=== PATIENT | female | born 1970 | race Caucasian/White ===

== ENCOUNTER 2019-05-03 17:54 | Inpatient (IN) | payer OTHER ==
[2019-05-03] MEDS ORDERED: HYDROmorphone 1 MG/ML 1 ML SYRINGE IVP STA (20:49)
[2019-05-03] MEDS ORDERED: ONDANSETRON 4 MG/2 ML VIAL IVP STA (20:49)
[2019-05-03] MEDS ORDERED: SODIUM CHLORIDE 0.9% 1,000 ML IV STA (20:49)
--- NOTE | 2019-05-03 21:25 | ED ---
Abdominal Pain HPI - General Chief Complaint: Abdominal Pain Stated Complaint: Bowel obstruction Time Seen by Provider: 05/03/19 20:37 Source: patient, RN notes reviewed Mode of arrival: ambulatory Limitations: no limitations - History of Present Illness Initial Comments: 49-year-old female presents emergency Department chief complaint abdominal pain, possible bowel obstruction. Patient states that she's had increase abdominal pain last couple days. Patient states that she is a history of Crohn's, prior bowel obstruction with call resection and colostomy with reversal. Patient states that she has been well recently but states that she's been bloated, increasing pain and she feels obstructed. Patient did have a very small bowel movement within last 24 hours. - Related Data Home Medications Medication Instructions Recorded Confirmed ALPRAZolam [Xanax] 0.5 mg PO BID PRN 05/03/19 05/03/19 Citalopram Hydrobromide [CeleXA] 40 mg PO DAILY 05/03/19 05/03/19 Ibuprofen [Motrin Ib] 800 mg PO Q8H PRN 05/03/19 05/03/19 L.acidoph,Paracasei, B.lactis 1 cap PO DAILY 05/03/19 05/03/19 [Probiotic] Multivitamins, Thera [Multivitamin 1 tab PO DAILY 05/03/19 05/03/19 (formulary)] traZODone HCL 100 mg PO HS PRN 05/03/19 05/03/19 Allergies Allergy/AdvReac Type Severity Reaction Status Date / Time Cephalosporins Allergy Rash/Hives Verified 05/03/19 19:57 codeine Allergy Dyspnea Verified 05/03/19 19:57 meperidine [From Demerol] Allergy Unknown Verified 05/03/19 19:57 morphine Allergy Unknown Verified 05/03/19 19:57 Penicillins Allergy Rash/Hives Verified 05/03/19 19:57 Sulfa (Sulfonamide Allergy Unknown Verified 05/03/19 19:57 Antibiotics) Review of Systems ROS Statement: Those systems with pertinent positive or pertinent negative responses have been documented in the HPI. ROS Other: All systems not noted in ROS Statement are negative. Past Medical History Additional Past Medical History / Comment(s): chron's, bowel obstruction History of Any Multi-Drug Resistant Organisms: None Reported Past Surgical History: Back Surgery, Bowel Resection, Section, Cholecystectomy, Hysterectomy Past Psychological History: Anxiety Smoking Status: Current every day smoker Past Alcohol Use History: Occasional Past Drug Use History: None Reported General Exam Limitations: no limitations General appearance: alert, in no apparent distress Head exam: Present: atraumatic, normocephalic, normal inspection Eye exam: Present: normal appearance, PERRL, EOMI. Absent: scleral icterus, conjunctival injection, periorbital swelling ENT exam: Present: normal exam, normal oropharynx, mucous membranes moist Neck exam: Present: normal inspection, full ROM. Absent: tenderness, meningismus, lymphadenopathy Respiratory exam: Present: normal lung sounds bilaterally. Absent: respiratory distress, wheezes, rales, rhonchi, stridor Cardiovascular Exam: Present: regular rate, normal rhythm, normal heart sounds. Absent: systolic murmur, diastolic murmur, rubs, gallop, clicks GI/Abdominal exam: Present: soft, distended, tenderness, guarding, normal bowel sounds. Absent: rebound, rigid Back exam: Absent: CVA tenderness (R), CVA tenderness (L) Neurological exam: Present: alert, oriented X3 Skin exam: Present: warm, dry, intact, normal color. Absent: rash Course Vital Signs 05/03/19 05/03/19 19:52 22:53 Temperature 98.4 F Pulse Rate 85 86 Respiratory 18 18 Rate Blood Pressure 151/100 163/95 O2 Sat by Pulse 100 97 Oximetry Medical Decision Making - Medical Decision Making 49-year-old female presented for abdominal pain. CT shows evidence of distal small bowel obstruction. Patient does have a history of multiple surgeries no surgeon has not seen surgeon in several years. patient will be admitted to dr. black with consult to medicine ng tube was placed on pain medication, antiemetics anxiolytics are ordered - Lab Data Result diagrams: 05/03/19 21:05/03/19 21:19 Lab Results 05/03/19 05/03/19 05/03/19 Range/Units 21:19 21: 21: WBC 12.5 H (3.8-10.6) k/uL RBC 4.37 (3.80-5.40) m/uL Hgb 14.2 (11.4-16.0) gm/dL Hct 42.4 (34.0-46.0) % MCV 97.0 (80.0-100.0) fL MCH 32.6 (25.0-35.0) pg MCHC 33.6 (31.0-37.0) g/dL RDW 12.3 (11.5-15.5) % Plt Count 178 (150-450) k/uL Neutrophils % 85 % Lymphocytes % 8 % Monocytes % 4 % Eosinophils % 1 % Basophils % 0 % Neutrophils # 10.6 H (1.3-7.7) k/uL Lymphocytes # 1.0 (1.0-4.8) k/uL Monocytes # 0.5 (0-1.0) k/uL Eosinophils # 0.1 (0-0.7) k/uL Basophils # 0.0 (0-0.2) k/uL Sodium 137 (137-145) mmol/L Potassium 4.4 (3.5-5.1) mmol/L Chloride 106 (98-107) mmol/L Carbon Dioxide 21 L (22-30) mmol/L Anion Gap 10 mmol/L BUN 12 (7-17) mg/dL Creatinine 0.61 (0.52-1.04) mg/dL Est GFR (CKD-EPI)AfAm >90 (>60 ml/min/1.73 sqM) Est GFR (CKD-EPI)NonAf >90 (>60 ml/min/1.73 sqM) Glucose 99 (74-99) mg/dL Plasma Lactic Acid Aiden (0.7-2.0) mmol/L Calcium 9.2 (8.4-10.2) mg/dL Total Bilirubin 0.6 (0.2-1.3) mg/dL AST 29 (14-36) U/L ALT 26 (9-52) U/L Alkaline Phosphatase 100 (38-126) U/L Total Protein 7.0 (6.3-8.2) g/dL Albumin 4.1 (3.5-5.0) g/dL Amylase <30 L (30-110) U/L Lipase 35 (23-300) U/L Urine Color Yellow Urine Appearance Clear (Clear) Urine pH 5.5 (5.0-8.0) Ur Specific [place] 1.018 (1.001-1.035) Urine Protein Trace H (Negative) Urine Glucose (UA) Negative (Negative) Urine Ketones Negative (Negative) Urine Blood Trace H (Negative) Urine Nitrite Negative (Negative) Urine Bilirubin Negative (Negative) Urine Urobilinogen <2.0 (<2.0) mg/dL Ur Leukocyte Esterase Negative (Negative) Urine RBC <1 (0-5) /hpf Urine WBC 3 (0-5) /hpf Ur Squamous Epith Cells <1 (0-4) /hpf Hyaline Casts 1 (0-2) /lpf Urine Mucus Few H (None) /hpf 05/03/19 Range/Units 22:13 WBC (3.8-10.6) k/uL RBC (3.80-5.40) m/uL Hgb (11.4-16.0) gm/dL Hct (34.0-46.0) % MCV (80.0-100.0) fL MCH (25.0-35.0) pg MCHC (31.0-37.0) g/dL RDW (11.5-15.5) % Plt Count (150-450) k/uL Neutrophils % % Lymphocytes % % Monocytes % % Eosinophils % % Basophils % % Neutrophils # (1.3-7.7) k/uL Lymphocytes # (1.0-4.8) k/uL Monocytes # (0-1.0) k/uL Eosinophils # (0-0.7) k/uL Basophils # (0-0.2) k/uL Sodium (137-145) mmol/L Potassium (3.5-5.1) mmol/L Chloride (98-107) mmol/L Carbon Dioxide (22-30) mmol/L Anion Gap mmol/L BUN (7-17) mg/dL Creatinine (0.52-1.04) mg/dL Est GFR (CKD-EPI)AfAm (>60 ml/min/1.73 sqM) Est GFR (CKD-EPI)NonAf (>60 ml/min/1.73 sqM) Glucose (74-99) mg/dL Plasma Lactic Acid Aiden 0.6 L (0.7-2.0) mmol/L Calcium (8.4-10.2) mg/dL Total Bilirubin (0.2-1.3) mg/dL AST (14-36) U/L ALT (9-52) U/L Alkaline Phosphatase (38-126) U/L Total Protein (6.3-8.2) g/dL Albumin (3.5-5.0) g/dL Amylase (30-110) U/L Lipase (23-300) U/L Urine Color Urine Appearance (Clear) Urine pH (5.0-8.0) Ur Specific [place] (1.001-1.035) Urine Protein (Negative) Urine Glucose (UA) (Negative) Urine Ketones (Negative) Urine Blood (Negative) Urine Nitrite (Negative) Urine Bilirubin (Negative) Urine Urobilinogen (<2.0) mg/dL Ur Leukocyte Esterase (Negative) Urine RBC (0-5) /hpf Urine WBC (0-5) /hpf Ur Squamous Epith Cells (0-4) /hpf Hyaline Casts (0-2) /lpf Urine Mucus (None) /hpf Disposition Clinical Impression: Small bowel obstruction Disposition: ADMITTED IP TO THIS [facility] Condition: Fair Referrals: None,Stated [Primary Care Provider] - 1-2 days
[2019-05-03 22:14] LABS: Basophils % (A) 0 %; Eosinophils # (A) 0.1 k/uL (0-0.7); Eosinophils % (A) 1 %; HCT 42.4 % (34.0-46.0); HGB 14.2 gm/dL (11.4-16.0); Lymphocytes % (A) 8 %; MCH 32.6 pg (25.0-35.0); MCHC 33.6 g/dL (31.0-37.0); Mean Platelet Volume 8.5; Monocytes # (A) 0.5 k/uL (0-1.0); Monocytes % (A) 4 %; Neutrophils # (A) 10.6 k/uL (1.3-7.7); Neutrophils % (A) 85 %; Platelet Count 178 k/uL (150-450); RBC 4.37 m/uL (3.80-5.40); RDW 12.3 % (11.5-15.5); WBC 12.5 k/uL (3.8-10.6)
[2019-05-03 22:16] LABS: ALT 26 U/L (9-52); AST 29 U/L (14-36); African American GFR (CKD) >90 (>60 ml/min/1.73 sqM); Albumin 4.1 g/dL (3.5-5.0); Alkaline Phosphatase 100 U/L (38-126); Amylase <30 U/L (30-110); Anion Gap 10 mmol/L; Blood Urea Nitrogen 12 mg/dL (7-17); Calcium 9.2 mg/dL (8.4-10.2); Carbon Dioxide 21 mmol/L (22-30); Chloride 106 mmol/L (98-107); Glucose 99 mg/dL (74-99); Potassium 4.4 mmol/L (3.5-5.1); Sodium 137 mmol/L (137-145); Total Bilirubin 0.6 mg/dL (0.2-1.3)
[2019-05-03 22:28] LABS: Mucus,Urine Few /hpf; Squamous Epithelial Cell,Urine <1 /hpf (0-4)
--- NOTE | 2019-05-03 22:30 | CT ---
EXAMINATION TYPE: CT abdomen pelvis w con DATE OF EXAM: 05/03/2019 COMPARISON: HISTORY: Lower abdominal pain with hx of obstruction CT DLP: 771.5 mGycm Automated exposure control for dose reduction was used. TECHNIQUE: Helical acquisition of images was performed from the lung bases through the pelvis. CONTRAST: Performed without Oral Contrast and with IV Contrast, patient injected with 100 mL of Isovue 300. FINDINGS: Lung bases are clear. There is no pleural effusion. Heart size is normal. There is no pericardial eff usion. There are clips from cholecystectomy. Liver shows no focal defect. Bile ducts are not dilated. Spleen appears intact. Stomach appears intact. There is no evidence of pancreatic mass. There are multiple dilated fluid and air-filled small bowel loops. Small bowel is dilated to 4.5 cm. There is total colectomy. There is ileal rectal anastomosis. There is dilated bowel down to the rectu m. There is 4 cm segment of narrowing of the distal ileum near the anastomosis. This is best seen on sagittal image 71. There is no free air. There is no ascites. There is no adrenal mass. Kidneys show satisfactory contrast opacification. There is no hydronephrosi s. There is no retroperitoneal adenopathy. Bladder is almost empty. Lumbar spine is intact. There is disc prosthesis at L4-5. There is no compression fracture. The bony pelvis is intact. IMPRESSION: THERE IS EVIDENCE OF A MECHANICAL DISTAL SMALL BOWEL OBSTRUCTION NEAR THE ILEORECTAL ANASTOMOSIS. THE RE IS LONG SEGMENT OF STRICTURE. MARKEDLY DILATED SMALL BOWEL. NO FREE AIR.
[2019-05-03 22:48] LABS: Appearance,Urine Clear (Clear); Bilirubin,Urine Negative (Negative); Blood,Urine Trace (Negative); Color,Urine Yellow; Glucose,Urine (UA) Negative (Negative); Hyaline Casts,Urine 1 /lpf (0-2); Ketones,Urine Negative (Negative); Leukocyte Esterase,Urine Negative (Negative); Nitrite,Urine Negative (Negative); PH, Urine 5.5 (5.0-8.0); Protein,Urine Trace (Negative); RBC,Urine <1 /hpf (0-5); Specific Gravity,Urine 1.018 (1.001-1.035); Urobilinogen,Urine <2.0 mg/dL (<2.0)
[2019-05-03] MEDS ORDERED: LORazepam 2 MG/ML INJ IV STA (22:56)
[2019-05-03] MEDS ORDERED: HYDROmorphone 0.5 MG/0.5 ML SYRINGE IVP STA (22:56)
[2019-05-03] MEDS ORDERED: NALOXONE 0.4 MG/ML 1 ML VIAL IV PRN (23:00)
--- NOTE | 2019-05-03 23:44 | XR ---
EXAMINATION TYPE: XR chest 1V confirm line [facility] DATE OF EXAM: 05/03/2019 COMPARISON: NONE HISTORY: Check tube placement TECHNIQUE: Single frontal view of the chest is obtained. FINDINGS: There is nasogastric tube folded on itself in the distal esophagus. Lungs are clear. Heart and mediastinum are normal. There are no hilar masses. IMPRESSION: The nasogastric tube is malpositioned and folded on itself in the lower esophagus.
[2019-05-04] MEDS ORDERED: LIDOCAINE URO-JET JELLY 2% 5 ML KIT URETHRAL ONE (00:23)
--- NOTE | 2019-05-04 01:11 | XR ---
EXAMINATION TYPE: XR chest 1V confirm line [facility] DATE OF EXAM: 05/04/2019 COMPARISON: Yesterday HISTORY: NG tube placement TECHNIQUE: Single frontal view of the chest is obtained. FINDINGS: There is nasogastric tube with the tip in the lateral stomach. Heart and mediastinum are n ormal. Lungs are clear of infiltrate. There is no pleural effusion. There are no hilar masses. IMPRESSION: Normal chest. No change.
[2019-05-04] MEDS: SODIUM CHLORIDE 0.9% 1,000 ML IV SCH ×2 (01:40→15:24)
[2019-05-04] MEDS: ONDANSETRON 4 MG/2 ML VIAL IVP PRN ×4 (01:43→22:55)
[2019-05-04] MEDS: HYDROmorphone 0.5 MG/0.5 ML SYRINGE IVP PRN ×2 (01:45→05:16)
[2019-05-04] MEDS: HYDROmorphone 1 MG/ML 1 ML SYRINGE IVP PRN ×5 (07:51→22:56)
[2019-05-04] MEDS: PANTOPRAZOLE 40 MG/10 ML VIAL IV SCH (07:52)
--- NOTE | 2019-05-04 11:31 | FL ---
EXAMINATION TYPE: FL barium enema DATE OF EXAM: 05/04/2019 COMPARISON: CT abdomen and pelvis from yesterday. HISTORY: Patient has history of Crohn's disease with prior surgeries presenting with pain on admissio n last night. Some improvement after placement of nasogastric tube and small bowel movement since CT per patient. TECHNIQUE: A single contrast barium enema study is performed due to history of prior distal colonic surgeries. Balloon catheter is not inflated. FINDINGS: Modeler view of the abdomen is deferred due to recent CT. There is stenosis on placement of pediatric rectal tube. There is short segment persistent severe leann rowing at the distal rectal surgical anastomosis over a short segment correlating with level of poste rior sutures on CT seen axial image 78. There is fluid filled distended distal sigmoid colon and rectum filling the presacral space which cor relates with CT. Contrast is run to the level of the splenic flexure at which point enema was termina ih. I do not see significant narrowing at area of mild wall thickening or inflammatory change near j unction of left and sigmoid colon in the left upper pelvis. There is a persistent area of mucosal irr egularity and mild narrowing corresponding to a level of focal colitis in the mid sigmoid colon of th e left pelvis. Incidental redemonstration of transitional type vertebra lumbosacral junction and surgical change marcos r this level. IMPRESSION: There is a single area of mild narrowing related to acute colitis proximal to mid sigmoi d colon level of the left pelvis. There is more severe narrowing at the distal rectal anastomosis sia n making difficulty passing pediatric rectal tube likely accounting for patient's more severe finding s of distal colonic obstruction.
[2019-05-04 11:36] VITALS: BMI 28.3
[2019-05-04 12:40] LABS: Basophils % (A) 0 %; Eosinophils # (A) 0.1 k/uL (0-0.7); Eosinophils % (A) 1 %; HCT 42.9 % (34.0-46.0); HGB 13.7 gm/dL (11.4-16.0); Lymphocytes # (A) 0.5 k/uL (1.0-4.8); Lymphocytes % (A) 5 %; MCH 32.7 pg (25.0-35.0); Macrocytosis Slight; Mean Platelet Volume 7.7; Monocytes # (A) 0.7 k/uL (0-1.0); Monocytes % (A) 6 %; Neutrophils # (A) 9.6 k/uL (1.3-7.7); Neutrophils % (A) 86 %; Platelet Count 182 k/uL (150-450); RBC 4.19 m/uL (3.80-5.40); RDW 12.3 % (11.5-15.5); WBC 11.2 k/uL (3.8-10.6)
[2019-05-04 12:47] LABS: African American GFR (CKD) >90 (>60 ml/min/1.73 sqM); Anion Gap 7 mmol/L; Blood Urea Nitrogen 17 mg/dL (7-17); Calcium 8.5 mg/dL (8.4-10.2); Carbon Dioxide 23 mmol/L (22-30); Chloride 109 mmol/L (98-107); Glucose 115 mg/dL (74-99); Potassium 4.3 mmol/L (3.5-5.1); Sodium 139 mmol/L (137-145)
[2019-05-04 12:58] LABS: MCV 102.2 fL (80.0-100.0)
[2019-05-04] MEDS: NA PHOS,M-B/NA PHOS,DI-BA 133 ML ENEMA RECTAL STA (14:44)
[2019-05-04] MEDS: HEPARIN SODIUM,PORCINE 5,000 UNIT/ML 1 ML VIAL SQ SCH ×2 (15:54→22:56)
--- NOTE | 2019-05-04 16:36 | P.GSHP ---
History of Present Illness H&P Date: 05/04/19 Chief Complaint: abdominal pain CHIEF COMPLAINT: Abdominal pain HISTORY OF PRESENT ILLNESS: 49-year-old female who presents to emergency room with a chief complaint of abdominal pain. Patient has a history of Crohns disease and underwent a subtotal colectomy in her 20s. She had a colostomy for 6 weeks that was reversed. She also reports having a bowel obstruction about 10 years ago and states "they were able to dilate my intestine and the obstruction resolved". Patient reports she began having severe generalized abdominal pain yesterday. She reports abdominal bloating, nausea, and vomiting. NG tube was placed in the ER. She reports improved abdominal bloating and pain at the time of my examination. She reports a few liquid stools this morning. Patient states she moved to this area about 3 years ago and has not followed with a GI physician since moving her because she has not had any acute issues with her Crohns disease. PAST MEDICAL HISTORY: See list. PAST SURGICAL HISTORY: See list. SOCIAL HISTORY: No illicit drug use. REVIEW OF SYSTEMS: CONSTITUTIONAL: Denies fever or chills. HEENT: Denies blurred vision, vision changes, or eye pain. Denies hemoptysis CARDIOVASCULAR: Denies chest pain or pressure. RESPIRATORY: No shortness of breath. GASTROINTESTINAL: Refer to HPI for pertinent findings HEMATOLOGIC: Denies bleeding disorders. GENITOURINARY: Denies any blood in urine. SKIN: Denies pruitis. Denies rash. PHYSICAL EXAM: VITAL SIGNS: Reviewed. GENERAL: Well-developed in no acute distress. HEENT: No sclera icterus. Extraocular movements grossly intact. Moist buccal mucosa. Head is atraumatic, normocephalic. ABDOMEN: Soft. Distended. Evidence of midline scar and right upper quadrant scar. tenderness with palpation. NEUROLOGIC: Alert and oriented. Cranial nerves II through XII grossly intact. LABORATORY DATA: WBC 12.5. Hemoglobin 14.2. Platelet count 178. Lactic acid 0.6. IMAGING: CT abdomen and pelvis: Evidence of mechanical distal small bowel obstruction near the ileorectal anastomosis. There is a long segment of stricture. Markedly dilated small bowel. No free air. ASSESSMENT: 1. Abdominal pain 2. Small bowel obstruction, CT reveals obstruction near the ileorectal anastomosis secondary to stricture 3. History of Crohn's 4. History of previous bowel obstruction with bowel resection 5. History of previous colostomy with subsequent reversal PLAN: 1. NPO except medications and ice chips. Continue IV fluids 2. Continue NG to LIS 3. Pain control 4. Obtain barium enema to further evaluate stricture Nurse practitioner note has been reviewed by physician. Signing provider agrees with the documented findings, assessment, and plan of care. Past Medical History Additional Past Medical History / Comment(s): chron's, bowel obstruction History of Any Multi-Drug Resistant Organisms: None Reported Past Surgical History: Back Surgery, Bowel Resection, Section, Cholecystectomy, Hysterectomy Past Psychological History: Anxiety Smoking Status: Current every day smoker Past Alcohol Use History: Occasional Past Drug Use History: None Reported Medications and Allergies Home Medications Medication Instructions Recorded Confirmed Type ALPRAZolam [Xanax] 0.5 mg PO BID PRN 05/03/19 05/03/19 History Citalopram Hydrobromide [CeleXA] 40 mg PO DAILY 05/03/19 05/03/19 History Ibuprofen [Motrin Ib] 800 mg PO Q8H PRN 05/03/19 05/03/19 History L.acidoph,Paracasei, B.lactis 1 cap PO DAILY 05/03/19 05/03/19 History [Probiotic] Multivitamins, Thera [Multivitamin 1 tab PO DAILY 05/03/19 05/03/19 History (formulary)] traZODone HCL 100 mg PO HS PRN 05/03/19 05/03/19 History Allergies Allergy/AdvReac Type Severity Reaction Status Date / Time Cephalosporins Allergy Rash/Hives Verified 05/03/19 19:57 codeine Allergy Dyspnea Verified 05/03/19 19:57 meperidine [From Demerol] Allergy Unknown Verified 05/03/19 19:57 morphine Allergy Unknown Verified 05/03/19 19:57 Penicillins Allergy Rash/Hives Verified 05/03/19 19:57 Sulfa (Sulfonamide Allergy Unknown Verified 05/03/19 19:57 Antibiotics) Surgical - Exam Vital Signs Temp Pulse Resp BP Pulse Ox 98.4 F 85 18 151/100 100 05/03/19 19:52 05/03/19 19:52 05/03/19 19:52 05/03/19 19:52 05/03/19 19:52 Results - Labs 05/04/19 12:01 05/04/19 12:01 Abnormal Lab Results - Last 24 Hours (Table) 05/03/19 05/03/19 05/03/19 Range/Units 21:19 21:19 21:19 WBC 12.5 H (3.8-10.6) k/uL Neutrophils # 10.6 H (1.3-7.7) k/uL Carbon Dioxide 21 L (22-30) mmol/L Plasma Lactic Acid Aiden (0.7-2.0) mmol/L Amylase <30 L (30-110) U/L Urine Protein Trace H (Negative) Urine Blood Trace H (Negative) Urine Mucus Few H (None) /hpf 05/03/19 Range/Units 22:13 WBC (3.8-10.6) k/uL Neutrophils # (1.3-7.7) k/uL Carbon Dioxide (22-30) mmol/L Plasma Lactic Acid Aiden 0.6 L (0.7-2.0) mmol/L Amylase (30-110) U/L Urine Protein (Negative) Urine Blood (Negative) Urine Mucus (None) /hpf Diabetes panel 05/03/19 Range/Units 21:19 Sodium 137 (137-145) mmol/L Potassium 4.4 (3.5-5.1) mmol/L Chloride 106 (98-107) mmol/L Carbon Dioxide 21 L (22-30) mmol/L BUN 12 (7-17) mg/dL Creatinine 0.61 (0.52-1.04) mg/dL Glucose 99 (74-99) mg/dL Calcium 9.2 (8.4-10.2) mg/dL AST 29 (14-36) U/L ALT 26 (9-52) U/L Alkaline Phosphatase 100 (38-126) U/L Total Protein 7.0 (6.3-8.2) g/dL Albumin 4.1 (3.5-5.0) g/dL Calcium panel 05/03/19 Range/Units 21:19 Calcium 9.2 (8.4-10.2) mg/dL Albumin 4.1 (3.5-5.0) g/dL Pituitary panel 05/03/19 Range/Units 21:19 Sodium 137 (137-145) mmol/L Potassium 4.4 (3.5-5.1) mmol/L Chloride 106 (98-107) mmol/L Carbon Dioxide 21 L (22-30) mmol/L BUN 12 (7-17) mg/dL Creatinine 0.61 (0.52-1.04) mg/dL Glucose 99 (74-99) mg/dL Calcium 9.2 (8.4-10.2) mg/dL Adrenal panel 05/03/19 Range/Units 21:19 Sodium 137 (137-145) mmol/L Potassium 4.4 (3.5-5.1) mmol/L Chloride 106 (98-107) mmol/L Carbon Dioxide 21 L (22-30) mmol/L BUN 12 (7-17) mg/dL Creatinine 0.61 (0.52-1.04) mg/dL Glucose 99 (74-99) mg/dL Calcium 9.2 (8.4-10.2) mg/dL Total Bilirubin 0.6 (0.2-1.3) mg/dL AST 29 (14-36) U/L ALT 26 (9-52) U/L Alkaline Phosphatase 100 (38-126) U/L Total Protein 7.0 (6.3-8.2) g/dL Albumin 4.1 (3.5-5.0) g/dL
[2019-05-04] MEDS: LORazepam 2 MG/ML INJ IV PRN (16:47)
--- NOTE | 2019-05-04 17:01 | P.CONS ---
History of Present Illness - Reason for Consult Consult date: 05/04/19 Medical management - Chief Complaint Abdominal pain - History of Present Illness Patient is a 49-year-old female with known history of Crohn's disease, history of bowel obstruction, history of bowel resection and previous abdominal surgeries came to ER with complaints of abdominal pain for the past 2 days. Patient says that she has been bloated and due to worsening abdominal pain presents to ER. Patient states that she had previous history of bowel obstruction. Patient is able to pass flatus and had a small bowel movement today. CT abdomen and pelvis showed there is evidence of mechanical distal small bowel obstruction. The EOMs rectal anastomosis. There is a long segment of strictu re. Markedly dilated small bowel. No free air. WBC 12.5 Barium enema showed there is a single area of mild narrowing related to acute colitis proximal to mid sigmoid colon level of the left wrist. It is more severe narrowing of the distal rectal anastomosis even making difficulty passing pediatric rectal tube likely accounting for patient's more severe findings of distal colonic obstruction. WBC 12.5, sodium 137 potassium 4.6 UA negative for infection Review of Systems Constitutional: Patient denies any fever or chills . No generalized weakness or weight loss. Abdomen: Abdominal pain along with nausea. No diarrhea.. Cardiovascular: Patient denies any chest pain or short of breath no palpitations. Respiratory: patient denied any cough is from production. No shortness of breath Neurologic: Patient denied any numbness or tingling headache. Musculoskeletal: Patient denies any complaints of joint swelling or deformity. Skin: Negative Psychiatric: Negative Endocrine: No heat or cold intolerance. No recent weight gain. Genitourinary: No dysuria or hematuria. All other 14 point ROS negative except the above Past Medical History Additional Past Medical History / Comment(s): chron's, bowel obstruction History of Any Multi-Drug Resistant Organisms: None Reported Past Surgical History: Back Surgery, Bowel Resection, Section, Cholecystectomy, Hysterectomy Past Psychological History: Anxiety Smoking Status: Current every day smoker Past Alcohol Use History: Occasional Past Drug Use History: None Reported Medications and Allergies Home Medications Medication Instructions Recorded Confirmed Type ALPRAZolam [Xanax] 0.5 mg PO BID PRN 05/03/19 05/03/19 History Citalopram Hydrobromide [CeleXA] 40 mg PO DAILY 05/03/19 05/03/19 History Ibuprofen [Motrin Ib] 800 mg PO Q8H PRN 05/03/19 05/03/19 History L.acidoph,Paracasei, B.lactis 1 cap PO DAILY 05/03/19 05/03/19 History [Probiotic] Multivitamins, Thera [Multivitamin 1 tab PO DAILY 05/03/19 05/03/19 History (formulary)] traZODone HCL 100 mg PO HS PRN 05/03/19 05/03/19 History Allergies Allergy/AdvReac Type Severity Reaction Status Date / Time Cephalosporins Allergy Rash/Hives Verified 05/03/19 19:57 codeine Allergy Dyspnea Verified 05/03/19 19:57 meperidine [From Demerol] Allergy Unknown Verified 05/03/19 19:57 morphine Allergy Unknown Verified 05/03/19 19:57 Penicillins Allergy Rash/Hives Verified 05/03/19 19:57 Sulfa (Sulfonamide Allergy Unknown Verified 05/03/19 19:57 Antibiotics) Physical Exam Vitals: Vital Signs Temp Pulse Pulse Resp BP BP Pulse Ox 05/04/19 09:31 98.1 F 88 17 131/76 94 L 05/04/19 04:47 98.3 F 88 18 132/79 97 05/03/19 22:53 86 18 163/95 97 05/03/19 19:52 98.4 F 85 18 151/100 100 Intake and Output 05/03/19 05/04/19 05/04/19 22:59 06:59 14:59 Other: Weight 72.575 kg PHYSICAL EXAMINATION: Patient is lying in the bed comfortably, no acute distress, awake alert and oriented.. HEENT: Normocephalic. Neck is supple. Pupils reactive. Nostrils clear. Oral cavity is moist. Ears reveal no drainage. Neck reveals no JVD, carotid bruits, or thyromegaly. CHEST EXAMINATION: Trachea is central. Symmetrical expansion. Bibasilar diminished air entry. Lung hummel clear to auscultation and percussion. CARDIAC: Normal S1, S2 with no gallops. No murmurs ABDOMEN: Soft. Mild tenderness. No guarding no rigidity. Bowel sounds sluggish. Bowel sounds normal. No organomegaly. No abdominal bruits. Extremities: reveal no edema. No clubbing or cyanosis Neurologically awake, alert, oriented x3 with well-coordinated movements. No focal deficits noted Skin: No rash or skin lesions. Psychiatric: Coperative. Nonsuicidal Musculoskeletal: No joint swelling or deformity. Normal range of motion. Results CBC & Chem 7: 05/04/19 12:01 05/04/19 12:01 Labs: Abnormal Lab Results - Last 24 Hours (Table) 05/03/19 05/03/19 05/03/19 Range/Units 21:19 21:19 21:19 WBC 12.5 H (3.8-10.6) k/uL Neutrophils # 10.6 H (1.3-7.7) k/uL Carbon Dioxide 21 L (22-30) mmol/L Plasma Lactic Acid Aiden (0.7-2.0) mmol/L Amylase <30 L (30-110) U/L Urine Protein Trace H (Negative) Urine Blood Trace H (Negative) Urine Mucus Few H (None) /hpf 05/03/19 Range/Units 22:13 WBC (3.8-10.6) k/uL Neutrophils # (1.3-7.7) k/uL Carbon Dioxide (22-30) mmol/L Plasma Lactic Acid Aiden 0.6 L (0.7-2.0) mmol/L Amylase (30-110) U/L Urine Protein (Negative) Urine Blood (Negative) Urine Mucus (None) /hpf Assessment and Plan Assessment: Acute distal small bowel obstruction History of bowel obstruction Crohn's disease currently not on any medications. history of bowel resection, colostomy and reversal Anxiety Ongoing nicotine addiction History of cholecystectomy, hysterectomy and DVT prophylaxis with heparin subcu Plan: Patient be continued on IV hydration, NG tube for decompression and pain management. Patient had barium enema showing narrowing at the distal rectal anastomosis. We will follow up closely along with you. Further recommendations based on the clinical course. Smoking cessation has been counseled Thank you for your consult. Time with Patient: Greater than 30
[2019-05-05] MEDS: LORazepam 2 MG/ML INJ IV PRN ×4 (00:37→23:31)
[2019-05-05] MEDS: SODIUM CHLORIDE 0.9% 1,000 ML IV SCH ×2 (01:28→17:48)
[2019-05-05] MEDS: HYDROmorphone 1 MG/ML 1 ML SYRINGE IVP PRN (03:50)
[2019-05-05] MEDS ORDERED: LIDOCAINE 1% 20 ML VIAL (10MG/ML) FOR IV START INTRADERMA PRN (05:40)
[2019-05-05] MEDS: ONDANSETRON 4 MG/2 ML VIAL IVP PRN ×3 (05:45→20:53)
[2019-05-05] MEDS: LACTATED RINGERS 1,000 ML IV SCH (05:46)
[2019-05-05] MEDS: PANTOPRAZOLE 40 MG/10 ML VIAL IV SCH (07:32)
[2019-05-05] MEDS: HYDROmorphone 0.5 MG/0.5 ML SYRINGE IVP PRN ×5 (07:32→21:59)
[2019-05-05] MEDS: CITALOPRAM HYDROBROMIDE 20 MG TAB PO SCH (07:33)
[2019-05-05] MEDS: HEPARIN SODIUM,PORCINE 5,000 UNIT/ML 1 ML VIAL SQ SCH ×3 (07:34→23:31)
[2019-05-05] MEDS: NA PHOS,M-B/NA PHOS,DI-BA 133 ML ENEMA RECTAL STA (08:13)
[2019-05-05 08:14] LABS: HCT 39.1 % (34.0-46.0); HGB 12.5 gm/dL (11.4-16.0); MCH 31.6 pg (25.0-35.0); MCV 98.7 fL (80.0-100.0); Mean Platelet Volume 8.8; Platelet Count 185 k/uL (150-450); RBC 3.96 m/uL (3.80-5.40); RDW 12.6 % (11.5-15.5); WBC 9.8 k/uL (3.8-10.6)
[2019-05-05 08:25] LABS: African American GFR (CKD) >90 (>60 ml/min/1.73 sqM); Anion Gap 8 mmol/L; Blood Urea Nitrogen 21 mg/dL (7-17); Calcium 8.5 mg/dL (8.4-10.2); Carbon Dioxide 25 mmol/L (22-30); Chloride 107 mmol/L (98-107); Glucose 94 mg/dL (74-99); Potassium 3.9 mmol/L (3.5-5.1); Sodium 140 mmol/L (137-145)
[2019-05-05] MEDS ORDERED: PROPOFOL 10 MG/ML 20 ML VIAL IV ONE (08:35)
[2019-05-05] MEDS ORDERED: LIDOCAINE 1% INJ 10MG/ML (20 ML MDV) ONE (08:35)
[2019-05-05] MEDS ORDERED: MIDAZOLAM 2 MG/2 ML VIAL ONE (08:35)
[2019-05-05 09:01] LABS: Band Neutrophils % 25 %; Lymphocytes # (M) 1.37 k/uL (1.0-4.8); Metamyelocytes % 1 %; Monocytes # (M) 0.88 k/uL (0-1.0); Neutrophils % (M) 53 %; Nucleated Red Blood Cells 0 /100 WBC (0-0); Total Cells Counted 200
[2019-05-05 09:02] LABS: Poikilocytosis (M) Present
[2019-05-05] MEDS ORDERED: IV FLUID CONTINUATION 1,000 ML IV ONE (09:11)
--- NOTE | 2019-05-05 09:17 | P.OP ---
Date of Procedure: 05/05/19 Preoperative Diagnosis: Anastomotic stricture Postoperative Diagnosis: Anastomotic stricture Crohn's disease Procedure(s) Performed: Sigmoidoscopy with dilation of ileal anal anastomosis. Biopsy of terminal ileum Anesthesia: JUAN ANTONIO Surgeon: Paddy Harris Pathology: other Condition: stable Disposition: PACU Description of Procedure: The patient's placed on the endoscopy table lateral position. She received IV sedation. Digital rectal exam revealed a very tight anastomosis proximally 2 cm from anal verge. The examining care could not be passed through the anastomosis. At this point the sigmoid scope placed patient anus and then the anastomosis visualized. The 18 mm balloon was then placed across the anastomosis the balloon was sequentially inflated and eventually held in the 15 mm position. The balloon was then withdrawn. The colonoscope was then advanced. In the terminal ileum there was evidence of inflammatory changes mucosa suggestive of Crohn's disease. This area is biopsied. This point scope withdrawn.
--- NOTE | 2019-05-05 21:57 | P.PN ---
Subjective Progress Note Date: 05/05/19 Principal diagnosis: Acute bowel obstruction with ileo anal stenosis Patient is a 49-year-old female with known history of Crohn's disease, history of bowel obstruction, history of bowel resection and previous abdominal surgeries came to ER with complaints of abdominal pain for the past 2 days. Patient says that she has been bloated and due to worsening abdominal pain presents to ER. Patient states that she had previous history of bowel obstruction. Patient is able to pass flatus and had a small bowel movement today. CT abdomen and pelvis showed there is evidence of mechanical distal small bowel obstruction. The EOMs rectal anastomosis. There is a long segment of stricture. Markedly dilated small bowel. No free air. WBC 12.5 Barium enema showed there is a single area of mild narrowing related to acute colitis proximal to mid sigmoid colon level of the left wrist. It is more severe narrowing of the distal rectal anastomosis even making difficulty passing pediatric rectal tube likely accounting for patient's more severe findings of distal colonic obstruction. WBC 12.5, sodium 137 potassium 4.6 UA negative for infection 05/05/2019 Patient says that her abdominal discomfort is much improved. Did have bowel movement. It is status post sigmoidoscopy with dilation of ileal anal anastomosis. Due to history of Crohn's disease and previous history of bowel resection and also history of dilatation, GI was consulted for further evaluation. No fever no chills. No chest pain or shortness of breath. No cough is from production. No nausea vomiting. Current medications reviewed. Active Medications Citalopram Hydrobromide (Celexa) 40 mg PO DAILY [facility] Last Admin: 05/05/19 07:33 Dose: 40 mg Documented by: Heparin Sodium (Porcine) (Heparin) 5,000 unit SQ Q8HR [facility] Last Admin: 05/05/19 16:15 Dose: 5,000 unit Documented by: Hydromorphone HCl (Dilaudid) 0.5 mg IVP Q3HR PRN PRN Reason: Moderate Pain Last Admin: 05/05/19 18:18 Dose: 0.5 mg Documented by: Hydromorphone HCl (Dilaudid) 1 mg IVP Q3HR PRN PRN Reason: Severe Pain Last Admin: 05/05/19 03:50 Dose: 1 mg Documented by: Sodium Chloride (Saline 0.9%) 1,000 mls @ 75 mls/hr IV .[id number] [facility] Last Admin: 05/05/19 17:48 Dose: Not Given Documented by: Lactated Ringer's (Lactated Ringers) 1,000 mls @ 20 mls/hr IV .Q24H [facility] Last Admin: 05/05/19 05:46 Dose: 20 mls/hr Documented by: Lidocaine HCl (.Xylocaine 1% Inj (10mg/Ml) For Iv Start) 0.1 ml INTRADERMA PER PROTOCOL PRN PRN Reason: IV Start Lorazepam (Ativan) 0.5 mg IV Q6HR PRN PRN Reason: Anxiety Last Admin: 05/05/19 16:21 Dose: 0.5 mg Documented by: Naloxone HCl (Narcan) 0.2 mg IV Q2M PRN PRN Reason: Opioid Reversal Ondansetron HCl (Zofran) 4 mg IVP Q6HR PRN PRN Reason: Nausea And Vomiting Last Admin: 05/05/19 20:53 Dose: 4 mg Documented by: Pantoprazole Sodium (Protonix) 40 mg IV DAILY [facility] Last Admin: 05/05/19 07:32 Dose: 40 mg Documented by: Objective - Vital Signs Vital signs: Vital Signs Temp 99.0 F 05/05/19 18:55 Pulse 56 L 05/05/19 18:55 Resp 18 05/05/19 18:55 BP 134/71 05/05/19 18:55 Pulse Ox 96 05/05/19 18:55 Intake & Output 05/05/19 05/05/19 05/06/19 06:59 18:59 06:59 Intake Total 300 Output Total 900 150 Balance -900 150 Intake: IV 300 Output: Gastric Drainage 900 150 Other: Voiding Method Toilet Toilet # Voids 1 - Exam PHYSICAL EXAMINATION: Patient is lying in the bed comfortably, no acute distress, awake alert and oriented.. HEENT: Normocephalic. Neck is supple. Pupils reactive. Nostrils clear. Oral cavity is moist. Ears reveal no drainage. Neck reveals no JVD, carotid bruits, or thyromegaly. CHEST EXAMINATION: Trachea is central. Symmetrical expansion. Lung hummel clear to auscultation and percussion. CARDIAC: Normal S1, S2 with no gallops. No murmurs ABDOMEN: Soft. Bowel sounds normal. No organomegaly. No abdominal bruits. Extremities: reveal no edema. No clubbing or cyanosis Neurologically awake, alert, oriented x3 with well-coordinated movements. No focal deficits noted Skin: No rash or skin lesions. Psychiatric: Coperative. Nonsuicidal Musculoskeletal: No joint swelling or deformity. Normal range of motion. - Labs CBC & Chem 7: 05/05/19 07:26 05/05/19 07:26 Labs: Abnormal Lab Results - Last 24 Hours (Table) 05/05/19 05/05/19 Range/Units 07:26 07:26 Metamyelocytes # (Man) 0.10 H (0) k/uL BUN 21 H (7-17) mg/dL Assessment and Plan Assessment: Acute distal small bowel obstruction. Status post Sigmoidoscopy with dilation of ileal anal anastomosis on 05/05/2019. History of bowel obstruction Crohn's disease currently not on any medications. history of bowel resection, colostomy and reversal Anxiety Ongoing nicotine addiction History of cholecystectomy, hysterectomy and DVT prophylaxis with heparin subcu Plan: Patient had barium enema showing narrowing at the distal rectal anastomosis. NG tube has been discontinued. Patient is having bowel movements. Tolerating liquid diet. Status post dilation of the stenosis. Await GI recommendations. w ill continue to follow. Smoking cessation has been counseled Time with Patient: Greater than 30
[2019-05-06] MEDS: HYDROmorphone 0.5 MG/0.5 ML SYRINGE IVP PRN ×2 (03:20→08:11)
[2019-05-06] MEDS: ONDANSETRON 4 MG/2 ML VIAL IVP PRN ×4 (03:23→23:37)
[2019-05-06] MEDS: LACTATED RINGERS 1,000 ML IV SCH (04:37)
[2019-05-06] MEDS: SODIUM CHLORIDE 0.9% 1,000 ML IV SCH ×2 (05:14→17:06)
--- NOTE | 2019-05-06 06:17 | P.CONS ---
History of Present Illness - Reason for Consult Consult date: 05/05/19 Crohn's disease Requesting physician: Paddy Harris - Chief Complaint Abdominal pain - History of Present Illness This 49-year-old female with an over 20 year history of complicated Crohn's disease requiring colectomy with ileoanal anastomosis who presented to the hospital with complaints of abdominal pain. The patient reported 2 days of abdominal pain, and distention with no flatus or bowel movements on presentation. The patient had a computed tomography scan of the abdomen and pelvis which showed a mechanical distal small bowel obstruction with a long segment of stricturing disease and a markedly dilated small bowel. Barium enema showed a single area of mild narrowing related to acute colitis more proximally and a severe narrowing or distally at the rectal anastomosis. Patient was seen by the surgical service and taken for colonoscopy with dilation of the anastomotic site with findings of this very tight anastomosis 2 cm from the anal verge dilated to 58 mm after which the colonoscope was advanced into the terminal ileum with findings of inflammatory mucosa suggestive of Crohn's disease which were biopsied. The patient is seen in bed reporting that she is tolerating a diet. She reports Crohn's disease was diagnosed when she was 26 at which point she had a total colectomy with ileoanal anastomosis. She reports that she was well for 10 years after this until developing a bowel obstruction at which point she required further surgical intervention which describes as a possible lysis of adhesions. She then did well until 3 or 4 years ago when she began having symptoms of pain she reports she was tried on steroid therapy as well as Imuran and biologic therapy with Humira at this time but did not feel that it helped her symptoms. She reports that her pain is usually in the right abdomen. She denies any perianal disease or fistulous disease. Currently she is reporting passing gas with no nausea or vomiting but does feel slightly dis tended. . Review of Systems REVIEW OF SYSTEMS: CONSTITUTIONAL: Denies any fevers, chills, weight change or fatigue. CARDIOVASCULAR: Denies any chest pain, palpitations high or low blood pressures RESPIRATORY: Denies any shortness of breath, hemoptysis or cough. GENITOURINARY: No dysuria or hematuria. MUSCULOSKELETAL: No weakness reported. SKIN: Denies any new rashes or lesions, jaundice or pallor. PSYCHIATRIC: Denies any depression or anxiety. NEUROLOGY: Denies headache, denies any new focal deficits. EARS/NOSE/THROAT: No recent hearing change, congestion, nasal discharge or sore throat. EYES: No pain in eyes, discharge or change in vision. GASTROINTESTINAL: As per HPI. Past Medical History Additional Past Medical History / Comment(s): chron's, bowel obstruction History of Any Multi-Drug Resistant Organisms: None Reported Past Surgical History: Back Surgery, Bowel Resection, Section, Cholecystectomy, Hysterectomy Past Psychological History: Anxiety Smoking Status: Current every day smoker Past Alcohol Use History: Occasional Past Drug Use History: None Reported Additional History: Family history: Reviewed with the patient and noncontributory to current medical presentation. Medications and Allergies Home Medications Medication Instructions Recorded Confirmed Type ALPRAZolam [Xanax] 0.5 mg PO BID PRN 05/03/19 05/03/19 History Citalopram Hydrobromide [CeleXA] 40 mg PO DAILY 05/03/19 05/03/19 History Ibuprofen [Motrin Ib] 800 mg PO Q8H PRN 05/03/19 05/03/19 History L.acidoph,Paracasei, B.lactis 1 cap PO DAILY 05/03/19 05/03/19 History [Probiotic] Multivitamins, Thera [Multivitamin 1 tab PO DAILY 05/03/19 05/03/19 History (formulary)] traZODone HCL 100 mg PO HS PRN 05/03/19 05/03/19 History Allergies Allergy/AdvReac Type Severity Reaction Status Date / Time Cephalosporins Allergy Rash/Hives Verified 05/03/19 19:57 codeine Allergy Dyspnea Verified 05/03/19 19:57 meperidine [From Demerol] Allergy Unknown Verified 05/03/19 19:57 morphine Allergy Unknown Verified 05/03/19 19:57 Penicillins Allergy Rash/Hives Verified 05/03/19 19:57 Sulfa (Sulfonamide Allergy Unknown Verified 05/03/19 19:57 Antibiotics) Physical Exam Vitals: Vital Signs Temp Pulse Resp BP Pulse Ox 05/05/19 14:19 98 F 92 16 159/88 95 05/05/19 07:00 98.4 F 92 16 147/76 95 05/05/19 01:17 99.2 F 96 18 118/71 94 L 05/04/19 18:50 98.3 F 101 H 18 145/78 94 L Intake and Output 05/05/19 05/05/19 05/05/19 06:59 14:59 22:59 Intake Total 300 Output Total 900 150 Balance -900 150 Intake: IV 300 Output: Gastric Drainage 900 150 Other: # Voids 1 On physical examination, patient appears comfortable in no apparent distress. HEAD: Normocephalic, atraumatic. EYES: No scleral icterus. No conjunctival injection. MOUTH: No lesions, tongue midline. NECK: Trachea midline, no gross abnormalities. CHEST: Clear to auscultation with no wheezing or rhonchi appreciated. HEART: Regular rate and rhythm. ABDOMEN: Soft, mildly tender to palpation. Bowel sounds are positive. No organomegaly. No guarding or rigidity. EXTREMITIES: No pedal edema. SKIN: No rashes, no jaundice. NEUROLOGIC: Alert and oriented x3. No focal deficits. Results CBC & Chem 7: 05/05/19 07:26 05/05/19 07:26 Labs: Abnormal Lab Results - Last 24 Hours (Table) 05/05/19 05/05/19 Range/Units 07:26 07:26 Metamyelocytes # (Man) 0.10 H (0) k/uL BUN 21 H (7-17) mg/dL CT scan - abdomen: report reviewed (Computed tomography scan of the abdomen and barium enema suggestive of a distal obstruction at the ileoanal anastomosis) Assessment and Plan (1) Crohn's disease Narrative/Plan: 49-year-old female with a medical history significant for Crohn's disease diagnosed at the age of 26 requiring colectomy with ileoanal anastomosis with presented with complaints of abdominal pain and was found on imaging to have stricturing and obstruction at the ileoanal anastomosis. The patient is status post colonoscopy with dilute dilation to 15 mm yesterday with evidence of inflammation proximally to the anastomosis consistent with Crohn's disease which was biopsied. She reports status after her colectomy at the age of 26 she had done well for 10 years after which she had symptoms of obstruction requiring laparoscopy with what was described as lysis of adhesions and has done well until 3 or 4 years ago when she again became symptomatic. At that time she reports being started on treatment with steroid therapy, Imuran and Humira but did not feel it improved her symptoms and has been on no medical treatment since that time. She denies any perianal or fistular lysing disease. Current Visit: Yes Status: Acute Code(s): K50.90 - CROHN'S DISEASE, UNSPECIFIED, WITHOUT COMPLICATIONS SNOMED Code(s): 19017391 (2) Small bowel obstruction Current Visit: Yes Status: Acute Code(s): K56.609 - UNSP INTESTNL OBST, UNSP TO PARTIAL VERSUS COMPLETE OBST SNOMED Code(s): 278648054 Plan: Supportive care Clear liquid diet ESR and CRP ordered Await pathology from small bowel biopsies Trial of Solu-Medrol 20 mg every 8 hours started Continue to follow her clinically Appreciate recommendations from surgical service Patient will need close follow-up with gastroenterology after discharge Thank you for allowing us to participate in the care of the patient we will continue to follow
[2019-05-06] MEDS: PANTOPRAZOLE 40 MG/10 ML VIAL IV SCH (07:48)
[2019-05-06] MEDS: CITALOPRAM HYDROBROMIDE 20 MG TAB PO SCH (07:49)
[2019-05-06] MEDS: HEPARIN SODIUM,PORCINE 5,000 UNIT/ML 1 ML VIAL SQ SCH ×3 (07:49→23:31)
[2019-05-06] MEDS: methylPREDNISolone SOD SUCCI 40 MG/ML 1 ML VIAL IV SCH ×3 (07:49→23:31)
[2019-05-06] MEDS ORDERED: methylPREDNISolone SOD SUCCI 40 MG/ML 1 ML VIAL IV SCH (09:00)
[2019-05-06] MEDS: ALPRAZolam 0.5 MG TAB PO PRN ×2 (10:13→21:45)
--- NOTE | 2019-05-06 12:57 | P.PN ---
Subjective Progress Note Date: 05/06/19 Principal diagnosis: History of Crohn's Status post sigmoidoscopy with dilation of ileal anal anastomosis by general surgery. Terminal ileum biopsies pending. Feeling better passing flatus. Requesting diet advancement. Afebrile. ESR 23. CRP 153.2. Receiving IV steroids 20 mg every 8 hours. Objective - Vital Signs Vital signs: Vital Signs Temp 99.2 F 05/06/19 07:00 Pulse 82 05/06/19 07:00 Resp 16 05/06/19 07:25 BP 126/75 05/06/19 07:00 Pulse Ox 97 05/06/19 07:00 Intake & Output 05/05/19 05/06/19 05/06/19 18:59 06:59 18:59 Intake Total 300 Output Total 150 Balance 150 Intake: IV 300 Output: Gastric Drainage 150 Other: Voiding Method Toilet # Voids 1 - Exam General appearance: The patient is alert, oriented, in no acute distress. HET: Head is normocephalic and atraumatic. Pupils are equal and reactive. Oropharynx is clear without lesions. Neck: Supple without lymphadenopathy. Trachea midline. Heart: S1 S2. Regular rate and rhythm. Lungs: No crackles or wheezes are heard. Abdomen: Soft, mildly bloated diffuse mild tenderness across mid abdomen with bowel sounds. No peritoneal signs. No palpable organomegaly or masses. Extremities: Normal skin color and turgor. No cyanosis, rash, ulceration, clubbing, or edema. Radial and pedal pulses are 2/4 bilaterally. Neurological: No focal deficits. Strength and sensation are grossly intact. - Labs CBC & Chem 7: 05/05/19 07:26 05/05/19 07:26 Labs: Abnormal Lab Results - Last 24 Hours (Table) 05/06/19 05/06/19 Range/Units 07:23 07:23 ESR 23 H (0-20) mm/hr C-Reactive Protein 153.2 H (<10.0) mg/L Assessment and Plan (1) Crohn's disease Narrative/Plan: 49-year-old female with a history of long-standing Crohn's disease diagnosed age of 26 requiring colectomy with ileoanal anastomosis with subsequent history of partial small bowel obstructions admitted with acute bowel obstruction stricturing at the ileoanal anastomosis status post sigmoidoscopy with dilation biopsies pending. Current Visit: Yes Status: Acute Code(s): K50.90 - CROHN'S DISEASE, UNSPECIFIED, WITHOUT COMPLICATIONS SNOMED Code(s): 65827358 (2) Small bowel obstruction Current Visit: Yes Status: Acute Code(s): K56.609 - UNSP INTESTNL OBST, UNSP TO PARTIAL VERSUS COMPLETE OBST SNOMED Code(s): 286441275 Plan: 1. Diet advance per general surgery. Continue with IV steroids close observation of CRP, CBC. Follow-up in the office in 3-4 weeks after discharge. We'll follow with you. Assessment and plan a care discussed with Dr. Russell
[2019-05-06] MEDS: KETOROLAC 30 MG/ML 1 ML VIAL IVP SCH ×3 (13:18→23:31)
[2019-05-06] MEDS ORDERED: SIMETHICONE 40 MG/0.6 ML DROPS 2,000 MG/30 ML BOTTLE PO PRN (13:59)
--- NOTE | 2019-05-06 14:25 | P.PN ---
Subjective Progress Note Date: 05/06/19 CHIEF COMPLAINT: Abdominal pain HISTORY OF PRESENT ILLNESS: Patient is status post sigmoidoscopy with dilation of ileal anal anastomosis. Patient is tolerating full liquid diet. She reports having loose bowel movements. Abdominal pain is improved. No nausea or vomiting. PHYSICAL EXAM: VITAL SIGNS: Reviewed. GENERAL: Well-developed in no acute distress. HEENT: No sclera icterus. Extraocular movements grossly intact. Moist buccal m ucosa. Head is atraumatic, normocephalic. ABDOMEN: Soft. Nondistended. Nontender. Evidence of midline scar and right upper quadrant scar. NEUROLOGIC: Alert and oriented. Cranial nerves II through XII grossly intact. ASSESSMENT: 1. Abdominal pain 2. Small bowel obstruction, CT reveals obstruction near the ileorectal anastomosis secondary to stricture 3. History of Crohn's 4. History of previous bowel obstruction with bowel resection 5. History of previous colostomy with subsequent reversal PLAN: 1. Advance diet 2. GI on consult. Appreciate recommendations. 3. IV steroids per GI 4. No surgical intervention recommended at this time Nurse practitioner note has been reviewed by physician. Signing provider agrees with the documented findings, assessment, and plan of care. Objective - Vital Signs Vital signs: Vital Signs Temp 98.6 F 05/06/19 12:54 Pulse 86 05/06/19 12:54 Resp 16 05/06/19 12:54 BP 128/77 05/06/19 12:54 Pulse Ox 97 05/06/19 07:00 Intake & Output 05/05/19 05/06/19 05/06/19 18:59 06:59 18:59 Intake Total 300 Output Total 150 Balance 150 Intake: IV 300 Output: Gastric Drainage 150 Other: Voiding Method Toilet # Voids 1 - Labs CBC & Chem 7: 05/05/19 07:26 05/05/19 07:26 Labs: Abnormal Lab Results - Last 24 Hours (Table) 05/06/19 05/06/19 Range/Units 07:23 07:23 ESR 23 H (0-20) mm/hr C-Reactive Protein 153.2 H (<10.0) mg/L
[2019-05-06] MEDS: HYDROmorphone 2 MG TAB PO PRN ×2 (17:00→21:45)
[2019-05-06] MEDS ORDERED: traZODone HCL 100 MG TAB PO PRN (19:23)
--- NOTE | 2019-05-06 22:24 | P.PN ---
Subjective Progress Note Date: 05/06/19 Principal diagnosis: Acute bowel obstruction with ileo anal stenosis Patient is a 49-year-old female with known history of Crohn's disease, history of bowel obstruction, history of bowel resection and previous abdominal surgeries came to ER with complaints of abdominal pain for the past 2 days. Patient says that she has been bloated and due to worsening abdominal pain presents to ER. Patient states that she had previous history of bowel obstruction. Patient is able to pass flatus and had a small bowel movement today. CT abdomen and pelvis showed there is evidence of mechanical distal small bowel obstruction. The EOMs rectal anastomosis. There is a long segment of stricture. Markedly dilated small bowel. No free air. WBC 12.5 Barium enema showed there is a single area of mild narrowing related to acute colitis proximal to mid sigmoid colon level of the left wrist. It is more severe narrowing of the distal rectal anastomosis even making difficulty passing pediatric rectal tube likely accounting for patient's more severe findings of distal colonic obstruction. WBC 12.5, sodium 137 potassium 4.6 UA negative for infection 05/05/2019 Patient says that her abdominal discomfort is much improved. Did have bowel movement. It is status post sigmoidoscopy with dilation of ileal anal anastomosis. Due to history of Crohn's disease and previous history of bowel resection and also history of dilatation, GI was consulted for further evaluation. No fever no chills. No chest pain or shortness of breath. No cough is from production. No nausea vomiting. 05/06/2019 Patient denied any complaints of abdominal pain today. Patient does have loose bowel movements. Tolerating oral diet. Currently on liquid diet and is being advanced. Patient was seen by GI and recommends methylprednisolone 20 mg every 8 hourly currently. CRP 153 ESRD 23 No surgical intervention recommended. Patient has been afebrile. Anticipate discharge in next 24-48 hours. Current medications reviewed. Active Medications Citalopram Hydrobromide (Celexa) 40 mg PO DAILY [facility] Last Admin: 05/05/19 07:33 Dose: 40 mg Documented by: Heparin Sodium (Porcine) (Heparin) 5,000 unit SQ Q8HR [facility] Last Admin: 05/05/19 16:15 Dose: 5,000 unit Documented by: Hydromorphone HCl (Dilaudid) 0.5 mg IVP Q3HR PRN PRN Reason: Moderate Pain Last Admin: 05/05/19 18:18 Dose: 0.5 mg Documented by: Hydromorphone HCl (Dilaudid) 1 mg IVP Q3HR PRN PRN Reason: Severe Pain Last Admin: 05/05/19 03:50 Dose: 1 mg Documented by: Sodium Chloride (Saline 0.9%) 1,000 mls @ 75 mls/hr IV .[id number] [facility] Last Admin: 05/05/19 17:48 Dose: Not Given Documented by: Lactated Ringer's (Lactated Ringers) 1,000 mls @ 20 mls/hr IV .Q24H [facility] Last Admin: 05/05/19 05:46 Dose: 20 mls/hr Documented by: Lidocaine HCl (.Xylocaine 1% Inj (10mg/Ml) For Iv Start) 0.1 ml INTRADERMA PER PROTOCOL PRN PRN Reason: IV Start Lorazepam (Ativan) 0.5 mg IV Q6HR PRN PRN Reason: Anxiety Last Admin: 05/05/19 16:21 Dose: 0.5 mg Documented by: Naloxone HCl (Narcan) 0.2 mg IV Q2M PRN PRN Reason: Opioid Reversal Ondansetron HCl (Zofran) 4 mg IVP Q6HR PRN PRN Reason: Nausea And Vomiting Last Admin: 05/05/19 20:53 Dose: 4 mg Documented by: Pantoprazole Sodium (Protonix) 40 mg IV DAILY [facility] Last Admin: 05/05/19 07:32 Dose: 40 mg Documented by: Objective - Vital Signs Vital signs: Vital Signs Temp 98.2 F 05/06/19 19:14 Pulse 78 05/06/19 19:14 Resp 16 05/06/19 19:14 BP 147/84 05/06/19 19:14 Pulse Ox 96 05/06/19 19:14 Intake & Output 05/06/19 05/06/19 05/07/19 06:59 18:59 06:59 Other: Voiding Method Toilet # Voids 2 - Exam PHYSICAL EXAMINATION: Patient is lying in the bed comfortably, no acute distress, awake alert and oriented.. HEENT: Normocephalic. Neck is supple. Pupils reactive. Nostrils clear. Oral cavity is moist. Ears reveal no drainage. Neck reveals no JVD, carotid bruits, or thyromegaly. CHEST EXAMINATION: Trachea is central. Symmetrical expansion. Lung hummel clear to auscultation and percussion. CARDIAC: Normal S1, S2 with no gallops. No murmurs ABDOMEN: Soft. Bowel sounds normal. No organomegaly. No abdominal bruits. Extremities: reveal no edema. No clubbing or cyanosis Neurologically awake, alert, oriented x3 with well-coordinated movements. No focal deficits noted Skin: No rash or skin lesions. Psychiatric: Coperative. Nonsuicidal Musculoskeletal: No joint swelling or deformity. Normal range of motion. - Labs CBC & Chem 7: 05/05/19 07:26 05/05/19 07:26 Labs: Abnormal Lab Results - Last 24 Hours (Table) 05/06/19 05/06/19 Range/Units 07:23 07:23 ESR 23 H (0-20) mm/hr C-Reactive Protein 153.2 H (<10.0) mg/L Assessment and Plan Assessment: Acute distal small bowel obstruction. Status post Sigmoidoscopy with dilation of ileal anal anastomosis on 05/05/2019. History of bowel obstruction Crohn's disease . Started on IV steroids. history of bowel resection, colostomy and reversal Anxiety Ongoing nicotine addiction History of cholecystectomy, hysterectomy and DVT prophylaxis with heparin subcu Plan: Patient had barium enema showing narrowing at the distal rectal anastomosis. NG tube has been discontinued. Patient is having bowel movements. Tolerating liquid diet. Status post dilation of the stenosis. Patient was seen by GI and was started on IV steroids. No surgical intervention recommended.. Smoking cessation has been counseled Time with Patient: Greater than 30
[2019-05-07] MEDS: LACTATED RINGERS 1,000 ML IV SCH (01:42)
[2019-05-07] MEDS: KETOROLAC 30 MG/ML 1 ML VIAL IVP SCH ×2 (05:06→12:17)
[2019-05-07 07:42] VITALS: BP 143/84; PULSE 68; RESP 12; TEMP 98.2
[2019-05-07 07:43] LABS: Basophils % (A) 0 %; Eosinophils # (A) 0.1 k/uL (0-0.7); Eosinophils % (A) 1 %; HCT 37.7 % (34.0-46.0); HGB 12.5 gm/dL (11.4-16.0); Lymphocytes # (A) 0.7 k/uL (1.0-4.8); Lymphocytes % (A) 12 %; MCH 32.7 pg (25.0-35.0); Mean Platelet Volume 7.4; Monocytes # (A) 0.6 k/uL (0-1.0); Monocytes % (A) 9 %; Neutrophils # (A) 4.4 k/uL (1.3-7.7); Neutrophils % (A) 73 %; Platelet Count 129 k/uL (150-450); RBC 3.81 m/uL (3.80-5.40); WBC 6.1 k/uL (3.8-10.6)
[2019-05-07] MEDS: ONDANSETRON 4 MG/2 ML VIAL IVP PRN (07:47)
[2019-05-07] MEDS: HYDROmorphone 2 MG TAB PO PRN ×2 (07:47→14:21)
[2019-05-07] MEDS: HEPARIN SODIUM,PORCINE 5,000 UNIT/ML 1 ML VIAL SQ SCH (07:47)
[2019-05-07] MEDS: PANTOPRAZOLE 40 MG/10 ML VIAL IV SCH (07:47)
[2019-05-07] MEDS: CITALOPRAM HYDROBROMIDE 20 MG TAB PO SCH (07:47)
[2019-05-07] MEDS: SODIUM CHLORIDE 0.9% 1,000 ML IV SCH (07:48)
[2019-05-07] MEDS: methylPREDNISolone SOD SUCCI 40 MG/ML 1 ML VIAL IV SCH (07:48)
[2019-05-07 07:55] LABS: African American GFR (CKD) >90 (>60 ml/min/1.73 sqM); Anion Gap 10 mmol/L; Blood Urea Nitrogen 10 mg/dL (7-17); Calcium 8.8 mg/dL (8.4-10.2); Carbon Dioxide 24 mmol/L (22-30); Chloride 99 mmol/L (98-107); Glucose 113 mg/dL (74-99); Potassium 4.3 mmol/L (3.5-5.1); Sodium 133 mmol/L (137-145)
[2019-05-07] MEDS ORDERED: PANTOPRAZOLE 40 MG TABLET PO SCH (08:00)
[2019-05-07] MEDS: ALPRAZolam 0.5 MG TAB PO PRN (08:05)
[2019-05-07 08:15] LABS: C Reactive Protein 79.6 mg/L (<10.0)
--- NOTE | 2019-05-07 12:13 | P.DS ---
Providers Date of admission: 05/04/19 00:07 Expected date of discharge: 05/07/19 Attending physician: Paddy Harris Consults: 05/03/19 23:00 Consult Physician Urgent Consulting Provider: Bobbi Berrios Consult Reason/Comments: medical management, SBO Do you want consulting provider notified?: Yes 05/05/19 11:41 Consult Physician Routine Consulting Provider: Leonardo Collier Consult Reason/Comments: crohns, severe stricture at previous anastomosis site Do you want consulting provider notified?: Yes Primary care physician: Stated None Hospital Course: Patient presented to the hospital with abdominal pain and distention. Patient was found to have active inflammation of her ileoanal pull-through from Crohn's disease. Patient underwent flexible sigmoidoscopy with biopsy and dilation. A she has done much better after the dilation and is moving her bowels more regularly at this time. She is tolerating a diet. No nausea or vomiting. She would like to go home today. She was seen by GI during this hospital stay. She plans to follow up with them post discharge. Patient Condition at Discharge: Fair Plan - Discharge Summary Discharge Rx Participant: No New Discharge Prescriptions: No Action Multivitamins, Thera [Multivitamin (formulary)] 1 tab PO DAILY Citalopram Hydrobromide [CeleXA] 40 mg PO DAILY ALPRAZolam [Xanax] 0.5 mg PO BID PRN PRN Reason: Anxiety traZODone HCL 100 mg PO HS PRN PRN Reason: Insomnia L.acidoph,Paracasei, B.lactis [Probiotic] 1 cap PO DAILY Ibuprofen [Motrin Ib] 800 mg PO Q8H PRN PRN Reason: Pain Discharge Medication List ALPRAZolam [Xanax] 0.5 mg PO BID PRN 05/03/19 [History] Citalopram Hydrobromide [CeleXA] 40 mg PO DAILY 05/03/19 [History] Ibuprofen [Motrin Ib] 800 mg PO Q8H PRN 05/03/19 [History] L.acidoph,Paracasei, B.lactis [Probiotic] 1 cap PO DAILY 05/03/19 [History] Multivitamins, Thera [Multivitamin (formulary)] 1 tab PO DAILY 05/03/19 [History] traZODone HCL 100 mg PO HS PRN 05/03/19 [History] Follow up Appointment(s)/Referral(s): None,Stated [Primary Care Provider] - 1-2 days Leonardo Collier MD [STAFF PHYSICIAN] - 06/15/19 2:30 pm Paddy Harris MD [STAFF PHYSICIAN] - 1 Week
--- NOTE | 2019-05-07 15:07 | PN ---
PROGRESS NOTE DATE OF SERVICE: 05/07/2019 Patient is a 49-year-old pleasant white female admitted to the hospital with symptoms of abdominal pain, abdominal distention and constipation. She has a history of Crohn's disease for which she underwent total proctocolectomy and ( ) anastomosis. She underwent a colonoscopy by Dr. Harris 2 days ago and was noted to have ileorectal anastomosis which was dilated with an 18 mm balloon following which the patient is gradually doing better. She started on a regular diet yesterday. Abdominal distention has improved. Had several bowel movements last night. She is also on IV Solu-Medrol 20 mg q.8 hours which was changed to prednisone 40 mg this morning and feeling better. PHYSICAL EXAMINATION: She appears comfortable. No apparent distress. VITAL SIGNS: Stable. Blood pressure is 132/82, pulse rate 68, temperature 98.2. HEENT examination unremarkable. Conjunctivae pink. Sclerae anicteric. Oral cavity, no lesions. NECK: No JVD or lymph node enlargement. CHEST: Clear to auscultation. HEART: Regular rate and rhythm. ABDOMEN: Soft. Bowel sounds are positive. It was slightly distended but it was nontender. EXTREMITIES: No pedal edema. SKIN: No rashes. NEURO: Alert and oriented x3. No focal deficits. LABS: From today WBC 6.1, hemoglobin 12.5, platelets are 129. Basic metabolic panel is within normal limits. CRP is decreased to 79.6. IMPRESSION: Abdominal pain and abdominal distention secondary to stricture at the ileorectal anastomosis, status post dilation with an [address] Harris 2 days ago and since then, her symptoms are gradually improving. Biopsies from the stricture showed evidence of some inflammation but no active Crohn's disease. On IV Solu-Medrol 20 mg q.8h for 2 days and changed to prednisone 40 mg daily this morning. Patient doing much better, tolerating regular diet well. RECOMMENDATION: The patient can be discharged home today. She was advised to continue with prednisone 40 mg daily for 1 week and taper it by 5 mg every week. She will be seen in the office in 2-3 weeks from now. Thank you for this consultation. MMODL / IJN: [id number] /
== END 2019-05-07 14:36 | disposition home or self-care (01) | DRG 387 ==
LOC: EC 17:54 → 4SSUR 05-04 00:07
PROVIDERS: ADMIT Surgery; ATTEND Surgery
PROC: 0D7Q8ZZ Dilation of Anus, Via Natural or Artificial Opening Endoscopic (ICD-10-PCS; principal; 2019-05-05 07:30)
PROC: 0D7B8ZZ Dilation of Ileum, Via Natural or Artificial Opening Endoscopic (ICD-10-PCS; 2019-05-05 07:30)
DX: K50.912 Crohn's disease, unspecified, with intestinal obstruction (principal); F17.200 Nicotine dependence, unspecified, uncomplicated; F41.9 Anxiety disorder, unspecified; Z79.899 Other long term (current) drug therapy; Z90.49 Acquired absence of other specified parts of digestive tract; Z90.710 Acquired absence of both cervix and uterus; Z88.1 Allergy status to other antibiotic agents; Z88.5 Allergy status to narcotic agent; Z88.0 Allergy status to penicillin; Z88.2 Allergy status to sulfonamides
CPT/HCPCS: 36415; 45380; 45386; 74177; 74270; 80048; 80053; 81001; 82150; 83605; 83690; 85025; 85652; 86140; 88305; 96361; 96374; 96375; 96376; 99285

== ENCOUNTER 2019-09-21 08:03 | Day surgery (SDC) | payer OTHER ==
[2019-09-19 12:16] VITALS: BMI 23.9
[~2019-09-21 08:03] MED LIST: LACTATED RINGERS 1,000 ML IV SCH; LIDOCAINE 1% (10MG/ML) FOR IV START INTRADERMA PRN
[2019-09-21 08:44] VITALS: TEMP 97.6
[2019-09-21] MEDS ORDERED: PROPOFOL 10 MG/ML 20 ML VIAL IV ONE (09:27)
[2019-09-21] MEDS ORDERED: LIDOCAINE 1% INJ 10MG/ML (20 ML MDV) ONE (09:27)
--- NOTE | 2019-09-21 09:48 | P.PCN ---
Date of Procedure: 09/21/19 Procedure(s) Performed: Patient is a 49-year-old year-old white female is scheduled for flexible sig moidoscopy as part of evaluation of rectal anastomotic stricture. The patient was diagnosed with Crohn's disease at age 26 and underwent subtotal colectomy with ileostomy about 23 years ago. She was recently admitted to [facility] with small small bowel obstruction secondary to rectal anastomotic stricture for which she underwent a endoscopy with dilation by in July of this year. She was also noted to have active ileitis of the distal ileum. About 4 years ago she was was treated with Humira and Imuran but she stopped it because of side effects . Presently being approved for Remicade infusions. In the meantime because of ongoing symptoms she is scheduled for repeat flexible sigmoidoscopy with dilation of anastomotic stricture. Preoperative diagnosis; symptomatic ileorectal anastomotic stricture Procedure Flexible sigmoidoscopy with biopsy and dilation Anesthesia MAC Description of procedure: The patient was brought into the endoscopy unit IV conscious sedation was administered by anesthesia and continuous monitoring. Initial digital rectal examination revealed a tight anal stricture. The Olympus CF 160 video upper endoscopy as then inserted into the rectum and at 20 cm from the anal verge there was a tight the ileorectal stricture identified. I could not the scope advance the scope. Using a part of this balloon and with the guidewire t echnijuanito I was using able to advance the diet guidewire into the through the stricture into the distal ileum following this the balloon was slowly advanced. At this time I performed balloon dilation using 12-15 mm TTS balloon for 90 seconds in a sequential fashion. Following this I was able to advance the upper scope into the distal ileum and was advanced with ease 60 cm. There were scattered erosions with some ulcerations noted in the distal ileum and biopsies were done from this area. The scope at this time was withdrawn. Once again the stricture was identified. Some mucosal oozing noted at the site of dilation. The rectum itself appeared normal. Also there was an anal stricture noted. Patient tolerated the procedure well. Impression: Tight Anal stricture Severe ileorectal anastomotic stricture at 20 cm from the anal verge status post balloon dilation using 12-15 mm TTS balloon as described above Scattered erosions in the distal ileum status post biopsy Recommendations Findings of this examination were discussed with the patient as well as a family. At this time will await the biopsy results. In the meantime we will get an approval for Remicade infusions treat Street active Crohn's disease at the distal ileum as well as anastomosis. If she becomes symptomatic we'll consider repeat upper flexible sigmoidoscopy with dilation in the near future. She'll be seen in office in 3-4 weeks.
[2019-09-21 10:03] VITALS: BP 121/77; PULSE 68; RESP 17
== END 2019-09-21 10:49 | disposition home or self-care (01) ==
LOC: ORWHC2ENDO 08:03
PROVIDERS: ATTEND Internal Medicine Gastroenterology
DX: K62.4 Stenosis of anus and rectum (principal); K63.3 Ulcer of intestine; K52.9 Noninfective gastroenteritis and colitis, unspecified; K50.90 Crohn's disease, unspecified, without complications; Z90.49 Acquired absence of other specified parts of digestive tract; Z93.2 Ileostomy status; Z98.0 Intestinal bypass and anastomosis status; I10 Essential (primary) hypertension; F39 Unspecified mood [affective] disorder; Z79.899 Other long term (current) drug therapy; Z88.1 Allergy status to other antibiotic agents; Z88.5 Allergy status to narcotic agent; Z88.0 Allergy status to penicillin; Z88.2 Allergy status to sulfonamides
CPT/HCPCS: 88305; 45331; 45340; J2001; J2704; C1726

== ENCOUNTER 2020-05-10 13:56 | Inpatient (IN) | payer OTHER ==
[2020-05-10] MEDS ORDERED: ONDANSETRON 4 MG/2 ML VIAL IVP STA (14:44)
[2020-05-10] MEDS ORDERED: HYDROmorphone 0.5 MG/0.5 ML SYRINGE IVP STA ×2 (14:44→15:47)
[2020-05-10] MEDS ORDERED: SODIUM CHLORIDE 0.9% 1,000 ML IV STA (14:44)
--- NOTE | 2020-05-10 14:52 | ED ---
Abdominal Pain HPI - General Source: patient, RN notes reviewed Mode of arrival: ambulatory Limitations: no limitations <Alvarez Chamorro - Last Filed: 05/10/20 16:26> <Sharyn Nelson - Last Filed: 05/13/20 22:06> - General Chief Complaint: Abdominal Pain Stated Complaint: Abdominal pain Time Seen by Provider: 05/10/20 14:30 - History of Present Illness Initial Comments: This a 50-year-old female sent emergency Department with chief complaint of abdominal pain, concern for bowel obstruction. Patient had colectomy 20 years ago and states that she's had some recurrent bowel obstructions in which she states only one has been surgical. Patient states that she has a little stool few days ago with states that she is now not passing any gas states that she feels bloated, distended increasing pain. She does see Dr. Hernandez and receives Remicade every 8 weeks. Patient's noted her symptoms typically increase closer to her dosing. She reports no fevers or chills no chest pain or shortness of breath no dysuria no hematuria. (Alvarez Chamorro) - Related Data Home Medications Medication Instructions Recorded Confirmed Citalopram Hydrobromide [CeleXA] 40 mg PO DAILY 05/03/19 05/10/20 Ibuprofen [Motrin Ib] 800 mg PO ONCE PRN 05/03/19 05/10/20 amLODIPine [Norvasc] 10 mg PO HS 09/19/19 05/10/20 Acetaminophen [Tylenol Arthritis] 650 mg PO ONCE PRN 05/10/20 05/10/20 Albuterol Sulfate [Proair Hfa] 2 puff INHALATION RT-Q4H PRN 05/10/20 05/10/20 LORazepam [Ativan] 0.5 mg PO Q12HR PRN 05/10/20 05/10/20 Levocetirizine Dihydrochloride 5 mg PO DAILY 05/10/20 05/10/20 [Xyzal] Montelukast [Singulair] 10 mg PO DAILY 05/10/20 05/10/20 Olopatadine HCl [Patanol] 1 drop BOTH EYES DAILY 05/10/20 05/10/20 inFLIXimab [Remicade] 100 mg IVPB Q56D 05/10/20 05/10/20 traZODone HCL [Desyrel] 100 mg PO HS 05/10/20 05/10/20 Previous Rx's Medication Instructions Recorded predniSONE See Taper PO DIRECTED #70 tab 05/13/20 Allergies Allergy/AdvReac Type Severity Reaction Status Date / Time Cephalosporins Allergy Rash/Hives Verified 05/10/20 15:53 codeine Allergy Dyspnea Verified 05/10/20 15:53 meperidine [From Demerol] Allergy Unknown Verified 05/10/20 15:53 morphine Allergy Unknown Verified 05/10/20 15:53 Penicillins Allergy Rash/Hives Verified 05/10/20 15:53 Sulfa (Sulfonamide Allergy Unknown Verified 05/10/20 15:53 Antibiotics) Review of Systems ROS Other: All systems not noted in ROS Statement are negative. <Alvarez Chamorro - Last Filed: 05/10/20 16:26> ROS Other: All systems not noted in ROS Statement are negative. <Sharyn Nelson - Last Filed: 05/13/20 22:06> ROS Statement: Those systems with pertinent positive or pertinent negative responses have been documented in the HPI. Past Medical History Past Medical History: Hypertension Additional Past Medical History / Comment(s): chron's, bowel obstruction History of Any Multi-Drug Resistant Organisms: None Reported Past Surgical History: Back Surgery, Bowel Resection, Section, Cholecystectomy, Hysterectomy Additional Past Surgical History / Comment(s): COLONOSCOPY Past Anesthesia/Blood Transfusion Reactions: No Reported Reaction Past Psychological History: Anxiety Smoking Status: Current every day smoker Past Alcohol Use History: Occasional Past Drug Use History: None Reported - Past Family History Mother Family Medical History: No Reported History <Alvarez Chamorro - Last Filed: 05/10/20 16:26> General Exam Limitations: no limitations General appearance: alert, in no apparent distress Head exam: Present: atraumatic, normocephalic, normal inspection Eye exam: Present: normal appearance, PERRL, EOMI. Absent: scleral icterus, conjunctival injection, periorbital swelling ENT exam: Present: normal exam, mucous membranes moist Neck exam: Present: normal inspection. Absent: tenderness, meningismus, lymphadenopathy Respiratory exam: Present: normal lung sounds bilaterally. Absent: respiratory distress, wheezes, rales, rhonchi, stridor Cardiovascular Exam: Present: regular rate, normal rhythm, normal heart sounds. Absent: systolic murmur, diastolic murmur, rubs, gallop, clicks GI/Abdominal exam: Present: soft, tenderness (Moderate mid to left-sided), normal bowel sounds. Absent: distended, guarding, rebound, rigid Back exam: Absent: CVA tenderness (R), CVA tenderness (L) Skin exam: Present: warm, dry, intact, normal color. Absent: rash <Alvarez Chamorro - Last Filed: 05/10/20 16:26> Course Vital Signs 05/10/20 14:16 Temperature 98.1 F Pulse Rate 95 Respiratory 16 Rate Blood Pressure 166/88 O2 Sat by Pulse 99 Oximetry Medical Decision Making - Lab Data Result diagrams: 05/10/20 14:54 05/10/20 14:54 <Alvarez Chamorro - Last Filed: 05/10/20 16:26> - Lab Data Result diagrams: 05/13/20 07:02 05/13/20 07:02 <Sharyn Nelson - Last Filed: 05/13/20 22:06> - Medical Decision Making 50-year-old female presented for abdominal pain. CT cannot exclude obstruction. Patient be observed overnight with surgery and GI consult. Patient recommended to have NG tube patient states that she does not want at this time. (Alvarez Chamorro) I was available for consultation in the emergency department. The history and physical exam were done by the midlevel provider. I was consulted for this patients care. I reviewed the case with the midlevel provider and based on their presentation of the patient, I agree with the assessment, medical decision making and plan of care as documented. Chart was dictated using [employer] dictation software. Attempts were made to correct any dictation errors however some typographical errors may persist. Patient was seen during a national state of emergency due to the Covid-19 pandemic. (Sharyn Nelson) - Lab Data Lab Results 05/10/20 05/10/20 05/10/20 Range/Units 14:54 14:54 14:54 WBC 13.2 H (3.8-10.6) k/uL RBC 4.75 (3.80-5.40) m/uL Hgb 15.5 (11.4-16.0) gm/dL Hct 46.5 H (34.0-46.0) % MCV 97.7 (80.0-100.0) fL MCH 32.7 (25.0-35.0) pg MCHC 33.4 (31.0-37.0) g/dL RDW 11.7 (11.5-15.5) % Plt Count 199 (150-450) k/uL Neutrophils % 84 % Lymphocytes % 10 % Monocytes % 4 % Eosinophils % 0 % Basophils % 0 % Neutrophils # 11.1 H (1.3-7.7) k/uL Lymphocytes # 1.3 (1.0-4.8) k/uL Monocytes # 0.6 (0-1.0) k/uL Eosinophils # 0.1 (0-0.7) k/uL Basophils # 0.0 (0-0.2) k/uL Sodium 127 L (137-145) mmol/L Potassium 4.8 (3.5-5.1) mmol/L Chloride 101 (98-107) mmol/L Carbon Dioxide 18 L (22-30) mmol/L Anion Gap 8 mmol/L BUN 10 (7-17) mg/dL Creatinine 0.67 (0.52-1.04) mg/dL Est GFR (CKD-EPI)AfAm >90 (>60 ml/min/1.73 sqM) Est GFR (CKD-EPI)NonAf >90 (>60 ml/min/1.73 sqM) Glucose 95 (74-99) mg/dL Plasma Lactic Acid Aiden (0.7-2.0) mmol/L Calcium 9.2 (8.4-10.2) mg/dL Total Bilirubin 1.0 (0.2-1.3) mg/dL AST 41 H (14-36) U/L ALT 21 (4-34) U/L Alkaline Phosphatase 63 (38-126) U/L Total Protein 7.8 (6.3-8.2) g/dL Albumin 4.4 (3.5-5.0) g/dL Lipase 81 (23-300) U/L Urine Color Light Yellow Urine Appearance Clear (Clear) Urine pH 5.5 (5.0-8.0) Ur Specific [place] 1.005 (1.001-1.035) Urine Protein Negative (Negative) Urine Glucose (UA) Negative (Negative) Urine Ketones Negative (Negative) Urine Blood Negative (Negative) Urine Nitrite Negative (Negative) Urine Bilirubin Negative (Negative) Urine Urobilinogen <2.0 (<2.0) mg/dL Ur Leukocyte Esterase Negative (Negative) 05/10/20 Range/Units 14:54 WBC (3.8-10.6) k/uL RBC (3.80-5.40) m/uL Hgb (11.4-16.0) gm/dL Hct (34.0-46.0) % MCV (80.0-100.0) fL MCH (25.0-35.0) pg MCHC (31.0-37.0) g/dL RDW (11.5-15.5) % Plt Count (150-450) k/uL Neutrophils % % Lymphocytes % % Monocytes % % Eosinophils % % Basophils % % Neutrophils # (1.3-7.7) k/uL Lymphocytes # (1.0-4.8) k/uL Monocytes # (0-1.0) k/uL Eosinophils # (0-0.7) k/uL Basophils # (0-0.2) k/uL Sodium (137-145) mmol/L Potassium (3.5-5.1) mmol/L Chloride (98-107) mmol/L Carbon Dioxide (22-30) mmol/L Anion Gap mmol/L BUN (7-17) mg/dL Creatinine (0.52-1.04) mg/dL Est GFR (CKD-EPI)AfAm (>60 ml/min/1.73 sqM) Est GFR (CKD-EPI)NonAf (>60 ml/min/1.73 sqM) Glucose (74-99) mg/dL Plasma Lactic Acid Aiden 1.1 (0.7-2.0) mmol/L Calcium (8.4-10.2) mg/dL Total Bilirubin (0.2-1.3) mg/dL AST (14-36) U/L ALT (4-34) U/L Alkaline Phosphatase (38-126) U/L Total Protein (6.3-8.2) g/dL Albumin (3.5-5.0) g/dL Lipase (23-300) U/L Urine Color Urine Appearance (Clear) Urine pH (5.0-8.0) Ur Specific [place] (1.001-1.035) Urine Protein (Negative) Urine Glucose (UA) (Negative) Urine Ketones (Negative) Urine Blood (Negative) Urine Nitrite (Negative) Urine Bilirubin (Negative) Urine Urobilinogen (<2.0) mg/dL Ur Leukocyte Esterase (Negative) Disposition <Alvarez Chamorro - Last Filed: 05/10/20 16:26> <Sharyn Nelson - Last Filed: 05/13/20 22:06> Clinical Impression: Small bowel obstruction, Crohn's disease Disposition: ADMITTED IP TO THIS HOSP Condition: Fair
[2020-05-10 15:25] LABS: Appearance,Urine Clear (Clear); Bilirubin,Urine Negative (Negative); Blood,Urine Negative (Negative); Color,Urine Light Yellow; Glucose,Urine (UA) Negative (Negative); Ketones,Urine Negative (Negative); Leukocyte Esterase,Urine Negative (Negative); Nitrite,Urine Negative (Negative); PH, Urine 5.5 (5.0-8.0); Protein,Urine Negative (Negative); Specific Gravity,Urine 1.005 (1.001-1.035); Urobilinogen,Urine <2.0 mg/dL (<2.0)
[2020-05-10 15:26] LABS: Basophils % (A) 0 %; Eosinophils # (A) 0.1 k/uL (0-0.7); Eosinophils % (A) 0 %; HCT 46.5 % (34.0-46.0); HGB 15.5 gm/dL (11.4-16.0); Lymphocytes # (A) 1.3 k/uL (1.0-4.8); Lymphocytes % (A) 10 %; MCH 32.7 pg (25.0-35.0); MCHC 33.4 g/dL (31.0-37.0); MCV 97.7 fL (80.0-100.0); Mean Platelet Volume 10.3; Monocytes # (A) 0.6 k/uL (0-1.0); Monocytes % (A) 4 %; Neutrophils # (A) 11.1 k/uL (1.3-7.7); Neutrophils % (A) 84 %; Platelet Count 199 k/uL (150-450); RBC 4.75 m/uL (3.80-5.40); RDW 11.7 % (11.5-15.5); WBC 13.2 k/uL (3.8-10.6)
[2020-05-10 15:34] LABS: Anion Gap 8 mmol/L; Blood Urea Nitrogen 10 mg/dL (7-17); Carbon Dioxide 18 mmol/L (22-30); Chloride 101 mmol/L (98-107); Glucose 95 mg/dL (74-99); Potassium 4.8 mmol/L (3.5-5.1); Sodium 127 mmol/L (137-145)
[2020-05-10 15:35] LABS: ALT 21 U/L (4-34); AST 41 U/L (14-36); African American GFR (CKD) >90 (>60 ml/min/1.73 sqM); Albumin 4.4 g/dL (3.5-5.0); Alkaline Phosphatase 63 U/L (38-126); Calcium 9.2 mg/dL (8.4-10.2); Lipase 81 U/L (23-300); Non-African American GFR(CKD) >90 (>60 ml/min/1.73 sqM); Total Protein 7.8 g/dL (6.3-8.2)
--- NOTE | 2020-05-10 16:05 | CT ---
EXAMINATION TYPE: CT abdomen pelvis w con DATE OF EXAM: 05/10/2020 COMPARISON: CT 05/03/2019 HISTORY: Mid Abdominal pain with diarrhea. History of colectomy and multiple bowel obstructions CT DLP: 780.9 mGycm Automated exposure control for dose reduction was used. TECHNIQUE: Helical acquisition of images from the lung bases through the pelvis have been completed. CONTRAST: Performed without Oral Contrast and with IV Contrast, patient injected with 100 mL of Isovue 300. FINDINGS: Postop changes are noted to the bowel both in the pelvis and upper abdomen. LUNG BASES: No significant abnormality is appreciated. AORTA: No significant abnormality is appreciated. LIVER/GB: Patient is post cholecystectomy. There are some dilated intrahepatic and extrahepatic bilia ry ducts. PANCREAS: No significant abnormality is seen. SPLEEN: No significant abnormality is seen. ADRENALS: No significant abnormality is seen. KIDNEYS: No significant abnormality is seen. REPRODUCTIVE ORGANS: No significant abnormality is seen BOWEL: Multiple fluid-filled loops of bowel are present with bowel wall thickening. Areas of relativ e narrowing are present within the pelvis with a more proximal distended loop of bowel measuring 7.3 cm in transverse dimension, left hemiabdomen shows distended loop of bowel measuring approximately 6 cm in transverse dimension. May bowel loops show fluid density within the lumen. There is a swirl pre sent of the superior mesenteric vein and superior mesenteric artery, difficult to exclude malrotation . FREE AIR: No Free Air visible. ASCITES: None visible. PELVIC ADENOPATHY: None visualized. RETROPERITONEAL ADENOPATHY: No Retroperitoneal Adenopathy visible. URINARY BLADDER: No significant abnormality is seen. OSSEOUS STRUCTURES: No significant abnormality is seen. IMPRESSION: POSTOP CHANGES. DIFFICULT TO EXCLUDE BOWEL OBSTRUCTION. FLUID DENSITY COURSES THROUGHOUT MANY OF THE BOWEL LOOPS WITHIN THE ABDOMEN, CORRELATE FOR ENTERITIS. Difficult to exclude malrotation.
[2020-05-10] MEDS ORDERED: ONDANSETRON 4 MG/2 ML VIAL IVP PRN (16:29)
[2020-05-10] MEDS ORDERED: HYDROmorphone 0.5 MG/0.5 ML SYRINGE IVP PRN (16:29)
[2020-05-10] MEDS ORDERED: NALOXONE 0.4 MG/ML 1 ML VIAL IV PRN (16:29)
[2020-05-10] MEDS: SODIUM CHLORIDE 0.9% 1,000 ML IV SCH (18:03)
[2020-05-10] MEDS: HYDROmorphone 1 MG/ML 1 ML SYRINGE IVP PRN (23:03)
[2020-05-10] MEDS: ONDANSETRON 4 MG/2 ML VIAL IVP PRN (23:04)
[2020-05-11] MEDS: SODIUM CHLORIDE 0.9% 1,000 ML IV SCH ×3 (02:30→20:44)
[2020-05-11] MEDS: HYDROmorphone 1 MG/ML 1 ML SYRINGE IVP PRN ×7 (03:03→22:58)
[2020-05-11] MEDS: ONDANSETRON 4 MG/2 ML VIAL IVP PRN ×2 (05:03→20:21)
[2020-05-11 08:53] LABS: Basophils % (A) 0 %; Eosinophils # (A) 0.1 k/uL (0-0.7); Eosinophils % (A) 1 %; HCT 41.5 % (34.0-46.0); HGB 13.6 gm/dL (11.4-16.0); Lymphocytes # (A) 0.8 k/uL (1.0-4.8); Lymphocytes % (A) 11 %; MCH 32.7 pg (25.0-35.0); MCHC 32.9 g/dL (31.0-37.0); MCV 99.5 fL (80.0-100.0); Mean Platelet Volume 9.4; Monocytes # (A) 0.4 k/uL (0-1.0); Monocytes % (A) 6 %; Neutrophils # (A) 5.5 k/uL (1.3-7.7); Neutrophils % (A) 80 %; Platelet Count 160 k/uL (150-450); RBC 4.17 m/uL (3.80-5.40); RDW 11.7 % (11.5-15.5); WBC 6.9 k/uL (3.8-10.6)
[2020-05-11 09:13] LABS: African American GFR (CKD) >90 (>60 ml/min/1.73 sqM); Anion Gap 3 mmol/L; Blood Urea Nitrogen 7 mg/dL (7-17); Calcium 8.3 mg/dL (8.4-10.2); Carbon Dioxide 24 mmol/L (22-30); Chloride 108 mmol/L (98-107); Glucose 81 mg/dL (74-99); Non-African American GFR(CKD) >90 (>60 ml/min/1.73 sqM); Potassium 4.4 mmol/L (3.5-5.1); Sodium 135 mmol/L (137-145)
--- NOTE | 2020-05-11 09:17 | P.GSCN ---
History of Present Illness Consult date: 05/11/20 Reason for Consult: Abdominal pain History of present illness: This a 50-year-old female who presented through the emergency room with complain ts of crampy abdominal pain. Patient history of Crohn disease. She currently sees Dr. Hernandez. She is receiving Remicade every 8 weeks. She's had previous endoscopy and dilatation by Dr. Hernandez. Patient states that she is passing flatus currently and has had some small bowel movements. She'll she feels better than she did last night. Past Medical History Past Medical History: Hypertension Additional Past Medical History / Comment(s): chron's, bowel obstruction History of Any Multi-Drug Resistant Organisms: None Reported Past Surgical History: Back Surgery, Bowel Resection, Section, Cholecystectomy, Hysterectomy Additional Past Surgical History / Comment(s): COLONOSCOPY, colostomy with reversal Past Anesthesia/Blood Transfusion Reactions: No Reported Reaction Past Psychological History: Anxiety Smoking Status: Current every day smoker Past Alcohol Use History: Occasional Additional Past Alcohol Use History / Comment(s): SMOKES 2 CIGARS DAILY-SINCE AGE 15 Past Drug Use History: None Reported - Past Family History Mother Family Medical History: No Reported History Medications and Allergies Home Medications Medication Instructions Recorded Confirmed Type Citalopram Hydrobromide [CeleXA] 40 mg PO DAILY 05/03/19 05/10/20 History Ibuprofen [Motrin Ib] 800 mg PO ONCE PRN 05/03/19 05/10/20 History amLODIPine [Norvasc] 10 mg PO HS 09/19/19 05/10/20 History Acetaminophen [Tylenol Arthritis] 650 mg PO ONCE PRN 05/10/20 05/10/20 History Albuterol Sulfate [Proair Hfa] 2 puff INHALATION RT-Q4H PRN 05/10/20 05/10/20 History LORazepam [Ativan] 0.5 mg PO Q12HR PRN 05/10/20 05/10/20 History Levocetirizine Dihydrochloride 5 mg PO DAILY 05/10/20 05/10/20 History [Xyzal] Montelukast [Singulair] 10 mg PO DAILY 05/10/20 05/10/20 History Olopatadine HCl [Patanol] 1 drop BOTH EYES DAILY 05/10/20 05/10/20 History inFLIXimab [Remicade] 100 mg IVPB Q56D 05/10/20 05/10/20 History traZODone HCL [Desyrel] 100 mg PO HS 05/10/20 05/10/20 History Allergies Allergy/AdvReac Type Severity Reaction Status Date / Time Cephalosporins Allergy Rash/Hives Verified 05/10/20 15:53 codeine Allergy Dyspnea Verified 05/10/20 15:53 meperidine [From Demerol] Allergy Unknown Verified 05/10/20 15:53 morphine Allergy Unknown Verified 05/10/20 15:53 Penicillins Allergy Rash/Hives Verified 05/10/20 15:53 Sulfa (Sulfonamide Allergy Unknown Verified 05/10/20 15:53 Antibiotics) Surgical - Exam Vital Signs Temp Pulse Resp BP Pulse Ox 98.1 F 95 16 166/88 99 05/10/20 14:16 05/10/20 14:16 05/10/20 14:16 05/10/20 14:16 05/10/20 14:16 - General well developed, well nourished - Eyes PERRL - ENT normal pinna - Neck no masses - Respiratory normal expansion - Cardiovascular Rhythm: regular - Abdomen Abdomen: soft, non tender Results - Labs 05/11/20 08:39 05/11/20 08:39 Abnormal Lab Results - Last 24 Hours (Table) 05/10/20 05/10/20 05/11/20 Range/Units 14:54 14:54 08:39 WBC 13.2 H (3.8-10.6) k/uL Hct 46.5 H (34.0-46.0) % Neutrophils # 11.1 H (1.3-7.7) k/uL Lymphocytes # 0.8 L (1.0-4.8) k/uL Sodium 127 L (137-145) mmol/L Chloride (98-107) mmol/L Carbon Dioxide 18 L (22-30) mmol/L Calcium (8.4-10.2) mg/dL AST 41 H (14-36) U/L 05/11/20 Range/Units 08:39 WBC (3.8-10.6) k/uL Hct (34.0-46.0) % Neutrophils # (1.3-7.7) k/uL Lymphocytes # (1.0-4.8) k/uL Sodium 135 L (137-145) mmol/L Chloride 108 H (98-107) mmol/L Carbon Dioxide (22-30) mmol/L Calcium 8.3 L (8.4-10.2) mg/dL AST (14-36) U/L Diabetes panel 05/10/20 05/11/20 Range/Units 14:54 08:39 Sodium 127 L 135 L (137-145) mmol/L Potassium 4.8 4.4 (3.5-5.1) mmol/L Chloride 101 108 H (98-107) mmol/L Carbon Dioxide 18 L 24 (22-30) mmol/L BUN 10 7 (7-17) mg/dL Creatinine 0.67 0.72 (0.52-1.04) mg/dL Glucose 95 81 (74-99) mg/dL Calcium 9.2 8.3 L (8.4-10.2) mg/dL AST 41 H (14-36) U/L ALT 21 (4-34) U/L Alkaline Phosphatase 63 (38-126) U/L Total Protein 7.8 (6.3-8.2) g/dL Albumin 4.4 (3.5-5.0) g/dL Calcium panel 05/10/20 05/11/20 Range/Units 14:54 08:39 Calcium 9.2 8.3 L (8.4-10.2) mg/dL Albumin 4.4 (3.5-5.0) g/dL Pituitary panel 05/10/20 05/11/20 Range/Units 14:54 08:39 Sodium 127 L 135 L (137-145) mmol/L Potassium 4.8 4.4 (3.5-5.1) mmol/L Chloride 101 108 H (98-107) mmol/L Carbon Dioxide 18 L 24 (22-30) mmol/L BUN 10 7 (7-17) mg/dL Creatinine 0.67 0.72 (0.52-1.04) mg/dL Glucose 95 81 (74-99) mg/dL Calcium 9.2 8.3 L (8.4-10.2) mg/dL Adrenal panel 05/10/20 05/11/20 Range/Units 14:54 08:39 Sodium 127 L 135 L (137-145) mmol/L Potassium 4.8 4.4 (3.5-5.1) mmol/L Chloride 101 108 H (98-107) mmol/L Carbon Dioxide 18 L 24 (22-30) mmol/L BUN 10 7 (7-17) mg/dL Creatinine 0.67 0.72 (0.52-1.04) mg/dL Glucose 95 81 (74-99) mg/dL Calcium 9.2 8.3 L (8.4-10.2) mg/dL Total Bilirubin 1.0 (0.2-1.3) mg/dL AST 41 H (14-36) U/L ALT 21 (4-34) U/L Alkaline Phosphatase 63 (38-126) U/L Total Protein 7.8 (6.3-8.2) g/dL Albumin 4.4 (3.5-5.0) g/dL - Imaging CT scan - abdomen: report reviewed (Multiple fluid filled loops of bowel. There is bowel wall thickening.) Assessment and Plan Assessment: Past patient of Crohn's. Patient will receive bowel rest she'll be observed. Once her bowel function returns we will increase her diet. We'll await GI evaluation.
[2020-05-11 09:26] LABS: C Reactive Protein 16.3 mg/L (<10.0)
[2020-05-11] MEDS ORDERED: ALBUTEROL NEBULIZED 2.5 MG/3 ML INHALATION PRN (10:58)
[2020-05-11] MEDS ORDERED: IBUPROFEN 800 MG TAB PO PRN (10:58)
[2020-05-11 11:04] LABS: Erythrocyte Sedimentation Rate 7 mm/hr (0-20)
--- NOTE | 2020-05-11 11:20 | P.HPIM ---
History of Present Illness This is a pleasant 50 years old female with past medical history of Crohn's disease on inmfliximab, hypertension. Also she has history of anxiety and every day smoker. Presents because of abdominal pain of 2 days' duration, with crampy pain in the lower abdomen, nonradiating felt like 7/10 in severity with no nausea vomiting, associated with constipation but she is having loose bowel movement currently Patient wants to increase her pain medication Vitals are stable, labs were unremarkable including CBC, BMP, liver enzymes and urine analysis, lipase is normal at 81, She has mild hyponatremia sodium went up from [address] of the abdomen and pelvis: Postoperative changes, possible to exclude bowel obstruction with multiple fluid-filled loops of the bowel and bowel wall thickening, correlate for colitis Review of Systems CONSTITUTIONAL: No fever, no malaise, no fatigue. HEENT: No recent visual problems or hearing problems. Denied any sore throat. CARDIOVASCULAR: No orthopnea, PND, no palpitations, no syncope. PULMONARY: No shortness of breath, no cough, no hemoptysis. GASTROINTESTINAL: No diarrhea, no nausea, no vomiting. Normoactive bowel sounds. NEUROLOGICAL: No headaches, no weakness, no numbness. HEMATOLOGICAL: Denies any bleeding or petechiae. GENITOURINARY: Denies any burning micturition, frequency, or urgency. MUSCULOSKELETAL/RHEUMATOLOGICAL: Denies any joint pain, swelling, or any muscle pain. ENDOCRINE: Denies any polyuria or polydipsia. Past Medical History Past Medical History: Hypertension Additional Past Medical History / Comment(s): chron's, bowel obstruction History of Any Multi-Drug Resistant Organisms: None Reported Past Surgical History: Back Surgery, Bowel Resection, Section, Cholecystectomy, Hysterectomy Additional Past Surgical History / Comment(s): COLONOSCOPY, colostomy with rev ersal Past Anesthesia/Blood Transfusion Reactions: No Reported Reaction Past Psychological History: Anxiety Smoking Status: Current every day smoker Past Alcohol Use History: Occasional Additional Past Alcohol Use History / Comment(s): SMOKES 2 CIGARS DAILY-SINCE AGE 15 Past Drug Use History: None Reported - Past Family History Mother Family Medical History: No Reported History Medications and Allergies Home Medications Medication Instructions Recorded Confirmed Type Citalopram Hydrobromide [CeleXA] 40 mg PO DAILY 05/03/19 05/10/20 History Ibuprofen [Motrin Ib] 800 mg PO ONCE PRN 05/03/19 05/10/20 History amLODIPine [Norvasc] 10 mg PO HS 09/19/19 05/10/20 History Acetaminophen [Tylenol Arthritis] 650 mg PO ONCE PRN 05/10/20 05/10/20 History Albuterol Sulfate [Proair Hfa] 2 puff INHALATION RT-Q4H PRN 05/10/20 05/10/20 History LORazepam [Ativan] 0.5 mg PO Q12HR PRN 05/10/20 05/10/20 History Levocetirizine Dihydrochloride 5 mg PO DAILY 05/10/20 05/10/20 History [Xyzal] Montelukast [Singulair] 10 mg PO DAILY 05/10/20 05/10/20 History Olopatadine HCl [Patanol] 1 drop BOTH EYES DAILY 05/10/20 05/10/20 History inFLIXimab [Remicade] 100 mg IVPB Q56D 05/10/20 05/10/20 History traZODone HCL [Desyrel] 100 mg PO HS 05/10/20 05/10/20 History Allergies Allergy/AdvReac Type Severity Reaction Status Date / Time Cephalosporins Allergy Rash/Hives Verified 05/10/20 15:53 codeine Allergy Dyspnea Verified 05/10/20 15:53 meperidine [From Demerol] Allergy Unknown Verified 05/10/20 15:53 morphine Allergy Unknown Verified 05/10/20 15:53 Penicillins Allergy Rash/Hives Verified 05/10/20 15:53 Sulfa (Sulfonamide Allergy Unknown Verified 05/10/20 15:53 Antibiotics) Physical Exam Vitals: Vital Signs Temp Pulse Pulse Resp BP BP Pulse Ox 05/11/20 08:00 73 16 05/11/20 05:00 97.4 F L 73 16 116/62 96 05/11/20 00:10 18 05/10/20 20:00 98.1 F 69 18 118/74 95 05/10/20 17:55 97.5 F L 69 15 150/80 97 05/10/20 17:18 98 F 77 18 134/79 96 05/10/20 14:16 98.1 F 95 16 166/88 99 Intake and Output 05/10/20 05/11/20 05/11/20 22:59 06:59 14:59 Intake Total 300 800 Balance 300 800 Intake: Intake, IV Titration 300 800 Amount Sodium Chloride 0.9% 1, 300 800 000 ml @ 100 mls/hr IV . Q10H [facility] Rx#:[id number] Other: Voiding Method Toilet Toilet # Voids 1 3 Weight 62.596 kg GENERAL: The patient is alert and oriented x3, not in any acute distress. Well developed, well nourished. HEENT: Pupils are round and equally reacting to light. EOMI. No scleral icterus. No conjunctival pallor. Normocephalic, atraumatic. No pharyngeal erythema. No thyromegaly. CARDIOVASCULAR: S1 and S2 present. No murmurs, rubs, or gallops. PULMONARY: Chest is clear to auscultation, no wheezing or crackles. -ABDOMEN: Soft, lower abdominal tenderness, nondistended, normoactive bowel sounds. No palpable organomegaly. MUSCULOSKELETAL: No joint swelling or deformity. EXTREMITIES: No cyanosis, clubbing, or pedal edema. NEUROLOGICAL: Gross neurological examination did not reveal any focal deficits. SKIN: No rashes. No petechiae Results CBC & Chem 7: 05/11/20 08:39 05/11/20 08:39 Labs: Abnormal Lab Results - Last 24 Hours (Table) 05/10/20 05/10/20 05/11/20 Range/Units 14:54 14:54 08:39 WBC 13.2 H (3.8-10.6) k/uL Hct 46.5 H (34.0-46.0) % Neutrophils # 11.1 H (1.3-7.7) k/uL Lymphocytes # 0.8 L (1.0-4.8) k/uL Sodium 127 L (137-145) mmol/L Chloride (98-107) mmol/L Carbon Dioxide 18 L (22-30) mmol/L Calcium (8.4-10.2) mg/dL AST 41 H (14-36) U/L C-Reactive Protein (<10.0) mg/L 05/11/20 Range/Units 08:39 WBC (3.8-10.6) k/uL Hct (34.0-46.0) % Neutrophils # (1.3-7.7) k/uL Lymphocytes # (1.0-4.8) k/uL Sodium 135 L (137-145) mmol/L Chloride 108 H (98-107) mmol/L Carbon Dioxide (22-30) mmol/L Calcium 8.3 L (8.4-10.2) mg/dL AST (14-36) U/L C-Reactive Protein 16.3 H (<10.0) mg/L Thrombosis Risk Factor Assmnt - Choose All That Apply Each Factor Represents 1 point: Age 41-60 years Other Risk Factors: No Other congenital or acquired thrombophilia - If yes, enter type in comment: No Thrombosis Risk Factor Assessment Total Risk Factor Score: 1 Thrombosis Risk Factor Assessment Level: Low Risk Assessment and Plan Assessment: Small bowel obstruction Crohn's disease with possible acute exacerbation hypovolemic hyponatremia, improving Nicotine dependence History of Crohn's disease Hypertension Anxiety, not in estimation Plan: this is a pleasant 50 years old female who presents with small bowel obstructio n, continue with bowel rest, IV fluid. Medication, surgery and GI consult. As per surgery team recommendations patient can be nothing by mouth except medications. We'll increase pain medication to every 3 hours, but I would recommend to start decreasing frequency and strength of pain medication from tomorrow Check ESR and C-reactive protein and follow-up with GI team Labs and medication were reviewed.. Continue same treatment. Continue with symptomatic treatment. Resume home medication. Monitor lytes and vitals. DVT and GI prophylaxis. Further recommendations depends on the clinical course of the patient DVT prophylaxis: Subcutaneous heparin GI Prophylaxis: Pepcid
[2020-05-11] MEDS: LORazepam 0.5 MG TAB PO PRN ×2 (11:22→20:40)
[2020-05-11] MEDS: CITALOPRAM HYDROBROMIDE 20 MG TAB PO SCH (11:22)
[2020-05-11] MEDS: methylPREDNISolone SOD SUCCI 40 MG/ML 1 ML VIAL IV SCH ×2 (16:08→23:23)
--- NOTE | 2020-05-11 16:48 | CONS ---
CONSULTATION DATE OF DICTATION: 05/11/2020 REASON FOR CONSULTATION: Abdominal pain. HISTORY OF PRESENT ILLNESS: The patient is a 50-year-old pleasant white female with history of Crohn's disease diagnosed at age 20. She is status post subtotal colectomy with ileostomy in the beginning that was subsequently reversed. 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 She underwent a flexible sigmoidoscopy with dilation of the anastomotic stricture at that time. The patient was recently started on Remicade infusions in December of this year and she finished about 5 infusions so far. The last one was April 08. She started developing abdominal distention and constipation for the last 3 or 4 days' duration. She tried to take MiraLAX, with no help. The symptoms continued to progressively get worse. She hence came to the emergency room and subsequently was admitted to the hospital for further evaluation. She did have a CT of the abdomen and pelvis done in the emergency room last night that showed postoperative changes; difficult to exclude bowel obstruction, but there were multiple fluid-filled loops of bowel present in the proximal bowel. She was started on IV Solu-Medrol 20 mg q.8 hours. She is feeling a little bit better today. She denies any fever, chills, night sweats. PAST MEDICAL HISTORY: Her past medical history is significant for Crohn's disease diagnosed at age 26, history of anxiety, hypertension. MEDICATIONS: Medications at home include Celexa, Motrin, Norvasc, Tylenol Arthritis, ProAir, Ativan, Remicade infusions, Singulair and Xyzal. ALLERGIES: DEMEROL, MORPHINE, PENICILLIN, SULFA, CODEINE, CEPHALOSPORINS. PAST SURGICAL HISTORY: Back surgery, total subtotal colectomy with ileorectal anastomosis, , cholecystectomy, hysterectomy and colonoscopy 6 months ago. FAMILY HISTORY: Mother and father healthy. REVIEW OF SYSTEMS: CARDIOPULMONARY: No chest pain or shortness of breath. GENITOURINARY: No dysuria or hematuria. MUSCULOSKELETAL: Unremarkable. SKIN: Unremarkable. ENDOCRINE: Unremarkable. PSYCHIATRIC: Unremarkable. NEUROLOGY: Unremarkable. ENT/VISION: Unremarkable. GI: As mentioned above. CONSTITUTIONAL: No recent weight loss. No fever, chills, night sweats. PHYSICAL EXAMINATION: Blood pressure is 133/65, pulse rate 77, temperature 98.2. HEENT examination unremarkable. Conjunctivae pink. Sclerae anicteric. Oral cavity no lesions. NECK: No JVD or lymph node enlargement. CHEST: Clear to auscultation. HEART: Regular rate and rhythm. ABDOMEN: Soft. It was slightly distended. It was tender diffusely all over the abdomen. No rebound or rigidity. EXTREMITIES: No pedal edema. SKIN: No rashes. NEUROLOGIC: Alert and oriented x3. No focal deficits. LABS: WBC 13.2, hemoglobin 15.5, platelets normal. Basic metabolic panel shows sodium 127, BUN and creatinine normal. Rest of the labs are within normal limits. ALT and AST 41 and 21, respectively. T-bilirubin and alkaline phosphatase are normal. IMPRESSION: Diffuse abdominal pain with constipation for the last 2-3 days' duration. Patient with longstanding history of Crohn's disease with stricture at the ileorectal anastomosis. Her last flexible sigmoidoscopy, performed in September of 2019, showed a severe ileorectal anastomotic stricture that was dilated using 12-15 mm TTS balloon at that time. She was subsequently started on Remicade infusions about 5 months ago and now presents with abdominal pain and partial small bowel obstruction, most likely related to tight anastomotic stricture. RECOMMENDATIONS: 1. Start her on IV Solu-Medrol 20 mg q.8 hours. 2. Start clear liquid diet. 3. MiraLAX as needed. 4. Will re-evaluate her in the morning. 5. Monitor labs closely. 6. Will follow with you. Thank you for this consultation. MMODL / IJN: [id number] /
[2020-05-11] MEDS: FAMOTIDINE 20 MG/2 ML VIAL IV SCH (20:26)
[2020-05-11] MEDS: HEPARIN SODIUM,PORCINE 5,000 UNIT/ML 1 ML VIAL SQ SCH (21:16)
[2020-05-11] MEDS: LORATADINE 10 MG TAB PO SCH (21:19)
[2020-05-11] MEDS: amLODIPine 5 MG TAB PO SCH (21:20)
[2020-05-11] MEDS: diphenhydrAMINE 25 MG CAP PO PRN (23:04)
[2020-05-11] MEDS ORDERED: PROMETHAZINE INJ 6.25 MG in SODIUM CHLORIDE 0.9% 50 ML IVPB PRN (23:30)
[2020-05-12] MEDS ORDERED: TRIMETHOBENZAMIDE 100 MG/ML 2 ML VIAL IM PRN
[2020-05-12] MEDS ORDERED: TRIMETHOBENZAMIDE 300 MG CAP PO PRN
[2020-05-12] MEDS: ONDANSETRON 4 MG/2 ML VIAL IVP PRN ×4 (01:51→20:09)
[2020-05-12] MEDS: HYDROmorphone 1 MG/ML 1 ML SYRINGE IVP PRN ×8 (01:53→23:14)
[2020-05-12] MEDS: methylPREDNISolone SOD SUCCI 40 MG/ML 1 ML VIAL IV SCH ×3 (08:24→23:15)
[2020-05-12] MEDS: LORATADINE 10 MG TAB PO SCH (08:31)
[2020-05-12] MEDS: FAMOTIDINE 20 MG/2 ML VIAL IV SCH ×2 (08:34→20:17)
[2020-05-12] MEDS: LORazepam 0.5 MG TAB PO PRN ×2 (08:35→20:18)
[2020-05-12] MEDS: HEPARIN SODIUM,PORCINE 5,000 UNIT/ML 1 ML VIAL SQ SCH ×2 (08:36→21:22)
[2020-05-12] MEDS: MONTELUKAST 10 MG TAB PO SCH (08:36)
[2020-05-12] MEDS: CITALOPRAM HYDROBROMIDE 20 MG TAB PO SCH (08:51)
[2020-05-12] MEDS ORDERED: CITALOPRAM HYDROBROMIDE 20 MG TAB PO SCH (09:00)
--- NOTE | 2020-05-12 12:43 | PN ---
PROGRESS NOTE DATE OF SERVICE: 05/12/2020 Patient is a 50-year-old pleasant white female admitted to the hospital with abdominal pain and constipation and possible small bowel obstruction secondary to stricture at the ileorectal anastomosis. The patient was started on IV Solu-Medrol 20 mg q.8 hours. She is feeling better today. Abdominal distention is improved. Abdominal pain has improved. She had 2 liquid bowel movements thru night and one this morning. Overall, she is feeling better. No fever, chills, or night sweats. No nausea, vomiting. On a clear liquid diet, tolerating well. PHYSICAL EXAMINATION: Appears comfortable. No apparent distress. Vital signs stable. Blood pressure 130/73, pulse rate 64, temperature 97.6. HEENT examination unremarkable. Conjunctivae pink. Sclerae anicteric. Oral cavity no lesions. NECK: No JVD. No lymph node enlargement. CHEST was clear to auscultation. HEART: Regular rate and rhythm. ABDOMEN: Soft. Bowel sounds are positive. Very minimal tenderness in the left lower quadrant area. EXTREMITIES: No pedal edema. SKIN no rashes. NEUROLOGIC: Alert and oriented x3. No focal deficits. LABS: Labs done today study: No labs available from today. CRP yesterday was 16.3. IMPRESSION: Small bowel obstruction secondary to stricture at the ileorectal anastomosis. Patient with history of Crohn's disease status post total proctocolectomy with ileorectal anastomosis several years ago. She had a similar hospitalization a year ago, which resolved with IV steroids and she underwent a flexible sigmoidoscopy with dilation at that time. She has been maintained on Remicade infusions since December of this year. Her last Remicade was 6 weeks ago. Currently on IV Solu-Medrol 20 mg q.8 hours and symptoms are gradually improving. RECOMMENDATIONS: 1. Continue with IV Solu-Medrol 20 mg q.8 hours today. 2. Advance to full liquid diet. 3. If her symptoms improve we will switch her steroids to oral prednisone tomorrow and she can be discharged home with outpatient followup in 2 weeks. The plan was discussed with the patient. She is agreeable to it. Thank you for this consultation. MMODL / IJN: [id number] /
--- NOTE | 2020-05-12 15:27 | P.PN ---
Subjective Progress Note Date: 05/12/20 CHIEF COMPLAINT: Crohn's flareup HISTORY OF PRESENT ILLNESS: The patient is a 50-year-old female pre-existing of Crohn's disease including multiple abdominal surgeries who presented with bowel obstruction. Abdominal pain has improved. She is being managed and followed by gastroenterology. She is passing flatus. Her abdominal distension is improving. She is having bowel movements. She tolerated liquid diet. ROS: No reports of nausea and vomiting. No bowel movements. No fevers or chills. No new chest pain. No productive sputum PHYSICAL EXAM: VITAL SIGNS: Reviewed CONSTITUTIONAL: Well developed and in no acute distress. EYES: Conjuctivae without sclera icterus. Extraocular movements grossly intact. HEAD, EARS, NOSE, THROAT: Moist buccal mucosa. Head is atraumatic, normocephalic. Hears conversational speech. No nasal drainage. NECK: Supple. No thyroidomegaly. RESPIRATORY: Non-labored respirations and equal bilateral excursions. CARDIOVASCULAR: Palpable 2+ radial pulses. Regular rate. Regular rhythm. ABDOMEN: No peritonitis. MUSCULOSKELETAL: No gross deformity of the lower extremities noted. No clubbing. No cyanosis. SKIN: Good skin turgor. Well perfused. NEUROLOGIC: Cranial nerves II through XII grossly intact. No focal or lateralizing signs. PSYCH: Appropriate affect. Alert and oriented to person, place and time. STUDIES: CT of the abdomen and pelvis and appendix reviewed demonstrating stricture along the small bowel with moderate small bowel dilation and anastomotic changes of previous enterectomy. This is my independent interpretation. CLINICAL LABS: White blood cell count normal 6.9 down from 13.2. ASSESSMENT: 1. Crohn's disease with bowel obstruction PLAN: 1. Continue medical management regarding Crohn's disease. 2. Advance diet per GI 3. No acute surgical intervention. Objective - Vital Signs Vital signs: Vital Signs Temp 98.5 F 05/12/20 12:08 Pulse 74 05/12/20 12:08 Resp 16 05/12/20 12:08 BP 113/62 05/12/20 12:08 Pulse Ox 97 05/12/20 08:14 Intake & Output 05/11/20 05/12/20 05/12/20 18:59 06:59 18:59 Intake Total 838 Balance 838 Intake: Oral 838 Other: Voiding Method Toilet Toilet # Voids 2 2 1 # Bowel Movements 0 1 - Labs CBC & Chem 7: 05/11/20 08:39 05/11/20 08:39 Labs: Abnormal Lab Results - Last 24 Hours (Table) 05/12/20 Range/Units 06:27 C-Reactive Protein 24.1 H (<10.0) mg/L Assessment and Plan (1) Crohn's disease Current Visit: Yes Status: Acute Code(s): K50.90 - CROHN'S DISEASE, UNSPECIFIED, WITHOUT COMPLICATIONS SNOMED Code(s): 12179029 (2) Small bowel obstruction Current Visit: Yes Status: Acute Code(s): K56.609 - UNSP INTESTNL OBST, UNSP TO PARTIAL VERSUS COMPLETE OBST SNOMED Code(s): 225281275
[2020-05-12] MEDS: SODIUM CHLORIDE 0.9% 1,000 ML IV SCH ×2 (16:00→16:15)
[2020-05-12] MEDS: amLODIPine 5 MG TAB PO SCH (20:17)
[2020-05-12] MEDS: diphenhydrAMINE 25 MG CAP PO PRN (23:13)
[2020-05-13] MEDS: HYDROmorphone 1 MG/ML 1 ML SYRINGE IVP PRN ×3 (01:02→08:40)
[2020-05-13] MEDS: ONDANSETRON 4 MG/2 ML VIAL IVP PRN ×2 (01:03→08:22)
[2020-05-13] MEDS: SODIUM CHLORIDE 0.9% 1,000 ML IV SCH (02:00)
[2020-05-13 07:25] LABS: Basophils % (A) 0 %; Eosinophils % (A) 0 %; HCT 37.1 % (34.0-46.0); HGB 12.1 gm/dL (11.4-16.0); Lymphocytes # (A) 1.1 k/uL (1.0-4.8); Lymphocytes % (A) 15 %; MCH 32.8 pg (25.0-35.0); MCHC 32.7 g/dL (31.0-37.0); MCV 100.4 fL (80.0-100.0); Mean Platelet Volume 10.2; Monocytes # (A) 0.4 k/uL (0-1.0); Monocytes % (A) 6 %; Neutrophils # (A) 5.7 k/uL (1.3-7.7); Neutrophils % (A) 76 %; Platelet Count 183 k/uL (150-450); RDW 11.8 % (11.5-15.5); WBC 7.5 k/uL (3.8-10.6)
[2020-05-13 07:30] LABS: African American GFR (CKD) >90 (>60 ml/min/1.73 sqM); Anion Gap 0 mmol/L; Blood Urea Nitrogen 4 mg/dL (7-17); Calcium 8.4 mg/dL (8.4-10.2); Carbon Dioxide 30 mmol/L (22-30); Chloride 110 mmol/L (98-107); Glucose 111 mg/dL (74-99); Non-African American GFR(CKD) >90 (>60 ml/min/1.73 sqM); Potassium 4.6 mmol/L (3.5-5.1); Sodium 140 mmol/L (137-145)
[2020-05-13 08:07] VITALS: RESP 18
[2020-05-13] MEDS: methylPREDNISolone SOD SUCCI 40 MG/ML 1 ML VIAL IV SCH (08:08)
[2020-05-13] MEDS: LORATADINE 10 MG TAB PO SCH (08:19)
[2020-05-13] MEDS: CITALOPRAM HYDROBROMIDE 20 MG TAB PO SCH (08:19)
[2020-05-13] MEDS: LORazepam 0.5 MG TAB PO PRN (08:22)
[2020-05-13] MEDS: HEPARIN SODIUM,PORCINE 5,000 UNIT/ML 1 ML VIAL SQ SCH (08:34)
[2020-05-13] MEDS: MONTELUKAST 10 MG TAB PO SCH (08:34)
[2020-05-13] MEDS ORDERED: FAMOTIDINE 20 MG TAB PO SCH (09:00)
[2020-05-13] MEDS ORDERED: predniSONE 20 MG TAB PO SCH (09:45)
--- NOTE | 2020-05-13 10:04 | PN ---
PROGRESS NOTE DATE OF SERVICE: 05/13/2020 The patient is a 50-year-old pleasant white female admitted to the hospital with small- bowel obstruction secondary to stricture at the ileorectal anastomosis. The patient was started on IV Solu-Medrol. She is doing much better. She had 5 or 6 bowel movements yesterday. Abdominal pain has improved. No nausea, no vomiting. On a regular diet, tolerating well. PHYSICAL EXAMINATION: She appears comfortable. No apparent distress. VITAL SIGNS: Stable. Blood pressure is 130/86, pulse rate 82 per minute and afebrile. HEENT: Examination unremarkable. Conjunctivae pink. Sclerae anicteric. Oral cavity no lesions. NECK: No JVD. No lymph node enlargement. CHEST: Clear to auscultation. HEART: Regular rate and rhythm. ABDOMEN: Soft, bowel sounds are positive. No organomegaly. EXTREMITIES: No pedal edema. SKIN: No rashes. NEURO: She is alert and oriented x3. No focal deficits. LABS: From today WBC 7.5, hemoglobin 12.1, platelets normal. Basic metabolic panel is within normal limits. BUN 4, creatinine 0.61. IMPRESSION: 1. Partial small-bowel obstruction secondary to stricture at the ileorectal anastomosis. The patient is on IV Solu-Medrol 20 mg q.8 hours. Symptoms improved. She is doing well, tolerating regular diet. Has been maintained on Remicade infusions for the last 6 months. 2. History of Crohn's colitis status post total proctocolectomy with ileorectal anastomosis several years ago. RECOMMENDATIONS: 1. Discontinue IV Solu-Medrol. 2. Start prednisone 40 mg daily. Advised to continue prednisone 40 mg daily for a week and taper it by 10 mg every week. 3. Follow up in office in 2 weeks. Thank you for this consultation. MMODL / IJN: [id number] /
[2020-05-13] MEDS ORDERED: IBUPROFEN 800 MG TAB PO PRN (12:19)
[2020-05-13 12:22] VITALS: BP 142/76; PULSE 70; TEMP 98.5
--- NOTE | 2020-05-29 21:57 | P.PN ---
Subjective Progress Note Date: 05/12/20 Principal diagnosis: Small bowel obstruction Ms. Varela is a pleasant 50 years old female with past medical history of Crohn's disease on inmfliximab, hypertension. Also she has history of anxiety and every day smoker. Presents because of abdominal pain of 2 days' duration, with crampy pain in the lower abdomen, nonradiating felt like 7/10 in severity with no nausea vomiting, associated with constipation but she is having loose bowel movement currently Patient wants to increase her pain medication Vitals are stable, labs were unremarkable including CBC, BMP, liver enzymes and urine analysis, lipase is normal at 81, She has mild hyponatremia sodium went up from [address] of the abdomen and pelvis: Postoperative changes, possible to exclude bowel obstruction with multiple fluid-filled loops of the bowel and bowel wall thickening, correlate for colitis. On 05/12/2020 - Pt states that her abdominal pain is better and no more diarrhea. She denies having nay fever, SOB, chest pain or palpitations. No dysuria or hematuria. Vitals and labs reviewed. She states her pain is marginally controlled. Objective - Vital Signs Vital signs: Vital Signs Temp 98.5 F 05/12/20 12:08 Pulse 74 05/12/20 12:08 Resp 16 05/12/20 12:08 BP 113/62 05/12/20 12:08 Pulse Ox 97 05/12/20 08:14 Intake & Output 05/11/20 05/12/20 05/12/20 18:59 06:59 18:59 Intake Total 838 Balance 838 Intake: Oral 838 Other: Voiding Method Toilet Toilet # Voids 2 2 1 # Bowel Movements 0 1 - Exam PHYSICAL EXAM: CONSTITUTIONAL: Well developed and in no acute distress. HEENT : No pallor, no icterus RESPIRATORY: Non-labored respirations and equal bilateral excursions. CARDIOVASCULAR: Regular rate. Regular rhythm. ABDOMEN: soft , non tender , Normal Bowel sounds EXTREMITIES : No gross deformity of the lower extremities noted. No clubbing. No cyanosis. NEUROLOGIC: No focal or lateralizing signs. PSYCH: alert and oriented to person, place and time. - Labs CBC & Chem 7: 05/13/20 07:02 05/13/20 07:02 Labs: Abnormal Lab Results - Last 24 Hours (Table) 10/31/20 Range/Units 06:27 C-Reactive Protein 24.1 H (<10.0) mg/L Assessment and Plan Assessment: ASSESSMENT Small bowel obstruction Crohn's disease with possible acute exacerbation hypovolemic hyponatremia, improving Nicotine dependence History of Crohn's disease Hypertension Anxiety, not in estimation PLAN: Pt to be continued on steriods . C .diff is negative. Her symptoms are improving gradually. Continue with the same regimen. Surgery and GI following closely. Discussed the plan in detail with her at bed side today.
--- NOTE | 2020-05-29 22:05 | P.DS ---
Providers Date of admission: 05/10/20 16:28 Expected date of discharge: 05/13/20 Attending physician: Bobbi Berrios Consults: 05/10/20 16:30 Consult Physician Urgent Consulting Provider: Vijaya Russell Consult Reason/Comments: Small bowel obstruction, Crohn's, established patient Do you want consulting provider notified?: Yes 05/11/20 10:56 Consult Physician Routine Consulting Provider: Paddy Harris Consult Reason/Comments: SBO Do you want consulting provider notified?: Already Contacted Primary care physician: Akil Ramirez MD Hospital Course: Small bowel obstruction Ms. Varela is a pleasant 50 years old female with past medical history of Crohn's disease on inmfliximab, hypertension. Also she has history of anxiety and every day smoker. Presents because of abdominal pain of 2 days' duration, with crampy pain in the lower abdomen, nonradiating felt like 7/10 in severity with no nausea vomiting, associated with constipation but she is having loose bowel movement currently Patient wants to increase her pain medication Vitals are stable, labs were unremarkable including CBC, BMP, liver enzymes and urine analysis, lipase is normal at 81, She has mild hyponatremia sodium went up from [address] of the abdomen and pelvis: Postoperative changes, possible to exclude bowel obstruction with multiple fluid-filled loops of the bowel and bowel wall t hickening, correlate for colitis. Hospital course- c. diff was negative. She received IV steroids and her symptoms improved. Gen surgery and GI followed the patient. She was able to tolerate food by mouth and so being discharged home with a tapering dose of steroids. DISCHARGE DIAGNOSIS Small bowel obstruction Crohn's disease with possible acute exacerbation hypovolemic hyponatremia, improving Nicotine dependence History of Crohn's disease Hypertension Anxiety Follow up - Advised follow up with PCP in 3-4 days and GI in 1-2 weeks. She is being discharged on a tapering dose of prednisone. Patient Condition at Discharge: Fair Plan - Discharge Summary Discharge Rx Participant: No New Discharge Prescriptions: New predniSONE See Taper PO DIRECTED #70 tab Continue Citalopram Hydrobromide [CeleXA] 40 mg PO DAILY Ibuprofen [Motrin Ib] 800 mg PO ONCE PRN PRN Reason: abdominal pain amLODIPine [Norvasc] 10 mg PO HS Montelukast [Singulair] 10 mg PO DAILY Albuterol Sulfate [Proair Hfa] 2 puff INHALATION RT-Q4H PRN PRN Reason: Shortness Of Breath inFLIXimab [Remicade] 100 mg IVPB Q56D Levocetirizine Dihydrochloride [Xyzal] 5 mg PO DAILY LORazepam [Ativan] 0.5 mg PO Q12HR PRN PRN Reason: Anxiety Olopatadine HCl [Patanol] 1 drop BOTH EYES DAILY Acetaminophen [Tylenol Arthritis] 650 mg PO ONCE PRN PRN Reason: abdominal pain traZODone HCL [Desyrel] 100 mg PO HS Discharge Medication List Citalopram Hydrobromide [CeleXA] 40 mg PO DAILY 05/03/19 [History] Ibuprofen [Motrin Ib] 800 mg PO ONCE PRN 05/03/19 [History] amLODIPine [Norvasc] 10 mg PO HS 09/19/19 [History] Acetaminophen [Tylenol Arthritis] 650 mg PO ONCE PRN 05/10/20 [History] Albuterol Sulfate [Proair Hfa] 2 puff INHALATION RT-Q4H PRN 05/10/20 [History] LORazepam [Ativan] 0.5 mg PO Q12HR PRN 05/10/20 [History] Levocetirizine Dihydrochloride [Xyzal] 5 mg PO DAILY 05/10/20 [History] Montelukast [Singulair] 10 mg PO DAILY 05/10/20 [History] Olopatadine HCl [Patanol] 1 drop BOTH EYES DAILY 05/10/20 [History] inFLIXimab [Remicade] 100 mg IVPB Q56D 05/10/20 [History] traZODone HCL [Desyrel] 100 mg PO HS 05/10/20 [History] predniSONE See Taper PO DIRECTED #70 tab 05/13/20 [Rx] Follow up Appointment(s)/Referral(s): Akil Ramirez MD [Primary Care Provider] - 1-2 days Activity/Diet/Wound Care/Special Instructions: regular diet as tolerated. softer blander foods. smaller meals more frequently . drink fluids. Follow up with your Personal Dr in 1 week.(call for appt) Follow up with Dr Russell in 2 weeks.(call for appt) continue with prednisone as directed start tomorrow. call your physician with any concerns or return to the ER with return or worsening of the symptoms that brought you here. activity as tolerated. Good hand washing for all in the house. last received motrin 800mg at 1PM Discharge Disposition: HOME SELF-CARE
== END 2020-05-13 13:05 | disposition home or self-care (01) | DRG 386 ==
LOC: EC 13:56 → 6NMEDSUR 16:28 → 6PED 05-11 12:27
PROVIDERS: ADMIT Hospitalist; ATTEND Hospitalist
PROC: 0D9670Z Drainage of Stomach with Drainage Device, Via Natural or Artificial Opening (ICD-10-PCS; principal; 2020-05-10)
DX: K50.112 Crohn's disease of large intestine with intestinal obstruction (principal); E87.1 Hypo-osmolality and hyponatremia; E86.1 Hypovolemia; I10 Essential (primary) hypertension; F41.9 Anxiety disorder, unspecified; F17.290 Nicotine dependence, other tobacco product, uncomplicated; Z71.6 Tobacco abuse counseling; Z79.899 Other long term (current) drug therapy; Z90.710 Acquired absence of both cervix and uterus; Z98.891 History of uterine scar from previous surgery; Z90.49 Acquired absence of other specified parts of digestive tract; Z87.42 Personal history of other diseases of the female genital tract; Z87.19 Personal history of other diseases of the digestive system; Z88.1 Allergy status to other antibiotic agents; Z88.5 Allergy status to narcotic agent; Z88.0 Allergy status to penicillin; Z88.2 Allergy status to sulfonamides
CPT/HCPCS: 36415; 74177; 80048; 80053; 81003; 82272; 83605; 83690; 85025; 85652; 86140; 87324; 96361; 96374; 96375; 96376; 99285

== ENCOUNTER → 2020-05-23 | Outpatient (CLI) | payer OTHER ==
[2020-05-23 12:52] VITALS: BP 150/78; PULSE 77; RESP 16; TEMP 98.6
--- NOTE | 2020-05-23 13:15 | P.PAINCN ---
History of Present Illness - Reason for Consult Consult date: 05/23/20 - History of Present Illness This is 50 years old female who had chronic severe low back pain with radiation to the lower extremity, started more than 10 years ago which required her to have lumbar laminectomy and fusion surgery done twice, the last surgery done 8 years ago and patient continued to have pain, the pain is constant and increases with any activity interference with her quality of life, she is able to walk a nother one but the intensity of the pain interfere with her ability to function, she denies any fever or night sweats she denies any change in bowel movement or urination, the pain is associated with some numbness radiated to the lower extremity onto her feet Past Medical History Past Medical History: Hypertension Additional Past Medical History / Comment(s): chron's, bowel obstruction History of Any Multi-Drug Resistant Organisms: None Reported Past Surgical History: Back Surgery, Bowel Resection, Section, Cholecystectomy, Hysterectomy Additional Past Surgical History / Comment(s): Colonoscopy, colostomy with reversal, 2 spinal fusions. Past Anesthesia/Blood Transfusion Reactions: No Reported Reaction Past Psychological History: Anxiety Smoking Status: Current every day smoker Past Alcohol Use History: Occasional Additional Past Alcohol Use History / Comment(s): SMOKES 2 CIGARS DAILY-SINCE AGE 15 Past Drug Use History: None Reported - Past Family History Mother Family Medical History: No Reported History Medications and Allergies Home Medications Medication Instructions Recorded Confirmed Type Citalopram Hydrobromide [CeleXA] 40 mg PO DAILY 05/03/19 05/23/20 History Ibuprofen [Motrin Ib] 800 mg PO ONCE PRN 05/03/19 05/23/20 History amLODIPine [Norvasc] 10 mg PO HS 09/19/19 05/23/20 History Acetaminophen [Tylenol Arthritis] 650 mg PO ONCE PRN 05/10/20 05/23/20 History Albuterol Sulfate [Proair Hfa] 2 puff INHALATION RT-Q4H PRN 05/10/20 05/23/20 History LORazepam [Ativan] 0.5 mg PO Q12HR PRN 05/10/20 05/23/20 History Levocetirizine Dihydrochloride 5 mg PO DAILY 05/10/20 05/23/20 History [Xyzal] Montelukast [Singulair] 10 mg PO DAILY 05/10/20 05/23/20 History Olopatadine HCl [Patanol] 1 drop BOTH EYES DAILY 05/10/20 05/23/20 History inFLIXimab [Remicade] 100 mg IVPB Q56D 05/10/20 05/23/20 History traZODone HCL [Desyrel] 100 mg PO HS 05/10/20 05/23/20 History predniSONE See Taper PO DIRECTED #70 tab 05/13/20 05/23/20 Rx Allergies Allergy/AdvReac Type Severity Reaction Status Date / Time Cephalosporins Allergy Rash/Hives Verified 05/23/20 12:37 codeine Allergy Dyspnea Verified 05/23/20 12:37 meperidine [From Demerol] Allergy Unknown Verified 05/23/20 12:37 morphine Allergy Unknown Verified 05/23/20 12:37 Penicillins Allergy Rash/Hives Verified 05/23/20 12:37 Sulfa (Sulfonamide Allergy Unknown Verified 05/23/20 12:37 Antibiotics) Physical Exam Vitals: Vital Signs Temp Pulse Resp BP Pulse Ox 05/23/20 12:31 98.6 F 77 16 150/78 98 Intake and Output 05/22/20 05/23/20 05/23/20 22:59 06:59 14:59 Other: Weight 61.235 kg Physical Examinations : -Constitutiona : Cooperative , not in acute distress . -HEENT : nech : supple , no Lymphadenopathy , normal thyroid size . : eyes : no ptosis , no icterus, no photophobia . - neurologic : Cranial nerve II to XII intact , no focal neurological deffecit . -psychatric : alert , oriented X 3 , appropriate affect , intact judgment and insight . -Lymphatic : no Lymphadenopathy . - musculoskeltal : Lumber spine moter stegnth lower extremities ,thigh and legs 5/5 Right side , 5/5 Left side deep tendon reflexes : normal Knee Jerk , normal ankle Jerk lumber facet Loading Test =positive Right , positive Left Range of motion of the lumbar spine Flexion 30 degrees, extension 10 degrees strait leg raising test = positive at 45 degree Fabere test= positive Right , and negative LT . Sever tenderness over the Sacroiliac joint on the Right , and Left sides . Tenderness over the surgical incision, no erythema, no swelling Results Comments: MRI of the lumbar spine= L3 4 foraminal stenosis and facet degeneration, L4-L5 postsurgical changes and hardware artifact and moderate to severe foraminal stenosis L5-S1 facet degeneration Assessment and Plan Plan: Assessment and plan=1-postlaminectomy pain syndrome lumbar area. 2-lumbar foraminal stenosis. 3-lumbar spondylosis with lumbar facet arthropathy without myelopathy. Patient could benefit from caudal epidural steroid injection with lysis of epidural adhesions under fluoroscopy guidance Time with Patient: Greater than 30 PQRS Measure Charge Sheet Measure #130: Documentation of Current Meds in Medical Chart: Patient's medications documented in chart Measure #226: Tobacco Use: Screen & Cessation Intervention: Pt screened for tobacco use AND intervention given Measure #111: Pneumonia Vaccination: Pneumococcal vaccine NOT administered or previously given Measure #47: Advance Care Plan: Advance care planning discussed & documented, pt chose/unable to give Measure #412: Opioid Treatment Agreement: No documentation of signed opioid treatment agreement Measure #408: Opioid Therapy Follow-up Evaluation: Patient had NO f/u eval minimum every 3 months during opioid therapy Measure #317: Preventitive Care & Scrn High Bld Press & F/U: Pre-hypertensive or hypertensive BP documented, pt will f/u with PCP Measure #128: Body Mass Index (BMI) Screening & Follow-up: BMI documented ABOVE normal parameters - f/u documented Measure #131: Pain Assessment & Follow-up: Pain positive & plan documented, Follow-up scheduled Measure #431: Unhealthy Alcohol Use Preventative Care & Scrn: Patient not identified as an unhealthy alcohol user PQRS Narrative: Smoking Status Current every day smoker Blood Pressure 150/78 Pain Intensity [Lower Medial 6 Back] Scale Used Numeric (1 - 10) Hx Alcohol Use (MH) No Home Medications: Ambulatory Orders Citalopram Hydrobromide [CeleXA] 40 mg PO DAILY 05/03/19 Ibuprofen [Motrin Ib] 800 mg PO ONCE PRN 05/03/19 amLODIPine [Norvasc] 10 mg PO HS 09/19/19 Acetaminophen [Tylenol Arthritis] 650 mg PO ONCE PRN 05/10/20 Albuterol Sulfate [Proair Hfa] 2 puff INHALATION RT-Q4H PRN 05/10/20 LORazepam [Ativan] 0.5 mg PO Q12HR PRN 05/10/20 Levocetirizine Dihydrochloride [Xyzal] 5 mg PO DAILY 05/10/20 Montelukast [Singulair] 10 mg PO DAILY 05/10/20 Olopatadine HCl [Patanol] 1 drop BOTH EYES DAILY 05/10/20 inFLIXimab [Remicade] 100 mg IVPB Q56D 05/10/20 traZODone HCL [Desyrel] 100 mg PO HS 05/10/20 predniSONE See Taper PO DIRECTED #70 tab 05/13/20
== END | disposition home or self-care (01) ==
LOC: PNWHC3 12:05
PROVIDERS: ATTEND Specialist
DX: M96.1 Postlaminectomy syndrome, not elsewhere classified (principal); M48.061 Spinal stenosis, lumbar region without neurogenic claudication; M47.816 Spondylosis without myelopathy or radiculopathy, lumbar region; I10 Essential (primary) hypertension; F17.200 Nicotine dependence, unspecified, uncomplicated; Z79.899 Other long term (current) drug therapy; Z79.1 Long term (current) use of non-steroidal anti-inflammatories (NSAID); Z79.891 Long term (current) use of opiate analgesic; Z79.51 Long term (current) use of inhaled steroids; Z88.1 Allergy status to other antibiotic agents; Z88.5 Allergy status to narcotic agent; Z88.2 Allergy status to sulfonamides; Z88.0 Allergy status to penicillin
CPT/HCPCS: 99211

== ENCOUNTER 2020-08-14 14:49 | Inpatient (IN) | payer OTHER ==
[2020-08-14] MEDS ORDERED: KETOROLAC 15 MG/ML 1 ML VIAL IVP STA ×2 (15:21→17:13)
[2020-08-14] MEDS ORDERED: SODIUM CHLORIDE 0.9% 1,000 ML IV STA (15:21)
[2020-08-14 16:00] LABS: Appearance,Urine Clear (Clear); Basophils # (A) 0.1 k/uL (0-0.2); Basophils % (A) 1 %; Bilirubin,Urine Negative (Negative); Blood,Urine Small (Negative); Color,Urine Light Yellow; Eosinophils # (A) 0.3 k/uL (0-0.7); Eosinophils % (A) 1 %; Glucose,Urine (UA) Negative (Negative); HCT 39.5 % (34.0-46.0); HGB 13.3 gm/dL (11.4-16.0); Ketones,Urine Negative (Negative); Leukocyte Esterase,Urine Negative (Negative); Lymphocytes # (A) 1.3 k/uL (1.0-4.8); Lymphocytes % (A) 7 %; MCH 32.2 pg (25.0-35.0); MCHC 33.6 g/dL (31.0-37.0); MCV 95.6 fL (80.0-100.0); Monocytes # (A) 0.5 k/uL (0-1.0); Monocytes % (A) 3 %; Mucus,Urine Rare /hpf; Neutrophils # (A) 15.7 k/uL (1.3-7.7); Neutrophils % (A) 87 %; Nitrite,Urine Negative (Negative); Platelet Count 271 k/uL (150-450); Protein,Urine Negative (Negative); RBC 4.13 m/uL (3.80-5.40); RBC,Urine <1 /hpf (0-5); Specific Gravity,Urine 1.014 (1.001-1.035); Squamous Epithelial Cell,Urine 1 /hpf (0-4); Urobilinogen,Urine <2.0 mg/dL (<2.0); WBC 18.1 k/uL (3.8-10.6); WBC,Urine 1 /hpf (0-5)
[2020-08-14 16:10] LABS: ALT 29 U/L (4-34); AST 32 U/L (14-36); African American GFR (CKD) >90 (>60 ml/min/1.73 sqM); Alkaline Phosphatase 94 U/L (38-126); Anion Gap 9 mmol/L; Blood Urea Nitrogen 17 mg/dL (7-17); Calcium 9.2 mg/dL (8.4-10.2); Carbon Dioxide 21 mmol/L (22-30); Chloride 105 mmol/L (98-107); Glucose 95 mg/dL (74-99); Non-African American GFR(CKD) >90 (>60 ml/min/1.73 sqM); Potassium 4.3 mmol/L (3.5-5.1); Sodium 135 mmol/L (137-145); Total Bilirubin 0.6 mg/dL (0.2-1.3); Total Protein 7.3 g/dL (6.3-8.2)
--- NOTE | 2020-08-14 16:12 | ED ---
General Adult HPI - General Source: patient, RN notes reviewed Mode of arrival: ambulatory Limitations: no limitations <Cheo Sampson - Last Filed: 08/14/20 22:27> <Sharyn Nelson - Last Filed: 08/17/20 01:04> - General Chief complaint: Back Pain/Injury Stated complaint: Lower back pain,difficulty urinating Time Seen by Provider: 08/14/20 15:09 - History of Present Illness Initial comments: The patient is a 50-year-old female that presented to the emergency department complaining of lower abdominal pain and some back pain. She noted that she has pain in her coccyx that radiates up. She came in because she was concerned because she was having some more difficulty urinating where she had to strain. She did report she has a history of Crohn's and large bowel resection. And lately she has been more constipated and had taken MiraLAX and strain to have bowel movements. She noted that she has full sensation in her legs and groin and buttocks. She was ambulatory around the room. 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 She said she did a urine dip stick at work and everything came back normal. She denied any nausea vomiting CVA tenderness chest pain shortness of breath headache diarrhea fever fatigue chills (Cheo Sampson) - Related Data Home Medications Medication Instructions Recorded Confirmed Citalopram Hydrobromide [CeleXA] 40 mg PO DAILY 05/03/19 08/14/20 Ibuprofen [Motrin Ib] 800 mg PO Q8H PRN 05/03/19 08/14/20 amLODIPine [Norvasc] 10 mg PO HS 09/19/19 08/14/20 Albuterol Sulfate [Proair Hfa] 2 puff INHALATION RT-Q4H PRN 05/10/20 08/14/20 LORazepam [Ativan] 0.5 mg PO BID 05/10/20 08/14/20 Levocetirizine Dihydrochloride 5 mg PO DAILY 05/10/20 08/14/20 [Xyzal] inFLIXimab [Remicade] 100 mg IVPB Q56D 05/10/20 08/14/20 traZODone HCL [Desyrel] 100 mg PO HS PRN 05/10/20 08/14/20 polyethylene glycoL 3350 [Miralax] 17 gm PO BID PRN 08/14/20 08/14/20 Previous Rx's Medication Instructions Recorded predniSONE See Taper PO DIRECTED #70 tab 05/13/20 Allergies Allergy/AdvReac Type Severity Reaction Status Date / Time Cephalosporins Allergy Rash/Hives Verified 08/14/20 17:59 codeine Allergy Dyspnea Verified 08/14/20 17:59 meperidine [From Demerol] Allergy Unknown Verified 08/14/20 17:59 morphine Allergy Unknown Verified 08/14/20 17:59 Penicillins Allergy Rash/Hives Verified 08/14/20 17:59 Sulfa (Sulfonamide Allergy Unknown Verified 08/14/20 17:59 Antibiotics) Review of Systems ROS Other: All systems not noted in ROS Statement are negative. <Cheo Sampson - Last Filed: 08/14/20 22:27> ROS Other: All systems not noted in ROS Statement are negative. <Sharyn Nelson - Last Filed: 08/17/20 01:04> ROS Statement: Those systems with pertinent positive or pertinent negative responses have been documented in the HPI. Past Medical History Past Medical History: Hypertension Additional Past Medical History / Comment(s): chron's, bowel obstruction, Lupus History of Any Multi-Drug Resistant Organisms: None Reported Past Surgical History: Back Surgery, Bowel Resection, Section, Cholecystectomy, Hysterectomy Additional Past Surgical History / Comment(s): Colonoscopy, colostomy with reversal, 2 spinal fusions. Past Anesthesia/Blood Transfusion Reactions: No Reported Reaction Past Psychological History: Anxiety Smoking Status: Current every day smoker Past Alcohol Use History: Occasional Past Drug Use History: None Reported - Past Family History Mother Family Medical History: No Reported History <Cheo Sampson - Last Filed: 08/14/20 22:27> General Exam Limitations: no limitations General appearance: alert, in no apparent distress Head exam: Present: atraumatic, normocephalic, normal inspection Eye exam: Present: normal appearance, PERRL, EOMI. Absent: scleral icterus, conjunctival injection, periorbital swelling ENT exam: Present: normal exam, mucous membranes moist Neck exam: Present: normal inspection. Absent: tenderness, meningismus, lymphadenopathy Respiratory exam: Present: normal lung sounds bilaterally. Absent: respiratory distress, wheezes, rales, rhonchi, stridor Cardiovascular Exam: Present: regular rate, normal rhythm, normal heart sounds. Absent: systolic murmur, diastolic murmur, rubs, gallop, clicks GI/Abdominal exam: Present: soft, normal bowel sounds. Absent: distended, tenderness (Suprapubic to palpation.), guarding, rebound, rigid Rectal exam: Present: normal inspection, normal rectal tone Extremities exam: Present: normal inspection, full ROM, normal capillary refill, other (Patient was ambulatory, full sensation to light touch in both lower extremities,). Absent: tenderness, pedal edema, joint swelling, calf tenderness Back exam: Present: normal inspection Neurological exam: Present: alert, oriented X3, CN II-XII intact, normal gait, reflexes normal Psychiatric exam: Present: normal affect, normal mood Skin exam: Present: warm, dry, intact, normal color. Absent: rash <Sampson,Cheo - Last Filed: 08/14/20 22:27> Course Vital Signs 08/14/20 08/14/20 15:04 18:17 Temperature 98.4 F Pulse Rate 84 81 Respiratory 20 18 Rate Blood Pressure 167/96 150/91 O2 Sat by Pulse 98 98 Oximetry Medical Decision Making - Lab Data Result diagrams: 08/14/20 15:43 08/14/20 15:43 - Radiology Data Radiology results: report reviewed, image reviewed <SampsonCheo - Last Filed: 08/14/20 22:27> - Lab Data Result diagrams: 08/16/20 07:35 08/16/20 07:35 <Sharyn Nelson - Last Filed: 08/17/20 01:04> - Medical Decision Making 50-year-old female complaining of lower abdominal pain, coccyx pain that radiates up her back. CT and labs ordered. White blood cells 18.1 on the rest of labs unremarkable Flagyl and Levaquin started at 539. Case was discussed with Dr. Nelson, It was decided to admit patient (Cheo Sampson) I was available for consultation in the emergency department. The history and physical exam were done by the midlevel provider. I was consulted for this patients care. I reviewed the case with the midlevel provider and based on their presentation of the patient, I agree with the assessment, medical decision making and plan of care as documented. I evaluated the patient myself. Spoke with Dr. Harris who agreed to admit the patient. Will place medicine on consult. Chart was dictated using [employer] dictation software. Attempts were made to correct any dictation errors however some typographical errors may persist. Patient was seen during a national state of emergency due to the Covid-19 pandemic. (Sharyn Nelson) - Lab Data Lab Results 08/14/20 08/14/20 08/14/20 Range/Units 15:43 15:43 15:43 WBC 18.1 H (3.8-10.6) k/uL RBC 4.13 (3.80-5.40) m/uL Hgb 13.3 (11.4-16.0) gm/dL Hct 39.5 (34.0-46.0) % MCV 95.6 (80.0-100.0) fL MCH 32.2 (25.0-35.0) pg MCHC 33.6 (31.0-37.0) g/dL RDW 13.0 (11.5-15.5) % Plt Count 271 (150-450) k/uL MPV 8.0 Neutrophils % 87 % Lymphocytes % 7 % Monocytes % 3 % Eosinophils % 1 % Basophils % 1 % Neutrophils # 15.7 H (1.3-7.7) k/uL Lymphocytes # 1.3 (1.0-4.8) k/uL Monocytes # 0.5 (0-1.0) k/uL Eosinophils # 0.3 (0-0.7) k/uL Basophils # 0.1 (0-0.2) k/uL Sodium 135 L (137-145) mmol/L Potassium 4.3 (3.5-5.1) mmol/L Chloride 105 (98-107) mmol/L Carbon Dioxide 21 L (22-30) mmol/L Anion Gap 9 mmol/L BUN 17 (7-17) mg/dL Creatinine 0.56 (0.52-1.04) mg/dL Est GFR (CKD-EPI)AfAm >90 (>60 ml/min/1.73 sqM) Est GFR (CKD-EPI)NonAf >90 (>60 ml/min/1.73 sqM) Glucose 95 (74-99) mg/dL Calcium 9.2 (8.4-10.2) mg/dL Total Bilirubin 0.6 (0.2-1.3) mg/dL AST 32 (14-36) U/L ALT 29 (4-34) U/L Alkaline Phosphatase 94 (38-126) U/L Total Protein 7.3 (6.3-8.2) g/dL Albumin 4.0 (3.5-5.0) g/dL Urine Color Light Yellow Urine Appearance Clear (Clear) Urine pH 5.0 (5.0-8.0) Ur Specific [place] 1.014 (1.001-1.035) Urine Protein Negative (Negative) Urine Glucose (UA) Negative (Negative) Urine Ketones Negative (Negative) Urine Blood Small H (Negative) Urine Nitrite Negative (Negative) Urine Bilirubin Negative (Negative) Urine Urobilinogen <2.0 (<2.0) mg/dL Ur Leukocyte Esterase Negative (Negative) Urine RBC <1 (0-5) /hpf Urine WBC 1 (0-5) /hpf Ur Squamous Epith Cells 1 (0-4) /hpf Urine Mucus Rare H (None) /hpf - Radiology Data Indeterminate low dense focus anterior to the patient's suture line and rectum, posterior to the bladder may represent fluid collection, noncontrast exam limits evaluation: For possible chronic abscess, surgical consult suggested. (Cheo Sampson) Disposition Is patient prescribed a controlled substance at d/c from ED?: No Time of Disposition: 18:17 <Cheo Sampson - Last Filed: 08/14/20 22:27> <Sharyn Nelson - Last Filed: 08/17/20 01:04> Clinical Impression: Intra-abdominal abscess post-procedure, Crohn's disease, Urinary retention, Constipation Disposition: ADMITTED IP TO THIS HOSP
--- NOTE | 2020-08-14 16:46 | CT ---
EXAMINATION TYPE: CT abdomen pelvis wo con DATE OF EXAM: 08/14/2020 COMPARISON: Prior CT 05/10/2020 HISTORY: Lower back pain, difficulty urinating CT DLP: 481.5 mGycm Automated exposure control for dose reduction was used. TECHNIQUE: Helical acquisition of images from the lung bases through the pelvis. FINDINGS: Lack of intravenous contrast could compromise sensitivity. Surgical clips present in the ab domen LUNG BASES: No significant abnormality is appreciated. AORTA: No significant abnormality is appreciated. LIVER/GB: No significant interval change is appreciated patient is post cholecystectomy., Liver shows no mass PANCREAS: No significant abnormality is seen. SPLEEN: No significant abnormality is seen. ADRENALS: No significant abnormality is seen. KIDNEYS: No significant abnormality is seen. REPRODUCTIVE ORGANS: Uterus and adnexal structures are surgically absent. At the site posterior to t he urinary bladder and anterior to the rectum there is a soft tissue density with central lucency, th ickened wall measuring approximately 6.3 cm anterior to posterior dimension by 6.8 cm in cephalad to caudal dimension. URINARY BLADDER: No significant abnormality is seen. BOWEL: Dilated small bowel loops in the previous exam have improved, suture line is present FREE AIR: No Free Air is visible. ASCITES: None visible. PELVIC ADENOPATHY: None visualized. RETROPERITONEAL ADENOPATHY: No Retroperitoneal Adenopathy visible. OSSEOUS STRUCTURES: No postop changes are stable, tiny posterior fusion on the right shows breach co rtices at the anterior margin of the screws as on prior, intervertebral spacing block is present at L 4-5, there is associated loss of disc height and spondylosis IMPRESSION: INDETERMINATE LOW DENSE FOCUS ANTERIOR TO THE PATIENT'S SUTURE LINE AND RECTUM, POSTERIOR TO THE BLAD MARTA MAY REPRESENT FLUID COLLECTION, NONCONTRAST EXAM LIMITS EVALUATION, CORRELATE FOR POSSIBLE CHRONI C ABSCESS, SURGICAL CONSULT SUGGESTED
[2020-08-14] MEDS ORDERED: HYDROmorphone 1 MG/ML 1 ML SYRINGE IVP STA (17:36)
[2020-08-14] MEDS ORDERED: NALOXONE 0.4 MG/ML 1 ML VIAL IV PRN (17:47)
[2020-08-14] MEDS ORDERED: LEVOFLOXACIN 750MG-D5W PMX 750 MG in DEXTROSE/WATER 1 150ML.BAG IVPB SCH (18:00)
[2020-08-14] MEDS: SODIUM CHLORIDE 0.9% 1,000 ML IV SCH (18:08)
[2020-08-14] MEDS ORDERED: METOCLOPRAMIDE 5 MG/ML 2 ML VIAL IVP STA (18:45)
[2020-08-14] MEDS ORDERED: traZODone HCL 100 MG TAB PO PRN (19:17)
[2020-08-14] MEDS ORDERED: ALBUTEROL NEBULIZED 2.5 MG/3 ML INHALATION PRN (19:17)
[2020-08-14] MEDS ORDERED: TEMAZEPAM 15 MG CAP PO PRN (19:19)
[2020-08-14] MEDS: LEVOFLOXACIN 750MG-D5W PMX 750 MG in DEXTROSE/WATER 1 150ML.BAG IVPB SCH (20:15)
[2020-08-14] MEDS: HYDROmorphone 1 MG/ML 1 ML SYRINGE IVP PRN ×2 (20:15→23:46)
[2020-08-14 20:18] LABS: INR 0.9 (<1.2); Prothrombin Time 9.9 sec (9.0-12.0)
[2020-08-14] MEDS: HEPARIN SODIUM,PORCINE 5,000 UNIT/ML 1 ML VIAL SQ SCH (20:22)
[2020-08-14] MEDS: NICOTINE 14MG/24HR PATCH TRANSDERM SCH (20:22)
[2020-08-14] MEDS: amLODIPine 10 MG TAB PO SCH (20:29)
[2020-08-14] MEDS: LORazepam 0.5 MG TAB PO SCH (20:30)
[2020-08-14] MEDS: PANTOPRAZOLE 40 MG/10 ML VIAL IVP SCH (20:31)
[2020-08-14] MEDS ORDERED: HEPARIN SODIUM,PORCINE 5,000 UNIT/ML 1 ML VIAL SQ SCH (21:00)
[2020-08-14] MEDS: metroNIDAZOLE-NS PMX 500 MG in SALINE 1 100ML.BAG IVPB SCH (22:18)
--- NOTE | 2020-08-15 01:11 | CONS ---
CONSULTATION REASON FOR CONSULTATION: Advice regarding Crohn's disease requested by Dr. Harris. HISTORY OF PRESENT ILLNESS: This 50-year-old woman with a past medical history of multiple medical problems including history of hypertension, history of Crohn's disease, bowel obstruction, history of bowel resection, cholecystomy being followed by Dr. Farooq Ramirez in the outpatient setting, also seeing Dr. Russell. Patient was taking Remicade every 8 weeks, but recently the patient has been having joint pains and rash and other findings which was evaluated by Dr. Chavarria the financial analyst intern and possibly the diagnosis of drug- induced lupus. The reports are not available at this time. Currently the patient is complaining of back pain and difficulty in micturition and pain in the rectal area. The patient came to [facility] and was admitted for further evaluation and treatment. The patient apparently takes MiraLAX because of the hardened stool at this time. In the ER, the WBC elevated at 18.1 and the COVID was negative and the patient also had abdominal and pelvis CAT scan which showed indeterminate low-dense fossa anterior to the patient's suture line and the rectum posterior to the bladder also may represent fluid collection. Chronic abscess was also suggested. The patient also had apparently history of stricture, also. There is no history of fever, rigors. No history of headache, loss of consciousness, seizures. PAST MEDICAL HISTORY: History of Crohn's disease, bowel obstruction, history of drug-induced lupus diagnosed recently, cholecystectomy, colonoscopy, colostomy and reversal. MEDICATIONS: Desyrel, MiraLAX, Norvasc, ProAir, prednisone, Remicade, Xyzal, Ativan. Motrin. Celexa. ALLERGIES: CEPHALOSPORIN, CODEINE, DEMEROL, MORPHINE, PENICILLIN, SULFA. FAMILY HISTORY: No history of heart disease or strokes in the family. SOCIAL HISTORY: History of smoking and occasional alcohol intake. REVIEW OF SYSTEMS: ENT: No diminished vision. No diminished hearing. CARDIOVASCULAR: No angina. RESPIRATORY: As mentioned earlier. GI: As mentioned earlier. no dysuria or hematuria. NERVOUS SYSTEM: No numbness, weakness. ALLERGY/IMMUNOLOGY: No asthma or hayfever. MUSCULOSKELETAL as mentioned earlier. HEMATOLOGY/ONCOLOGY: No history of anemia. ENDOCRINE: No history of diabetes or hypothyroidism. CONSTITUTIONAL As mentioned earlier. DERMATOLOGY: Negative. RHEUMATOLOGY: Negative. PSYCHIATRIC: As mentioned earlier. PHYSICAL EXAMINATION: Alert and oriented times three. Pulse 81, blood pressure 150/91, respiration 18, temperature 98.4, pulse ox 98% on room air. HEENT is conjunctivae normal. NECK: No JVD. CARDIOVASCULAR: S1, S2 normal. RESPIRATORY: Breath sounds diminished in the bases. No rhonchi. No crackles. ABDOMEN: Soft. No discomfort. No tenderness. No guarding. No rigidity. Bowel sounds present. LEGS: No edema. No swelling. NERVOUS SYSTEM: Higher functions as mentioned earlier. Moves all 4 limbs. No focal motor or sensory deficits. LYMPHATICS: No lymph nodes palpable in the neck, axillae or groin. JOINTS: No active deforming arthropathy. LABS: WBC 18.1, sodium 130, potassium 4.3. ASSESSMENT: 1. Back pain and difficulty in micturition with possibly abscess anterior to rectum and as well as posterior to the bladder, possibly secondary to Crohn's disease. 2. Crohn's disease, long-standing. 3. Increased WBC. 4. Hyponatremia. 5. Hypertension. 6. History of bowel obstruction and stricture possibly. 7. History of apparent drug induced lupus, recent. 8. History of back surgery. 9. History of bowel resection. 10.History of cholecystectomy. 11.History of anxiety. 12.History of nicotine dependence. 13.FULL CODE. RECOMMENDATIONS AND DISCUSSION: This 50-year-old woman presented with multiple medical issues. I recommend to continue current medications. The patient is started on broad-spectrum antibiotics, combination of Levaquin and Flagyl. I would also recommend gastroenterology and Infectious Disease evaluation also. Otherwise prognosis guarded because of multiple complex medical issues. I will restart home medications and we will also obtain the test regarding the drug induced lupus diagnosis recently done by a financial analyst intern. We will follow the patient closely. Overall prognosis guarded because of multiple complex medical issues. A copy of dictation being forwarded to Dr. Farooq Ramirez who is the primary physician. MMODL / IJN: [id number] /
[2020-08-15] MEDS: metroNIDAZOLE-NS PMX 500 MG in SALINE 1 100ML.BAG IVPB SCH ×3 (03:30→20:13)
[2020-08-15] MEDS: HYDROmorphone 1 MG/ML 1 ML SYRINGE IVP PRN ×6 (03:31→23:22)
[2020-08-15] MEDS: ONDANSETRON 4 MG/2 ML VIAL IVP PRN ×3 (03:31→20:12)
[2020-08-15] MEDS: HEPARIN SODIUM,PORCINE 5,000 UNIT/ML 1 ML VIAL SQ SCH ×3 (04:16→20:18)
[2020-08-15] MEDS: PANTOPRAZOLE 40 MG/10 ML VIAL IVP SCH (08:13)
[2020-08-15] MEDS: LORATADINE 10 MG TAB PO SCH (08:14)
[2020-08-15] MEDS: CITALOPRAM HYDROBROMIDE 20 MG TAB PO SCH (08:14)
[2020-08-15] MEDS: NICOTINE 14MG/24HR PATCH TRANSDERM SCH (08:14)
[2020-08-15] MEDS: LORazepam 0.5 MG TAB PO SCH ×2 (08:14→21:04)
[2020-08-15 09:16] LABS: Basophils # (A) 0.04 X 10*3/uL (0.00-0.10); Basophils % (A) 0.2 %; Eosinophils # (A) 0.15 X 10*3/uL (0.04-0.35); Eosinophils % (A) 0.9 %; HCT 34.9 % (37.2-46.3); HGB 11.2 g/dL (12.0-15.0); Lymphocytes # (A) 1.53 X 10*3/uL (0.90-5.00); Lymphocytes % (A) 9.3 %; MCH 31.9 pg (27.0-32.0); MCHC 32.1 g/dL (32.0-37.0); MCV 99.4 fL (80.0-97.0); Mean Platelet Volume 10.9 fL (9.5-12.2); Monocytes # (A) 0.88 X 10*3/uL (0.20-1.00); Monocytes % (A) 5.4 %; Neutrophils # (A) 13.74 X 10*3/uL (1.80-7.70); Neutrophils % (A) 83.7 %; Platelet Count 271 X 10*3/uL (140-440); RBC 3.51 X 10*6/uL (4.10-5.20); RDW 12.7 % (11.5-14.5); WBC 16.42 X 10*3/uL (4.50-10.00)
[2020-08-15] MEDS ORDERED: AZTREONAM 2 GM in SODIUM CHLORIDE 0.9% 100 ML IVPB ONE (10:00)
[2020-08-15 10:12] LABS: African American GFR (CKD) 122.3 (60.0-200.0); Albumin 3.5 g/dL (3.80-4.90); Albumin/Globulin Ratio 2.06 (1.60-3.17); Anion Gap 6.5 mmol/L (4.00-12.00); Calcium 8.1 mg/dL (8.7-10.3); Carbon Dioxide 24.5 mmol/L (21.6-31.8); Globulin 1.7 g/dL (1.6-3.3); Non-African American GFR(CKD) 105.5 (60.0-200.0); Potassium 4.1 mmol/L (3.5-5.5); Total Bilirubin 0.8 mg/dL (0.2-1.2); Total Protein 5.2 g/dL (6.2-8.2)
--- NOTE | 2020-08-15 10:33 | P.CONS ---
History of Present Illness - Reason for Consult Consult date: 08/15/20 - History of Present Illness HISTORY OF PRESENT ILLNESS This is a 50-year-old female with past medical history significant for Crohn's disease with history of a total colectomy at age 26 with formation of ileostomy which was subsequently reversed with fecal pouch. She has been on Remicade managed by Dr. Hernandez but developed swelling and joint pain and was sent to Dr. Chavarria. She was tentatively diagnosed with drug induced lupus from the Remicade. Patient complains of recently having pain and straining with bowel movement and increased MiraLAX. She is also having difficulty urinating and has to bend over and force the urine out. She is feeling pressure in the front and intense pain in the back up to a #10. Maintain pain seems to be in the back area. This is been going on for a couple days and worsening. No nausea or vomiting. She denies any fevers. No cough or shortness of breath. Patient has been afebrile, heart rate 76, blood pressure 106/61, pulse ox 92% on room air. Patient presented with leukocytosis of 18.1, creatinine 0.56. Liver function tests were normal. Urinalysis showed a small amount of blood without infection. Dietrich virus PCR not detected. CAT scan of the abdomen and pelvis revealed indeterminate low density focus anterior to patient suture line and rectum, posterior to bladder may represent fluid collection. Possible chronic abscess. Patient was started on Flagyl IV. REVIEW OF SYSTEMS Constitutional: No fever, no chills, no night sweats. No weight change. No weakness, fatigue or lethargy. EENT: No headache. No nasal drainage or congestion. No epistaxis. No sore throat. Lungs: No shortness of breath, cough, no sputum production. No wheezing. Cardiovascular: No chest pain, no lower extremity edema. No lightheadedness or dizziness. No syncopal episodes. Abdominal: Reports abdominal pain. No nausea, vomiting. No diarrhea. Reports constipation. No loss of appetite. Genitourinary: No dysuria, increased frequency, urgency. Reports difficulty starting urinary flow. Reports difficulty urinating. Musculoskeletal: No myalgias. No muscle weakness. Integumentary: No wounds, no lesions. No rash or pruritus. Neurologic: No aphasia. No facial droop. No change in mentation. Endocrine: No abnormal blood sugars. PHYSICAL EXAMINATION Gen: This is a 50-year-old female. Patient is resting bed appears to be comfortable. HEENT: Head is atraumatic, normocephalic. Pupils equal, round. Sclerae is anicteric. NECK: Supple. No JVD. No lymphadenopathy. No thyromegaly. LUNGS: Clear to auscultation. No wheezes or rhonchi. No intercostal retractions. HEART: Regular rate and rhythm. No murmur. ABDOMEN: Soft. Bowel sounds are present. No masses. Lower abdominal tenderness. EXTREMITIES: No pedal edema. No calf tenderness. NEUROLOGICAL: Patient is awake, alert and oriented x3. Cranial nerves 2 through 12 are grossly intact. ASSESSMENT Abdominal abscess Crohn's disease PLAN Continue metronidazole 500 mg IV piggyback every 8 hours Start Azactam 2 g IV piggyback every 8 hours Continue supportive care Further recommendations as patient progresses. Thank you kindly for this consultation. The above dictated assessment and findings were discussed with Dr. Franco. The impression and plan of care have been directed as dictated. Melissa De La Garza nurse practitioner acting as scribe for Dr. Franco. Past Medical History Past Medical History: Hypertension Additional Past Medical History / Comment(s): chron's, bowel obstruction, Lupus History of Any Multi-Drug Resistant Organisms: None Reported Past Surgical History: Back Surgery, Bowel Resection, Section, Cholecystectomy, Hysterectomy Additional Past Surgical History / Comment(s): Colonoscopy, colostomy with reversal, 2 spinal fusions. Past Anesthesia/Blood Transfusion Reactions: No Reported Reaction Past Psychological History: Anxiety Smoking Status: Current every day smoker Past Alcohol Use History: Occasional Past Drug Use History: None Reported - Past Family History Mother Family Medical History: No Reported History Medications and Allergies Home Medications Medication Instructions Recorded Confirmed Type Citalopram Hydrobromide [CeleXA] 40 mg PO DAILY 05/03/19 08/14/20 History Ibuprofen [Motrin Ib] 800 mg PO Q8H PRN 05/03/19 08/14/20 History amLODIPine [Norvasc] 10 mg PO HS 09/19/19 08/14/20 History Albuterol Sulfate [Proair Hfa] 2 puff INHALATION RT-Q4H PRN 05/10/20 08/14/20 History LORazepam [Ativan] 0.5 mg PO BID 05/10/20 08/14/20 History Levocetirizine Dihydrochloride 5 mg PO DAILY 05/10/20 08/14/20 History [Xyzal] inFLIXimab [Remicade] 100 mg IVPB Q56D 05/10/20 08/14/20 History traZODone HCL [Desyrel] 100 mg PO HS PRN 05/10/20 08/14/20 History predniSONE See Taper PO DIRECTED #70 tab 05/13/20 08/14/20 Rx polyethylene glycoL 3350 [Miralax] 17 gm PO BID PRN 08/14/20 08/14/20 History Allergies Allergy/AdvReac Type Severity Reaction Status Date / Time Cephalosporins Allergy Rash/Hives Verified 08/14/20 17:59 codeine Allergy Dyspnea Verified 08/14/20 17:59 meperidine [From Demerol] Allergy Unknown Verified 08/14/20 17:59 morphine Allergy Unknown Verified 08/14/20 17:59 Penicillins Allergy Rash/Hives Verified 08/14/20 17:59 Sulfa (Sulfonamide Allergy Unknown Verified 08/14/20 17:59 Antibiotics) Physical Exam Vitals: Vital Signs Temp Pulse Pulse Resp BP BP BP 08/15/20 07:53 99.4 F 76 18 106/61 08/15/20 02:00 98.7 F 76 18 113/60 08/14/20 19:39 98.3 F 66 18 154/83 08/14/20 18:17 81 18 150/91 08/14/20 15:04 98.4 F 84 20 167/96 Pulse Ox 08/15/20 07:53 92 L 08/15/20 02:00 92 L 08/14/20 19:39 97 08/14/20 18:17 98 08/14/20 15:04 98 Intake and Output 08/14/20 08/15/20 08/15/20 22:59 06:59 14:59 Intake Total 460 1025 Balance 460 1025 Intake: Intake, IV Titration 100 1025 Amount Levofloxacin 750Mg-D5w 100 Pmx 750 mg In Dextrose/ Water 1 150ml.bag @ 100 mls/hr IVPB Q24H [facility] Rx#: [id number] Sodium Chloride 0.9% 1, 825 000 ml @ 75 mls/hr IV . [id number] [facility] Rx#:[id number] metroNIDAZOLE-NS PMX 500 200 mg In Saline 1 100ml.bag @ 100 mls/hr IVPB Q8H [facility] Rx#:[id number] Oral 360 Other: # Voids 1 1 # Bowel Movements 1 Weight 63.503 kg Results CBC & Chem 7: 08/15/20 05:41 08/15/20 05:41 Labs: Abnormal Lab Results - Last 24 Hours (Table) 08/14/20 08/14/20 08/14/20 Range/Units 15:43 15:43 15:43 WBC 18.1 H (3.8-10.6) k/uL RBC (4.10-5.20) X 10*6/uL Hgb (12.0-15.0) g/dL Hct (37.2-46.3) % MCV (80.0-97.0) fL Immature Gran # (0.00-0.04) X 10*3/uL Neutrophils # 15.7 H (1.3-7.7) k/uL Sodium 135 L (137-145) mmol/L Carbon Dioxide 21 L (22-30) mmol/L C-Reactive Protein (<10.0) mg/L Urine Blood Small H (Negative) Urine Mucus Rare H (None) /hpf 08/14/20 08/15/20 Range/Units 19:48 05:41 WBC 16.42 H (3.8-10.6) k/uL RBC 3.51 L (4.10-5.20) X 10*6/uL Hgb 11.2 L (12.0-15.0) g/dL Hct 34.9 L (37.2-46.3) % MCV 99.4 H (80.0-97.0) fL Immature Gran # 0.08 H (0.00-0.04) X 10*3/uL Neutrophils # 13.74 H (1.3-7.7) k/uL Sodium (137-145) mmol/L Carbon Dioxide (22-30) mmol/L C-Reactive Protein 14.3 H (<10.0) mg/L Urine Blood (Negative) Urine Mucus (None) /hpf
[2020-08-15] MEDS: IBUPROFEN 800 MG TAB PO PRN (12:12)
[2020-08-15] MEDS: SODIUM CHLORIDE 0.9% 1,000 ML IV SCH ×2 (13:16→20:58)
[2020-08-15] MEDS: IOPAMIDOL CONTRAST (ORAL USE) VIAL PO PRN ×2 (15:09→16:00)
--- NOTE | 2020-08-15 16:24 | P.GSHP ---
History of Present Illness H&P Date: 08/15/20 Chief Complaint: Abdominal pain This 50-year-old female known to myself. Patient history of Crohn disease. She underwent previous subtotal colectomy with ileal rectal anastomosis. Patient presents emergently complaints abdominal pain. Her CAT scan is suggestive of an abscess in the pelvis between the rectum and the bladder. Patient states her pain is better today. Past Medical History Past Medical History: Hypertension Additional Past Medical History / Comment(s): chron's, bowel obstruction, Lupus History of Any Multi-Drug Resistant Organisms: None Reported Past Surgical History: Back Surgery, Bowel Resection, Section, Cholecystectomy, Hysterectomy Additional Past Surgical History / Comment(s): Colonoscopy, colostomy with reversal, 2 spinal fusions. Past Anesthesia/Blood Transfusion Reactions: No Reported Reaction Past Psychological History: Anxiety Smoking Status: Current every day smoker Past Alcohol Use History: Occasional Past Drug Use History: None Reported - Past Family History Mother Family Medical History: No Reported History Medications and Allergies Home Medications Medication Instructions Recorded Confirmed Type Citalopram Hydrobromide [CeleXA] 40 mg PO DAILY 05/03/19 08/14/20 History Ibuprofen [Motrin Ib] 800 mg PO Q8H PRN 05/03/19 08/14/20 History amLODIPine [Norvasc] 10 mg PO HS 09/19/19 08/14/20 History Albuterol Sulfate [Proair Hfa] 2 puff INHALATION RT-Q4H PRN 05/10/20 08/14/20 History LORazepam [Ativan] 0.5 mg PO BID 05/10/20 08/14/20 History Levocetirizine Dihydrochloride 5 mg PO DAILY 05/10/20 08/14/20 History [Xyzal] inFLIXimab [Remicade] 100 mg IVPB Q56D 05/10/20 08/14/20 History traZODone HCL [Desyrel] 100 mg PO HS PRN 05/10/20 08/14/20 History predniSONE See Taper PO DIRECTED #70 tab 05/13/20 08/14/20 Rx polyethylene glycoL 3350 [Miralax] 17 gm PO BID PRN 08/14/20 08/14/20 History Allergies Allergy/AdvReac Type Severity Reaction Status Date / Time Cephalosporins Allergy Rash/Hives Verified 08/14/20 17:59 codeine Allergy Dyspnea Verified 08/14/20 17:59 meperidine [From Demerol] Allergy Unknown Verified 08/14/20 17:59 morphine Allergy Unknown Verified 08/14/20 17:59 Penicillins Allergy Rash/Hives Verified 08/14/20 17:59 Sulfa (Sulfonamide Allergy Unknown Verified 08/14/20 17:59 Antibiotics) Surgical - Exam Vital Signs Temp Pulse Resp BP Pulse Ox 98.4 F 84 20 167/96 98 08/14/20 15:04 08/14/20 15:04 08/14/20 15:04 08/14/20 15:04 08/14/20 15:04 - General well developed, moderate distress - Eyes PERRL - ENT normal pinna - Neck no masses - Respiratory normal expansion - Cardiovascular Rhythm: regular - Abdomen Mild diffuse tenderness. There is no rebound or guarding Abdomen: soft Results - Labs 08/15/20 05:41 08/15/20 05:41 Abnormal Lab Results - Last 24 Hours (Table) 08/14/20 08/15/20 08/15/20 Range/Units 19:48 05:41 05:41 WBC 16.42 H (4.50-10.00) X 10*3/uL RBC 3.51 L (4.10-5.20) X 10*6/uL Hgb 11.2 L (12.0-15.0) g/dL Hct 34.9 L (37.2-46.3) % MCV 99.4 H (80.0-97.0) fL Immature Gran # 0.08 H (0.00-0.04) X 10*3/uL Neutrophils # 13.74 H (1.80-7.70) X 10*3/uL Calcium 8.1 L (8.7-10.3) mg/dL C-Reactive Protein 14.3 H (<10.0) mg/L Total Protein 5.2 L (6.2-8.2) g/dL Albumin 3.50 L (3.80-4.90) g/dL Diabetes panel 08/15/20 Range/Units 05:41 Sodium 138 (135-145) mmol/L Potassium 4.1 (3.5-5.5) mmol/L Chloride 107 (96-109) mmol/L Carbon Dioxide 24.5 (21.6-31.8) mmol/L BUN 12.0 (9.0-27.0) mg/dL Creatinine 0.6 (0.6-1.5) mg/dL Glucose 86 (70-110) mg/dL Calcium 8.1 L (8.7-10.3) mg/dL AST 35 (13-35) U/L ALT 29 (8-44) U/L Alkaline Phosphatase 80 (41-126) U/L Total Protein 5.2 L (6.2-8.2) g/dL Albumin 3.50 L (3.80-4.90) g/dL Calcium panel 08/15/20 Range/Units 05:41 Calcium 8.1 L (8.7-10.3) mg/dL Albumin 3.50 L (3.80-4.90) g/dL Pituitary panel 08/15/20 Range/Units 05:41 Sodium 138 (135-145) mmol/L Potassium 4.1 (3.5-5.5) mmol/L Chloride 107 (96-109) mmol/L Carbon Dioxide 24.5 (21.6-31.8) mmol/L BUN 12.0 (9.0-27.0) mg/dL Creatinine 0.6 (0.6-1.5) mg/dL Glucose 86 (70-110) mg/dL Calcium 8.1 L (8.7-10.3) mg/dL Adrenal panel 08/15/20 Range/Units 05:41 Sodium 138 (135-145) mmol/L Potassium 4.1 (3.5-5.5) mmol/L Chloride 107 (96-109) mmol/L Carbon Dioxide 24.5 (21.6-31.8) mmol/L BUN 12.0 (9.0-27.0) mg/dL Creatinine 0.6 (0.6-1.5) mg/dL Glucose 86 (70-110) mg/dL Calcium 8.1 L (8.7-10.3) mg/dL Total Bilirubin 0.8 (0.2-1.2) mg/dL AST 35 (13-35) U/L ALT 29 (8-44) U/L Alkaline Phosphatase 80 (41-126) U/L Total Protein 5.2 L (6.2-8.2) g/dL Albumin 3.50 L (3.80-4.90) g/dL Assessment and Plan Assessment: Possible pelvic abscess related to previous ileal rectal anastomosis. Patient will undergo interventional radiology possible drainage. A computed tomography scan with contrast has been ordered prior to this. The patient will be observed. We will have GI input
--- NOTE | 2020-08-15 16:53 | CONS ---
CONSULTATION DATE OF DICTATION: 08/15/2020 REASON FOR CONSULTATION: History of Crohn's disease and possible pelvic abscess. HISTORY OF PRESENT ILLNESS: The patient is a 50-year-old pleasant white female with a history of Crohn's disease diagnosed at age 20. She had subtotal colectomy with ileostomy and subsequently several months later had a reversal done. She subsequently developed tight ileorectal anastomotic stricture with active Crohn's disease at the site of stricture. She was admitted to the hospital in 2018, at which time she underwent flexible sigmoidoscopy with dilation of anastomotic stricture. Subsequently her last hospitalization was in April of 2020 for the same reason, resulting in colonic obstruction, treated with steroids and laxatives, and she did well. She was started on Remicade infusions about 6 months ago and she has been receiving it every 8 weeks. Recently she started developing severe arthritis with swelling of her joints and she was seen by Dr. Chavarria, admitting interviewer, and was diagnosed with drug-induced lupus and was advised to stop the Remicade infusions and start another biologic therapy. In the meantime, she started developing lower abdominal discomfort with worsening abdominal pain and hence came to the emergency room yesterday. She did have a CT of the abdomen and pelvis done that showed indeterminate low-dense focus anterior to the suture line in the rectum posterior to the bladder; may represent fluid collection. Possibility of abscess was suggested by the radiologist. She has been having severe lower abdominal pain and pain in the perineal area as well as difficulty with urination. She denies any fever, chills or night sweats. PAST MEDICAL HISTORY: Significant for Crohn's disease diagnosed at age 20, status post surgery followed by ileorectal anastomosis. History of hypertension. PAST SURGICAL HISTORY: Back surgery, , cholecystectomy, subtotal colectomy with ileorectal anastomosis, hysterectomy. MEDICATIONS: Medications at home include Remicade infusions every 8 weeks. Last one was 4 weeks ago. Motrin, Norvasc, ProAir, Ativan, Xyzal, Desyrel, prednisone recently started [address] Chavarria for arthritis symptoms, and MiraLAX. ALLERGIES: CODEINE, CEPHALOSPORINS, DEMEROL, MORPHINE, PENICILLIN AND SULFA. SOCIAL HISTORY: Chronic smoker. No alcohol use. FAMILY HISTORY: Unremarkable. REVIEW OF SYSTEMS: CARDIOPULMONARY: No chest pain or shortness of breath. GENITOURINARY: No dysuria or hematuria. MUSCULOSKELETAL: Unremarkable. SKIN: Unremarkable. ENDOCRINE: Unremarkable. PSYCHIATRIC: Unremarkable. NEUROLOGY: Unremarkable. ENT/VISION: Unremarkable. CONSTITUTIONAL: No recent weight loss. No fever, chills, night sweats. PHYSICAL EXAMINATION: Appears comfortable. VITAL SIGNS: Stable. Blood pressure is 128/70, pulse rate 82, temperature 98.5. HEENT examination unremarkable. Conjunctivae pink. Sclerae anicteric. Oral cavity no lesions. NECK: No JVD or lymph node enlargement. CHEST: Clear to auscultation. HEART: Regular rate and rhythm. ABDOMEN: Soft. There was some tenderness in the suprapubic area and tenderness in the perineal area, but no obvious perianal pathology noted. LABS: WBC yesterday was 18. Today it is 16.4, hemoglobin 11.2, platelets normal. Basic metabolic panel is within normal limits. BUN and creatinine are normal. CRP is 14.3. Coronavirus PCR is negative. IMPRESSION: 1. This is a patient with longstanding history of Crohn's disease diagnosed at age 20, status post subtotal colectomy with ileorectal anastomosis several years ago, who developed recurrent Crohn's disease at the ileocolic anastomotic stricture, for which she was started on Remicade infusions about 8 months ago. 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 Chavarria. She presented to the hospital with lower abdominal pain and pelvic pain. CT scan showed possible abscess behind the rectum anterior to the bladder. 2. Leukocytosis secondary to pelvic abscess. 3. 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 RECOMMENDATIONS: 1. Continue with broad-spectrum antibiotics. 2. Agree with interventional radiology consultation for possible drainage of the abscess. 3. Continue with MiraLAX. 4. Repeat labs in the morning. 5. I had a lengthy discussion with the patient regarding stopping the Remicade because of drug-induced lupus and will consider starting her on Stelara on an outpatient basis once her abscess resolves. Will follow with you closely. Thank you for this consultation. MMODL / IJN: [id number] /
[2020-08-15] MEDS: AZTREONAM 2 GM in SODIUM CHLORIDE 0.9% 100 ML IVPB SCH ×2 (17:08→23:22)
--- NOTE | 2020-08-15 17:25 | CT ---
EXAMINATION TYPE: CT abdomen pelvis w con DATE OF EXAM: 08/15/2020 COMPARISON: 08/14/2020 HISTORY: Abdominal abscess CT DLP: 1196 mGycm Automated exposure control for dose reduction was used. CONTRAST: Performed with IV Contrast, patient injected with 100 mL of Isovue 300. Images obtained from the diaphragm to the floor the pelvis with oral and intravenous contrast. There are some mild atelectasis at the lung bases. Heart size is normal. There is no pericardial effu rula. There is no pleural effusion. Liver spleen stomach pancreas appear normal. Bile ducts are not dilated. There are clips from cholecy stectomy. There is no adrenal mass. Kidneys show satisfactory contrast opacification. There is no hydronephrosi s. Ureters are not dilated. There is no retroperitoneal adenopathy. Bladder distends smoothly. There is irregular 6 cm thick walled fluid collection in the lower pelvis between the rectum and urinary bl adder. There is hysterectomy. The lumbar vertebra have normal alignment. There is disc prosthesis at L4-5. There is posterior fusio n surgery at L4-5. The bony pelvis is intact. Hip joints are intact. There is no sign of free air. There is no evidence of a bowel obstruction. There is suggestion of some wall thickening of the mid sigmoid colon best seen on axial image 52 and coronal image 37. This appears to be also present on the CT scan yesterday. IMPRESSION: Large fluid collection in the pelvis anterior to the rectum could be pelvic abscess not changed clarissa red to yesterday. Possible annular constricting lesion of the mid sigmoid colon. There is some mild atelectasis at the posterior lung bases increased compared to yesterday.
--- NOTE | 2020-08-15 18:20 | XR ---
EXAMINATION TYPE: XR chest 1V portable DATE OF EXAM: 08/15/2020 COMPARISON: 05/04/2019 HISTORY: Short of breath TECHNIQUE: FINDINGS: Heart is normal. Lungs are clear of infiltrate. There is no heart failure. There are no hil ar masses. Costophrenic angles are fairly clear. There are chest leads. IMPRESSION: No active cardiopulmonary disease. Normal heart. No change.
--- NOTE | 2020-08-15 18:56 | PN ---
PROGRESS NOTE DATE OF SERVICE: 08/15/2020 This 50-year-old woman who was admitted with a significant abscess in the abdomen is being followed by Surgery. Infectious Disease is following the patient closely. lesion of the sigmoid colon and mild atelectasis also noted. The white count is 16.42. The patient is on empiric antibiotics. The patient also had possibly drug- induced lupus. PHYSICAL EXAMINATION: Alert and oriented x3. Pulse is 82, blood pressure 128/70, respiration 18, temperature 98.2, pulse ox 94% on room air. HEENT: Conjunctivae normal. NECK: No jugular venous distention. CARDIOVASCULAR SYSTEM: S1, S2 muffled. RESPIRATORY SYSTEM: Breath sounds diminished at the bases. No rhonchi. No crackles. ABDOMEN: Soft. Mild diffuse discomfort. No guarding. No rigidity. No mass palpable. LEGS: No edema. No swelling. NERVOUS SYSTEM: No focal deficit. LABS: WBC 16.42 and hemoglobin 11.2. ASSESSMENT: 1. Back pain, difficulty micturition, possibly acute abscess anterior to the rectum as well as posterior to the bladder, possibly secondary to Crohn's disease. 2. Crohn's disease, long-standing, possibly acute exacerbation. 3. Increased white count. 4. Hyponatremia. 5. Hypertension. 6. History of bowel obstruction and stricture possibly. 7. History of apparent drug-induced lupus recently. 8. History of back surgery. 9. History of bowel resection. 10.History of cholecystectomy. 11.History of anxiety. 12.History of nicotine dependence. 13.FULL CODE. RECOMMENDATIONS AND DISCUSSION: I recommend to continue current medications, continue with the monitoring, symptomatic treatment. Otherwise at this time I recommend continue with the antibiotics. Follow closely with multiple consultants. Guarded prognosis. Further recommendations to follow. MMODL / IJN: [id number] / REGGIE
[2020-08-15 20:53] LABS: RBC,Urine >182 /hpf (0-5); WBC,Urine >182 /hpf (0-5)
[2020-08-15] MEDS: amLODIPine 10 MG TAB PO SCH (21:04)
[2020-08-15] MEDS: LEVOFLOXACIN 750MG-D5W PMX 750 MG in DEXTROSE/WATER 1 150ML.BAG IVPB SCH (21:04)
[2020-08-15 22:15] LABS: Appearance,Urine Bloody (Clear); Color,Urine Red
[2020-08-16] MEDS: HYDROmorphone 1 MG/ML 1 ML SYRINGE IVP PRN ×7 (02:46→23:03)
[2020-08-16] MEDS: metroNIDAZOLE-NS PMX 500 MG in SALINE 1 100ML.BAG IVPB SCH ×3 (02:47→19:53)
[2020-08-16] MEDS: HEPARIN SODIUM,PORCINE 5,000 UNIT/ML 1 ML VIAL SQ SCH ×3 (04:34→20:52)
[2020-08-16] MEDS: NICOTINE 14MG/24HR PATCH TRANSDERM SCH (08:05)
[2020-08-16] MEDS: AZTREONAM 2 GM in SODIUM CHLORIDE 0.9% 100 ML IVPB SCH ×3 (08:05→23:55)
[2020-08-16] MEDS: CITALOPRAM HYDROBROMIDE 20 MG TAB PO SCH (08:06)
[2020-08-16] MEDS: PANTOPRAZOLE 40 MG/10 ML VIAL IVP SCH (08:06)
[2020-08-16] MEDS: LORATADINE 10 MG TAB PO SCH (08:06)
[2020-08-16] MEDS: LORazepam 0.5 MG TAB PO SCH ×2 (08:06→20:58)
[2020-08-16] MEDS: ONDANSETRON 4 MG/2 ML VIAL IVP PRN ×2 (08:16→19:44)
[2020-08-16] MEDS: IBUPROFEN 800 MG TAB PO PRN (10:20)
--- NOTE | 2020-08-16 11:06 | CT ---
EXAMINATION TYPE: CT discontinued procedure DATE OF EXAM: 08/16/2020 COMPARISON: CT 08/15/2020 HISTORY: pelvic abscess follow up CT DLP: 451 mGycm Automated exposure control for dose reduction was used. Helical imaging through the pelvis and a limi hi fashion. FINDINGS: There is been interval decompression of patient's pelvic abscess. Some residual air is present. Thick ened whitley are noted. Persistent thickening of the bowel in the pelvis the site of patient's prior scott rgery. There is some local inflammatory changes. No pelvic adenopathy. IMPRESSION: INTERVAL DECOMPRESSION OF PATIENT'S PELVIC ABSCESS. NO SIZABLE RESIDUAL FLUID COLLECTION. 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
[2020-08-16 11:30] LABS: Basophils # (A) 0.04 X 10*3/uL (0.00-0.10); Basophils % (A) 0.4 %; Eosinophils # (A) 0.15 X 10*3/uL (0.04-0.35); Eosinophils % (A) 1.5 %; HCT 34.4 % (37.2-46.3); HGB 11.1 g/dL (12.0-15.0); Lymphocytes # (A) 1.41 X 10*3/uL (0.90-5.00); Lymphocytes % (A) 13.7 %; MCH 32.4 pg (27.0-32.0); MCHC 32.3 g/dL (32.0-37.0); MCV 100.3 fL (80.0-97.0); Mean Platelet Volume 11.5 fL (9.5-12.2); Monocytes # (A) 0.56 X 10*3/uL (0.20-1.00); Monocytes % (A) 5.4 %; Neutrophils # (A) 8.07 X 10*3/uL (1.80-7.70); Neutrophils % (A) 78.5 %; Platelet Count 256 X 10*3/uL (140-440); RBC 3.43 X 10*6/uL (4.10-5.20); RDW 12.4 % (11.5-14.5); WBC 10.28 X 10*3/uL (4.50-10.00)
[2020-08-16 12:00] LABS: African American GFR (CKD) 129.9 (60.0-200.0); Anion Gap 5.7 mmol/L (4.00-12.00); Calcium 7.9 mg/dL (8.7-10.3); Carbon Dioxide 24.3 mmol/L (21.6-31.8); Non-African American GFR(CKD) 112.1 (60.0-200.0); Potassium 3.9 mmol/L (3.5-5.5)
--- NOTE | 2020-08-16 13:48 | P.PN ---
Subjective Progress Note Date: 08/16/20 CHIEF COMPLAINT: Abdominal pain HISTORY OF PRESENT ILLNESS: Patient is being followed for her abdominal pain. Patient has known history of Crohn's disease and had previous subtotal colectomy with ileorectal anastomosis. Patient had computed tomography scan of the abdomen and pelvis yesterday that showed large fluid collection in the pelvis anterior to the rectum could be pelvic abscess. Possible annular constricting lesion of the mid sigmoid colon. Last night patient felt a warm sensation in her lower pelvic region and then a large gush of puslike fluid from her urethra. And then proceeded to have blood in her urine. She had been reporting her pain about a 10 out of 10 yesterday and is now decreased to a 5 out of 10. She stating that she is able to urinate easier. She is not having to use as much force to urinate. She remains on antibiotics. Patient seen by interventional radiology and there is no sizable fluid collection to drain. Correlate for enteric vaginal fistula formation. Afebrile. WBC is down to 10.28 hemoglobin 11.1 PHYSICAL EXAM: VITAL SIGNS: Reviewed. GENERAL: Well-developed in no acute distress. HEENT: No sclera icterus. Extraocular movements grossly intact. Moist buccal mucosa. Head is atraumatic, normocephalic. ABDOMEN: Soft. Nondistended. Lower pelvic tenderness NEUROLOGIC: Alert and oriented. Cranial nerves II through XII grossly intact. ASSESSMENT: 1. Possible pelvic abscess related to ileorectal anastomosis PLAN: -Ordered repeat computed tomography scan of the abdomen and pelvis with oral contrast for tomorrow -Continue antibiotics -Continue supportive care Physician Information Analyst note has been reviewed by physician. Signing provider agrees with the documented findings, assessment, and plan of care. Objective - Vital Signs Vital signs: Vital Signs Temp 98.6 F 08/16/20 12:42 Pulse 75 08/16/20 12:42 Resp 16 08/16/20 12:42 BP 116/68 08/16/20 12:42 Pulse Ox 93 L 08/16/20 12:42 Intake & Output 08/15/20 08/16/20 08/16/20 18:59 06:59 18:59 Intake Total 1000 800 Output Total 300 Balance 1000 500 Intake: Intake, IV Titration 1000 800 Amount Aztreonam 2 gm In Sodium 100 200 Chloride 0.9% 100 ml @ 100 mls/hr IVPB ONCE ONE Rx#:[id number] Levofloxacin 750Mg-D5w 100 Pmx 750 mg In Dextrose/ Water 1 150ml.bag @ 100 mls/hr IVPB Q24H [facility] Rx#: [id number] Sodium Chloride 0.9% 1, 900 300 000 ml @ 75 mls/hr IV . [id number] [facility] Rx#:[id number] metroNIDAZOLE-NS PMX 500 200 mg In Saline 1 100ml.bag @ 100 mls/hr IVPB Q8H [facility] Rx#:[id number] Output: Urine 300 Other: Voiding Method Toilet Toilet # Voids 2 - Labs CBC & Chem 7: 08/16/20 07:35 08/16/20 07:35 Labs: Abnormal Lab Results - Last 24 Hours (Table) 08/15/20 08/16/20 08/16/20 Range/Units 20:10 07:35 07:35 WBC 10.28 H (4.50-10.00) X 10*3/uL RBC 3.43 L (4.10-5.20) X 10*6/uL Hgb 11.1 L (12.0-15.0) g/dL Hct 34.4 L (37.2-46.3) % MCV 100.3 H (80.0-97.0) fL MCH 32.4 H (27.0-32.0) pg Immature Gran # 0.05 H (0.00-0.04) X 10*3/uL Neutrophils # 8.07 H (1.80-7.70) X 10*3/uL Creatinine 0.5 L (0.6-1.5) mg/dL Calcium 7.9 L (8.7-10.3) mg/dL Urine Appearance Bloody H (Clear) Urine RBC >182 H (0-5) /hpf Urine WBC >182 H (0-5) /hpf Microbiology - Last 24 Hours (Table) 08/14/20 19:48 Blood Culture - Preliminary Blood No Growth after 24 hours
--- NOTE | 2020-08-16 15:32 | P.PN ---
Subjective Progress Note Date: 08/16/20 Principal diagnosis: crohns disease, abcess This is a 50-year-old pleasant white female patient with a known history of Crohn's disease diagnosed at age 20. She had previous subtotal colectomy with ileostomy and subsequent reversal. Subsequently developed tight ileorectal anas tomotic stricture with active Crohn's disease at the site of the stricture dilation. She was started on Remicade infusions about 6 months ago and had been receiving it every 8 weeks. She recently was seen by Dr. 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 At that time she was also started on a prednisone taper dose pack. The patient presented to emergency room with acute abdominal pain. CT of the abdomen and pelvis showed indeterminate low dense focus anterior to the suture line in the rectum posterior to the bladder and a represent fluid collection. Possible abscess was suggested by radiologist. Surgery was on consult and ordered interv entional radiology to drain the abscess and put a tube in place. However yesterday evening the patient states she felt a "pop "then felt vaginal wetness which she states she had a large amount of foul odor pus in her underwear by some vaginal bleeding. Objective - Vital Signs Vital signs: Vital Signs Temp 98.9 F 08/16/20 05:00 Pulse 86 08/16/20 10:33 Resp 16 08/16/20 10:33 BP 136/63 08/16/20 10:33 Pulse Ox 97 08/16/20 10:33 Intake & Output 08/15/20 08/16/20 08/16/20 18:59 06:59 18:59 Intake Total 1000 800 Output Total 300 Balance 1000 500 Intake: Intake, IV Titration 1000 800 Amount Aztreonam 2 gm In Sodium 100 200 Chloride 0.9% 100 ml @ 100 mls/hr IVPB ONCE ONE Rx#:[id number] Levofloxacin 750Mg-D5w 100 Pmx 750 mg In Dextrose/ Water 1 150ml.bag @ 100 mls/hr IVPB Q24H [facility] Rx#: [id number] Sodium Chloride 0.9% 1, 900 300 000 ml @ 75 mls/hr IV . [id number] [facility] Rx#:[id number] metroNIDAZOLE-NS PMX 500 200 mg In Saline 1 100ml.bag @ 100 mls/hr IVPB Q8H [facility] Rx#:[id number] Output: Urine 300 Other: Voiding Method Toilet Toilet # Voids 2 - Exam General appearance: The patient is alert, oriented, appears in no acute distress. HET: Head is normocephalic and atraumatic. Conjunctiva pink. Sclera anicteric. Neck: Supple without lymphadenopathy. Abdomen: Soft, or abdominal tenderness nondistended with bowel sounds. No guarding or rigidity. Extremities: Normal skin color and turgor. No pedal edema Neurological: No focal deficits. Alert and oriented 3. - Labs CBC & Chem 7: 08/16/20 07:35 08/16/20 07:35 Labs: Abnormal Lab Results - Last 24 Hours (Table) 08/15/20 08/16/20 Range/Units 20:10 07:35 WBC 10.28 H (4.50-10.00) X 10*3/uL RBC 3.43 L (4.10-5.20) X 10*6/uL Hgb 11.1 L (12.0-15.0) g/dL Hct 34.4 L (37.2-46.3) % MCV 100.3 H (80.0-97.0) fL MCH 32.4 H (27.0-32.0) pg Immature Gran # 0.05 H (0.00-0.04) X 10*3/uL Neutrophils # 8.07 H (1.80-7.70) X 10*3/uL Urine Appearance Bloody H (Clear) Urine RBC >182 H (0-5) /hpf Urine WBC >182 H (0-5) /hpf Microbiology - Last 24 Hours (Table) 08/14/20 19:48 Blood Culture - Preliminary Blood No Growth after 24 hours Assessment and Plan (1) Crohn's disease Narrative/Plan: Patient with a long-standing history of Crohn's disease diagnosed at age 20, status post subtotal colectomy with ileorectal anastomosis several years ago who developed recurrent Crohn's disease at the ileocolic anastomotic stricture for which he was started on Remicade infusions about 6-8 months ago. 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 Chavarria. She presented to the hospital with lower abdominal pain and pelvic pain. CT showed possible abscess behind the rectum anterior to the bladder. It was discussed with patient there is likely a vaginal fistula formation. Will reevaluate with CT of the abdomen tomorrow. Also discussed with patient there is a high probability in future for the need of ileostomy. Continue with current medical management, IV Solu-Medrol 1 mg every 8 hours has been added Current Visit: Yes Status: Acute Code(s): K50.90 - CROHN'S DISEASE, UNSPECIFIED, WITHOUT COMPLICATIONS SNOMED Code(s): 15009449 (2) Intra-abdominal abscess Narrative/Plan: Surgery on consult, repeat CT of abdomen ordered for tomorrow Current Visit: Yes Status: Acute Code(s): K65.1 - PERITONEAL ABSCESS SNOMED Code(s): 31331926 Plan: 1. Continue with antibiotics per recommendations from infectious disease 2. Appreciate recommendations from surgical services 3. Continue with MiraLAX daily 4. Repeat CBC with differential in the morning 5. Again discussed with patient regarding stopping Remicade and beginning Stelara on an outpatient basis once or abscess resolves. 6. Agree with repeat CT of the abdomen 7. Solu-Medrol 20 mg IV every 8 hours Thank you for this consult we will continue to follow closely Dr. Deyanira Russell I agree with the dictator's note, documented as a scribe by Nadine Vieira.
--- NOTE | 2020-08-16 16:20 | PN ---
PROGRESS NOTE DATE OF SERVICE: 08/16/2020 This 50-year-old woman who was admitted with back pain and difficulty with micturition had significant intraabdominal abscess which has spontaneously drained, and incomplete CT scan of the pelvis showed interval decompression of the pelvic abscess. No sizable residual fluid collection was noted. Enteric vaginal fistula formation is also suspected. Past medical history reviewed. REVIEW OF SYSTEMS: CARDIOVASCULAR SYSTEM: No angina, palpitations. RESPIRATORY SYSTEM: As mentioned earlier. GI: As mentioned earlier. : No dysuria or retention. NERVOUS SYSTEM: No numbness, weakness. CURRENT MEDICATIONS: Reviewed. They include Ventolin. Norvasc, aztreonam, Celexa, heparin, Dilaudid, Motrin, Claritin, Solu-Medrol, Habitrol, Zofran, Protonix, Restoril. PHYSICAL EXAMINATION: Patient is alert and oriented x3. Pulse 75, blood pressure 116/58, respiration 16, temperature 98.6, pulse ox 93% on room air. HEENT: Conjunctivae normal. NECK: No jugular venous distention. CARDIOVASCULAR SYSTEM: S1, S2 muffled. RESPIRATORY SYSTEM: Breath sounds diminished at the bases. No rhonchi. No crackles. ABDOMEN: Soft, non-tender. LEGS: No edema. No swelling. NERVOUS SYSTEM: No focal deficit. LABS: WBC 10.28, hemoglobin 11.1. Otherwise, CBC noted. ASSESSMENT: 1. Back pain, difficulty in micturition, possible acute pelvic abscess anterior to the rectum as well as posterior to the bladder, possibly secondary to Crohn's disease, status post spontaneous drainage. 2. Crohn's disease, longstanding, with possible acute exacerbation. 3. Increased white count. 4. Rule out colovaginal fistula. 5. Hyponatremia. 6. Hypertension. 7. History of bowel obstruction and stricture possibly. 8. History of apparent drug-induced lupus recently. 9. History of back surgery. 10.History of bowel resection. 11.History of cholecystectomy. 12.History of anxiety. 13.History of nicotine dependence. 14.FULL CODE. RECOMMENDATIONS AND DISCUSSION: I recommend to continue current medications, continue with the monitoring, symptomatic treatment. The abscess seems to be spontaneously drained, but the concern is about the possibility of any fistulous formation. We will follow the patient closely with Surgery at this point. Otherwise, I would also discuss with Gastroenterology for the need for any acute steroid treatment for Crohn's exacerbation. Otherwise, we will continue to monitor. Prognosis is guarded because of multiple complex medical issues. Further recommendations to follow. MMODL / IJN: [id number] /
[2020-08-16] MEDS: methylPREDNISolone SOD SUCCI 40 MG/ML 1 ML VIAL IV SCH ×2 (16:31→23:55)
[2020-08-16] MEDS: SODIUM CHLORIDE 0.9% 1,000 ML IV SCH ×2 (17:55→19:38)
[2020-08-16] MEDS: amLODIPine 10 MG TAB PO SCH (20:57)
[2020-08-16] MEDS: LEVOFLOXACIN 750MG-D5W PMX 750 MG in DEXTROSE/WATER 1 150ML.BAG IVPB SCH (20:59)
--- NOTE | 2020-08-16 22:41 | PN ---
PROGRESS NOTE DATE OF SERVICE: 08/16/2020 REASON FOR FOLLOWUP: Pelvic abscess, now with possible colovaginal fistula. INTERVAL HISTORY: The patient is currently afebrile. The patient's pelvic pain has slightly decreased in intensity; however, the patient did mention she noticed a popping sensation in the lower abdomen and subsequently she did have vaginal breathing and some foul-smelling drainage. The patient denies having any chest pain or shortness of breath or cough. PHYSICAL EXAMINATION: Blood pressure 122/74 with a pulse of 74, temperature 99.4. She is 90% on room air. General description is a middle-aged female lying in bed in no distress. RESPIRATORY SYSTEM: Unlabored breathing. Clear to auscultation anteriorly. HEART: S1, S2. Regular rate and rhythm. ABDOMEN: Soft. Mildly tender. No guarding. No rigidity. LABS: Hemoglobin is 11.1, white count 10.28, BUN of 10, creatinine 0.5. DIAGNOSTIC IMPRESSION AND PLAN: Patient with a pelvic abscess in this patient with a history of Crohn's disease, now with a concern for possible colovaginal fistula. She will benefit from an OB evaluation and possible surgical repair of when completely cleared of this infection. She is covered with Azactam and Flagyl because of her multiple antibiotic allergies; to continue and monitor clinical course closely. MMODL / IJN: [id number] /
[2020-08-17] MEDS: HYDROmorphone 1 MG/ML 1 ML SYRINGE IVP PRN ×7 (02:21→22:45)
[2020-08-17] MEDS: ONDANSETRON 4 MG/2 ML VIAL IVP PRN ×4 (02:29→21:21)
[2020-08-17] MEDS: metroNIDAZOLE-NS PMX 500 MG in SALINE 1 100ML.BAG IVPB SCH ×3 (03:29→19:44)
[2020-08-17] MEDS: HEPARIN SODIUM,PORCINE 5,000 UNIT/ML 1 ML VIAL SQ SCH ×3 (04:57→20:47)
[2020-08-17] MEDS: IOPAMIDOL CONTRAST (ORAL USE) VIAL PO PRN ×2 (07:09→08:04)
--- NOTE | 2020-08-17 08:54 | CT ---
EXAMINATION TYPE: CT abdomen pelvis wo con DATE OF EXAM: 08/17/2020 HISTORY: Mid to lower abdominal pain, history of abscess CT DLP: 352.2 mGycm. Automated Exposure Control for Dose Reduction was Utilized. TECHNIQUE: CT scan of the abdomen and pelvis is performed with oral but without IV contrast. COMPARISON: CT abdomen and pelvis 2 days ago older studies FINDINGS: Within the limitations of a non-contrast study, the following observations are made. LUNG BASES: New trace bilateral pleural effusions. Mild/moderate posterior basilar linear scarring an d/or atelectasis redemonstrated. LIVER/GB: Cholecystectomy clips redemonstrated. PANCREAS: No significant abnormality is seen. SPLEEN: No significant abnormality is seen. ADRENALS: No significant abnormality is seen. KIDNEYS: No significant abnormality is seen. BOWEL: The oral contrast does not reach the level of the rectum. There is some gas prominence of the mid to distal left colon extending into the proximal sigmoid colon. Poor distention with moderate to severe wall thickening mid sigmoid colon left pelvis on image 60 just before surgical sutures were th ere is gas prominent sigmoid rectal colon. Several studies show persistent poor distention and modera te to severe wall thickening for reference May 10, 2020 axial image 65 and August 15, 2020 image s 51 through 58 and current study axial image 61 suspicious for worsening partial occlusive stricture as there is dilated colon proximal to this segment. Barium enema study only showed mild narrowing at this level in May 04, 2019. Correlate clinically. Prior visualized rim-enhancing fluid collection posterior to the bladder and anterior to the rectum n ot identified, suspect successful interval treatment. GENITAL ORGANS: Uterus surgically absent . LYMPH NODES: No greater than 1cm abdominal or pelvic lymph nodes are appreciated. OSSEOUS STRUCTURES: Posterior decompression redemonstrated. Artificial disc material lower lumbar spi ne redemonstrated. Transitional type vertebra redemonstrated. Right-sided posterior fusion hardware r edemonstrated. OTHER: No significant additional abnormality is seen. IMPRESSION: Interval successful treatment of thin-walled rim-enhancing fluid collection in the pelvis . No persistent fluid collection currently.
[2020-08-17] MEDS: methylPREDNISolone SOD SUCCI 40 MG/ML 1 ML VIAL IV SCH ×3 (09:02→23:55)
[2020-08-17] MEDS: LORATADINE 10 MG TAB PO SCH (09:02)
[2020-08-17] MEDS: CITALOPRAM HYDROBROMIDE 20 MG TAB PO SCH (09:02)
[2020-08-17] MEDS: LORazepam 0.5 MG TAB PO SCH (09:02)
[2020-08-17] MEDS: PANTOPRAZOLE 40 MG/10 ML VIAL IVP SCH (09:03)
[2020-08-17] MEDS: AZTREONAM 2 GM in SODIUM CHLORIDE 0.9% 100 ML IVPB SCH ×3 (09:03→23:55)
[2020-08-17] MEDS: NICOTINE 14MG/24HR PATCH TRANSDERM SCH (09:03)
[2020-08-17 10:12] LABS: Basophils # (A) 0.01 X 10*3/uL (0.00-0.10); Basophils % (A) 0.1 %; Eosinophils # (A) 0 X 10*3/uL (0.04-0.35); Eosinophils % (A) 0 %; HCT 34.3 % (37.2-46.3); HGB 11.2 g/dL (12.0-15.0); Lymphocytes # (A) 0.53 X 10*3/uL (0.90-5.00); Lymphocytes % (A) 5.6 %; MCH 32.2 pg (27.0-32.0); MCHC 32.7 g/dL (32.0-37.0); MCV 98.6 fL (80.0-97.0); Mean Platelet Volume 11.1 fL (9.5-12.2); Monocytes # (A) 0.19 X 10*3/uL (0.20-1.00); Platelet Count 253 X 10*3/uL (140-440); RBC 3.48 X 10*6/uL (4.10-5.20); RDW 11.9 % (11.5-14.5); WBC 9.46 X 10*3/uL (4.50-10.00)
[2020-08-17 10:56] LABS: African American GFR (CKD) 139.8 (60.0-200.0); Anion Gap 7.9 mmol/L (4.00-12.00); BUN/Creat Ratio 17.5 Ratio (12.00-20.00); Carbon Dioxide 22.1 mmol/L (21.6-31.8); Non-African American GFR(CKD) 120.6 (60.0-200.0)
[2020-08-17] MEDS ORDERED: IV FLUID CONTINUATION 1,000 ML IV ONE ×2 (12:57)
[2020-08-17] MEDS ORDERED: PROPOFOL 10 MG/ML 20 ML VIAL IV ONE (13:00)
[2020-08-17] MEDS ORDERED: SODIUM CHLORIDE 0.9% 500 ML 500 ML IV ONE ×2 (13:04)
--- NOTE | 2020-08-17 13:22 | P.OP ---
Date of Procedure: 08/17/20 Preoperative Diagnosis: Pelvic abscess Postoperative Diagnosis: (Pelvic abscess with possible fistula to vagina Procedure(s) Performed: Colonoscopy Anesthesia: MAC Surgeon: Paddy aHrris Pathology: none sent Condition: stable Disposition: PACU Description of Procedure: The patient's placed on the endoscopy table in the lateral position. She received IV sedation. Manual vaginal exam was performed. No obvious inflammatory changes could to be palpated. Next the colonoscope was placed patient vagina. And on the lower lateral wall there appears to be evidence of an inflammatory reaction with possible fistula opening in the vagina wall. At this point the scope was withdrawn. Digital rectal exam was performed which revealed a very tight anastomotic stricture just proximal to the anus. The colonoscope was then placed patient anus. In the stricture was visualized. The stricture was very tight. The pediatric colonoscope could not be passed beyond the stricture. At this point the scope was withdrawn.
[2020-08-17] MEDS: SODIUM CHLORIDE 0.9% 1,000 ML IV SCH ×2 (13:38→21:15)
--- NOTE | 2020-08-17 14:04 | P.PN ---
Subjective Progress Note Date: 08/17/20 Principal diagnosis: crohns disease, abcess This is a 50-year-old pleasant white female patient with a known history of Crohn's disease diagnosed at age 20. She had previous subtotal colectomy with ileostomy and subsequent reversal. Subsequently developed tight ileorectal anas tomotic stricture with active Crohn's disease at the site of the stricture dilation. She was started on Remicade infusions about 6 months ago and had been receiving it every 8 weeks. She recently was seen by Dr. 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 At that time she was also started on a prednisone taper dose pack. The patient presented to emergency room with acute abdominal pain. CT of the abdomen and pelvis showed indeterminate low dense focus anterior to the suture line in the rectum posterior to the bladder and a represent fluid collection. Possible abscess was suggested by radiologist. Surgery consult interventional radiology for drainage and tube placement, however abscess drained on its own. Patient states she has not had any further vaginal drainage. And a repeat computed tomography scan which showing possible fistula to vagina. She states her abdominal pain has improved some. She denies any fever through the night. She scheduled to have colonoscopy today with Dr. Harris which showed a very tight and a stenotic stricture just proximal to the anus, pediatric colonoscope was unable to be passed beyond the stricture. The colonoscope was also placed in the patient's vagina and he reported the lower lateral wall there appear to be evidence of inflammatory reaction with possible fistula opening in the vagina wall. Objective - Vital Signs Vital signs: Vital Signs Temp 97.6 F 08/17/20 13:00 Pulse 70 08/17/20 13:00 Resp 16 08/17/20 13:00 BP 109/66 08/17/20 13:00 Pulse Ox 97 08/17/20 13:00 Intake & Output 08/16/20 08/17/20 08/17/20 18:59 06:59 18:59 Intake Total 1460 200 Balance 1460 200 Intake: IV 200 Intake, IV Titration 1100 Amount Aztreonam 2 gm In Sodium 100 Chloride 0.9% 100 ml @ 33 .3 mls/hr IVPB Q8HR [facility] Rx#:[id number] Sodium Chloride 0.9% 1, 900 000 ml @ 75 mls/hr IV . [id number] [facility] Rx#:[id number] metroNIDAZOLE-NS PMX 500 100 mg In Saline 1 100ml.bag @ 100 mls/hr IVPB Q8H [facility] Rx#:[id number] Oral 360 Other: Voiding Method Toilet Toilet Toilet # Voids 1 # Bowel Movements 0 - Exam General appearance: The patient is alert, oriented, appears in no acute distress. HET: Head is normocephalic and atraumatic. Conjunctiva pink. Sclera anicteric. Neck: Supple without lymphadenopathy. Abdomen: Soft, lower abdominal tenderness, nondistended with bowel sounds. No guarding or rigidity. Extremities: Normal skin color and turgor. No pedal edema Neurological: No focal deficits. Alert and oriented 3. - Labs CBC & Chem 7: 08/17/20 07:48 08/17/20 07:48 Labs: Abnormal Lab Results - Last 24 Hours (Table) 08/17/20 08/17/20 Range/Units 07:48 07:48 RBC 3.48 L (4.10-5.20) X 10*6/uL Hgb 11.2 L (12.0-15.0) g/dL Hct 34.3 L (37.2-46.3) % MCV 98.6 H (80.0-97.0) fL MCH 32.2 H (27.0-32.0) pg Neutrophils # 8.70 H (1.80-7.70) X 10*3/uL Lymphocytes # 0.53 L (0.90-5.00) X 10*3/uL Monocytes # 0.19 L (0.20-1.00) X 10*3/uL Eosinophils # 0 L (0.04-0.35) X 10*3/uL BUN 7.0 L (9.0-27.0) mg/dL Creatinine 0.4 L (0.6-1.5) mg/dL Glucose 133 H (70-110) mg/dL Calcium 8.0 L (8.7-10.3) mg/dL Microbiology - Last 24 Hours (Table) 08/14/20 19:48 Blood Culture - Preliminary Blood No Growth after 48 hours 08/16/20 Unknown Urine Culture - Preliminary Urine,Voided Assessment and Plan (1) Crohn's disease Narrative/Plan: Patient with a long-standing history of Crohn's disease diagnosed at age 20, status post subtotal colectomy with ileorectal anastomosis several years ago who developed recurrent Crohn's disease at the ileocolic anastomotic stricture for which he was started on Remicade infusions about 6-8 months ago. 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 Chavarria. She presented to the hospital with lower abdominal pain and pelvic pain. CT showed possible abscess behind the rectum anterior to the bladder. It was discussed with patient there is likely a vaginal fistula formation. Will reevaluate with CT of the abdomen tomorrow. Also discussed with patient there is a high probability in future for the need of ileostomy. Continue with current medical management, IV Solu-Medrol 1 mg every 8 hours has been added Patient underwent mask up a per Dr. Harris today with very tight anastomotic stricture just proximal to the anus. And possible fistula opening in the vaginal wall. Current Visit: Yes Status: Acute Code(s): K50.90 - CROHN'S DISEASE, UNSPECIFIED, WITHOUT COMPLICATIONS SNOMED Code(s): 66333880 (2) Intra-abdominal abscess Narrative/Plan: Surgery on consult PT CT of the abdomen shows decrease in abscess no further fluid. Current Visit: Yes Status: Acute Code(s): K65.1 - PERITONEAL ABSCESS SNOMED Code(s): 56718973 Plan: 1. Continue with antibiotics per recommendations from infectious disease 2. Patient status post colonoscopy per surgical services 3. Continue with MiraLAX daily 4. Repeat CBC with differential in the morning 5. It was discussed with patient regarding stopping Remicade and beginning Stelara on an outpatient basis once or abscess resolves. 6. CT of abdomen ordered and reviewed 7. Solu-Medrol 20 mg IV every 8 hours 8. Diet as tolerated Thank you for this consult we will continue to follow closely Dr. Deyanira Russell I agree with the dictator's note, documented as a scribe by Nadine Vieira.
--- NOTE | 2020-08-17 14:52 | PN ---
PROGRESS NOTE DATE OF SERVICE: 08/17/2020 REASON FOR FOLLOWUP: A pelvic abscess, question of colovaginal fistula. INTERVAL HISTORY: The patient is currently afebrile. She is breathing comfortably; still complaining of some belly pain, but no worsening. No further drainage through vagina. No nausea, no vomiting. No abdominal pain. PHYSICAL EXAMINATION: Blood pressure 103/58 with a pulse of 68, temperature 97.4. She is 93% on room air. General description is a middle-aged female lying in bed in no distress. RESPIRATORY SYSTEM: Unlabored breathing, clear to auscultation anteriorly. HEART: S1, S2. Regular rate and rhythm. ABDOMEN: Soft, mildly tender. No guarding or rigidity. LABS: Hemoglobin 11.2, white count 9.46, BUN of 7, creatinine 0.4. Blood culture so far negative. DIAGNOSTIC IMPRESSION AND PLAN: Patient with pelvic abscess, now with concern for possible colovaginal fistula. OB has been consulted. For colonoscopy this afternoon. Patient is covered with Azactam and Flagyl because of multiple antibiotic allergies. Continue supportive care. MMODL / IJN: [id number] /
--- NOTE | 2020-08-17 14:57 | P.OBCN ---
History of Present Illness Consult date: 08/17/20 Requesting physician: Bobbi Berrios Reason for consult: other (Possible colovaginal fistula) Chief complaint: Possible colovaginal fistula History of present illness: This is a pleasant 50-year-old that presented to the hospital emergency department on 08/14 with complaints of lower abdominal pain/back pain. Patient states she was concerned because she was having difficulty urinating. Patient does have a history of Crohn's disease and a large bowel resection, subsequent small bowel pouch. Patient was admitted and CAT scan was obtained. Possible rectal fistula was appreciated, patient was scheduled for drainage with interventional radiology when it spontaneously drained. She states the drainage was in the "front" not the rectal area. She states it was puslike with a strong odor. She noted hematuria following the gush. Patient has subsequently had repeat computed tomography scan on 08/17 with no persistent fluid collection noted. Patient was then scheduled for colonoscopy with Dr. Harris. Colonoscopy was unable to be performed secondary to known stricture. The scope was passed vaginally and inflammatory area was noted with suspicion for colovaginal fistula. Patient states she is feeling much improved today. Her biggest concern is ending up with a "pouch" she is understandably frustrated at this point. 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 Patient states she underwent total hysterectomy around age 29 secondary to severe endo metriosis and what sounded like bilateral endometriomas. Patient was on Premarin hormone therapy for a short-term but then discontinued as she felt well without it. She states prior to her hysterectomy her menstrual cycles were very heavy and painful. She was then diagnosed with subsequent endometriosis. Review of Systems Constitutional: Reports fatigue, Denies chills, Denies fever Ears, nose, mouth and throat: Denies headache Cardiovascular: Denies chest pain Respiratory: Denies dyspnea Gastrointestinal: Denies constipation, Denies diarrhea, Denies nausea, Denies vomiting Genitourinary: Denies Past Medical History Past Medical History: Hypertension Additional Past Medical History / Comment(s): chron's, bowel obstruction, Lupus History of Any Multi-Drug Resistant Organisms: None Reported Past Surgical History: Back Surgery, Bowel Resection, Section, Cholecystectomy, Hysterectomy Additional Past Surgical History / Comment(s): Colonoscopy, colostomy with reversal, 2 spinal fusions. Past Anesthesia/Blood Transfusion Reactions: No Reported Reaction Past Psychological History: Anxiety Smoking Status: Current every day smoker Past Alcohol Use History: Occasional Past Drug Use History: None Reported - Past Family History Mother Family Medical History: No Reported History Medications and Allergies Home Medications Medication Instructions Recorded Confirmed Type Citalopram Hydrobromide [CeleXA] 40 mg PO DAILY 05/03/19 08/14/20 History Ibuprofen [Motrin Ib] 800 mg PO Q8H PRN 05/03/19 08/14/20 History amLODIPine [Norvasc] 10 mg PO HS 09/19/19 08/14/20 History Albuterol Sulfate [Proair Hfa] 2 puff INHALATION RT-Q4H PRN 05/10/20 08/14/20 History LORazepam [Ativan] 0.5 mg PO BID 05/10/20 08/14/20 History Levocetirizine Dihydrochloride 5 mg PO DAILY 05/10/20 08/14/20 History [Xyzal] inFLIXimab [Remicade] 100 mg IVPB Q56D 05/10/20 08/14/20 History traZODone HCL [Desyrel] 100 mg PO HS PRN 05/10/20 08/14/20 History predniSONE See Taper PO DIRECTED #70 tab 05/13/20 08/14/20 Rx polyethylene glycoL 3350 [Miralax] 17 gm PO BID PRN 08/14/20 08/14/20 History Allergies Allergy/AdvReac Type Severity Reaction Status Date / Time Cephalosporins Allergy Rash/Hives Verified 08/14/20 17:59 codeine Allergy Dyspnea Verified 08/14/20 17:59 meperidine [From Demerol] Allergy Unknown Verified 08/14/20 17:59 morphine Allergy Unknown Verified 08/14/20 17:59 Penicillins Allergy Rash/Hives Verified 08/14/20 17:59 Sulfa (Sulfonamide Allergy Unknown Verified 08/14/20 17:59 Antibiotics) Exam Osteopathic Statement: *. No significant issues noted on an osteopathic structural exam other than those noted in the History and Physical/Consult. Vital Signs Temp Pulse Pulse Resp BP Pulse Ox 08/17/20 13:00 97.6 F 70 16 109/66 97 08/17/20 04:50 97.4 F L 68 18 103/58 93 L 08/16/20 20:37 99.4 F 74 16 122/74 08/16/20 16:26 98.5 F 65 65 16 119/67 Intake and Output 08/16/20 08/17/20 08/17/20 22:59 06:59 14:59 Intake Total 1100 200 Balance 1100 200 Intake: IV 200 Intake, IV Titration 1100 Amount Aztreonam 2 gm In Sodium 100 Chloride 0.9% 100 ml @ 33 .3 mls/hr IVPB Q8HR [facility] Rx#:[id number] Sodium Chloride 0.9% 1, 900 000 ml @ 75 mls/hr IV . 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 in no obvious distress, breathing is noted to be nonlabored, heart has a regular rate and rhythm, further exam is deferred Results Result Diagrams: 08/17/20 07:48 08/17/20 07:48 Abnormal Lab Results - Last 24 Hours (Table) 08/17/20 08/17/20 Range/Units 07:48 07:48 RBC 3.48 L (4.10-5.20) X 10*6/uL Hgb 11.2 L (12.0-15.0) g/dL Hct 34.3 L (37.2-46.3) % MCV 98.6 H (80.0-97.0) fL MCH 32.2 H (27.0-32.0) pg Neutrophils # 8.70 H (1.80-7.70) X 10*3/uL Lymphocytes # 0.53 L (0.90-5.00) X 10*3/uL Monocytes # 0.19 L (0.20-1.00) X 10*3/uL Eosinophils # 0 L (0.04-0.35) X 10*3/uL BUN 7.0 L (9.0-27.0) mg/dL Creatinine 0.4 L (0.6-1.5) mg/dL Glucose 133 H (70-110) mg/dL Calcium 8.0 L (8.7-10.3) mg/dL Microbiology - Last 24 Hours (Table) 08/14/20 19:48 Blood Culture - Preliminary Blood No Growth after 48 hours 08/16/20 Unknown Urine Culture - Preliminary Urine,Voided Assessment and Plan (1) Fistula Narrative/Plan: Chart is reviewed in detail and Dr. Adam notes are reviewed. He does note some inflammatory reaction on the lateral wall of the vagina with possible fistula. Well this finding can be pursued further with barium enema if she tolerates this I do believe she needs a colorectal surgeon for further evaluation. 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 While I appreciate the patient's frustration I do not feel a general aviation electronic warfare operator is the right person for this condition. A colorectal surgeon would most likely be the right physician for diagnosis and repair. Thank you for the consult of this kind patient, I wish I could help further.
[2020-08-17 15:35] VITALS: BMI 24.7
--- NOTE | 2020-08-17 15:40 | P.PN ---
Subjective Progress Note Date: 08/17/20 CHIEF COMPLAINT: Abdominal pain HISTORY OF PRESENT ILLNESS: Patient seen and examined with Dr. Black. Patient is being followed for her abdominal pain. Patient has known history of Crohn's disease and had previous subtotal colectomy with ileorectal anastomosis. Patient had a repeat computed tomography scan of the abdomen and pelvis that showed interval successful treatment of thin-walled rim-enhancing fluid collection in the pelvis. No persistent fluid collection currently. She also had colonoscopy with Dr. black with results showing pelvic abscess with possible fistula to vagina. PHYSICAL EXAM: VITAL SIGNS: Reviewed. GENERAL: Well-developed in no acute distress. HEENT: No sclera icterus. Extraocular movements grossly intact. Moist buccal mucosa. Head is atraumatic, normocephalic. ABDOMEN: Soft. Nondistended. NEUROLOGIC: Alert and oriented. Cranial nerves II through XII grossly intact. ASSESSMENT: 1. Pelvic abscess related to ileorectal anastomosis 2. Enteric fistula PLAN: -Dr. Black recommended ileostomy for the enteric fistula. However, patient refused ileostomy placement. 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 Signing provider agrees with the documented findings, assessment, and plan of care. Objective - Vital Signs Vital signs: Vital Signs Temp 97.6 F 08/17/20 13:00 Pulse 70 08/17/20 13:00 Resp 16 08/17/20 13:00 BP 109/66 08/17/20 13:00 Pulse Ox 97 08/17/20 13:00 Intake & Output 08/16/20 08/17/20 08/17/20 18:59 06:59 18:59 Intake Total 1460 200 Balance 1460 200 Intake: IV 200 Intake, IV Titration 1100 Amount Aztreonam 2 gm In Sodium 100 Chloride 0.9% 100 ml @ 33 .3 mls/hr IVPB Q8HR [facility] Rx#:[id number] Sodium Chloride 0.9% 1, 900 000 ml @ 75 mls/hr IV . [id number] [facility] Rx#:[id number] metroNIDAZOLE-NS PMX 500 100 mg In Saline 1 100ml.bag @ 100 mls/hr IVPB Q8H [facility] Rx#:[id number] Oral 360 Other: Voiding Method Toilet Toilet Toilet # Voids 1 # Bowel Movements 0 - Labs CBC & Chem 7: 08/17/20 07:48 08/17/20 07:48 Labs: Abnormal Lab Results - Last 24 Hours (Table) 08/17/20 08/17/20 Range/Units 07:48 07:48 RBC 3.48 L (4.10-5.20) X 10*6/uL Hgb 11.2 L (12.0-15.0) g/dL Hct 34.3 L (37.2-46.3) % MCV 98.6 H (80.0-97.0) fL MCH 32.2 H (27.0-32.0) pg Neutrophils # 8.70 H (1.80-7.70) X 10*3/uL Lymphocytes # 0.53 L (0.90-5.00) X 10*3/uL Monocytes # 0.19 L (0.20-1.00) X 10*3/uL Eosinophils # 0 L (0.04-0.35) X 10*3/uL BUN 7.0 L (9.0-27.0) mg/dL Creatinine 0.4 L (0.6-1.5) mg/dL Glucose 133 H (70-110) mg/dL Calcium 8.0 L (8.7-10.3) mg/dL Microbiology - Last 24 Hours (Table) 08/14/20 19:48 Blood Culture - Preliminary Blood No Growth after 48 hours 08/16/20 Unknown Urine Culture - Preliminary Urine,Voided
[2020-08-17] MEDS: LORazepam 1 MG TAB PO PRN ×2 (16:08→21:07)
--- NOTE | 2020-08-17 16:21 | PN ---
PROGRESS NOTE DATE OF SERVICE: 08/17/2020 This 50-year-old woman who was admitted with significant pain and swelling and pus and pelvic abscess anterior to rectum and posterior the bladder still complaining of abdominal discomfort. Dr. Farnco is concerned of possible colovaginal fistula as well. He has recommended VACUUM TESTER CANS consult at this time. White count is 9.46 and cultures are negative so far. The most repeat CT scan of the abdomen and pelvis has definitely improved. Multiple consultants are following the patient closely. PAST MEDICAL HISTORY: Reviewed. REVIEW OF SYSTEMS: CARDIOVASCULAR SYSTEM: No angina. RESPIRATORY SYSTEM: No cough. GI: As mentioned earlier. : As mentioned earlier. NERVOUS SYSTEM: No numbness or weakness. CURRENT MEDICATIONS: Current medications are reviewed and include Ventolin, aztreonam 2 grams IV q.8, heparin, Dilaudid, Motrin. Levaquin, Claritin, Ativan, Solu-Medrol, Narcan, Restoril, Desyrel. PHYSICAL EXAMINATION: Patient is alert and oriented x3. Pulse is 70, blood pressure 109/66, respirations 16, temperature 97.6, pulse ox 97% on room air. HEENT: Conjunctivae normal. NECK: No jugular venous distention. CARDIOVASCULAR: S1, S2 muffled. RESPIRATORY: Breath sounds diminished at the bases. No rhonchi. ABDOMEN: Soft, nontender. No mass palpable. LEGS: No edema. No swelling. NERVOUS SYSTEM: No focal deficits. LABS: WBC 9.46, hemoglobin 11.2. ASSESSMENT: 1. Back pain and difficulty in micturition, possible acute pelvic abscess anterior to the rectum and posterior to the bladder, possibly secondary to Crohn disease status post spontaneous drainage on IV antibiotics. 2. Crohn disease, longstanding with possible acute exacerbation on IV steroids. 3. Increased WBC. 4. Rule out colovaginal fistula. 5. Hyponatremia. 6. Hypertension. 7. History of bowel obstruction and stricture possibly. 8. History of apparent drug-induced lupus recently. 9. History of back surgery. 10.History of bowel resection. 11.History of cholecystectomy. 12.History of anxiety. 13.History of nicotine dependence. 14.FULL CODE. RECOMMENDATIONS AND DISCUSSION: Continue current medications. Continue symptomatic treatment. Continue with broad- spectrum IV antibiotics. Continue with IV steroids. Monitor blood sugars closely, otherwise closely follow with Gastroenterology and Infectious Disease. Guarded prognosis. Further recommendations to follow. MMODL / IJN: [id number] /
[2020-08-17] MEDS: amLODIPine 10 MG TAB PO SCH (21:07)
[2020-08-17] MEDS: LEVOFLOXACIN 750MG-D5W PMX 750 MG in DEXTROSE/WATER 1 150ML.BAG IVPB SCH (21:08)
[2020-08-18] MEDS: IBUPROFEN 800 MG TAB PO PRN (00:25)
[2020-08-18] MEDS: HEPARIN SODIUM,PORCINE 5,000 UNIT/ML 1 ML VIAL SQ SCH ×4 (03:07→22:12)
[2020-08-18] MEDS: metroNIDAZOLE-NS PMX 500 MG in SALINE 1 100ML.BAG IVPB SCH ×3 (03:09→19:51)
[2020-08-18] MEDS: HYDROmorphone 1 MG/ML 1 ML SYRINGE IVP PRN ×7 (03:10→23:20)
[2020-08-18] MEDS: ONDANSETRON 4 MG/2 ML VIAL IVP PRN ×4 (03:12→23:22)
[2020-08-18] MEDS: methylPREDNISolone SOD SUCCI 40 MG/ML 1 ML VIAL IV SCH ×3 (09:05→23:20)
[2020-08-18] MEDS: AZTREONAM 2 GM in SODIUM CHLORIDE 0.9% 100 ML IVPB SCH ×3 (09:09→23:20)
[2020-08-18] MEDS: CITALOPRAM HYDROBROMIDE 20 MG TAB PO SCH (09:09)
[2020-08-18] MEDS: LORATADINE 10 MG TAB PO SCH (09:09)
[2020-08-18] MEDS: NICOTINE 14MG/24HR PATCH TRANSDERM SCH ×2 (09:10→09:26)
[2020-08-18] MEDS: LORazepam 1 MG TAB PO PRN ×3 (09:28→20:50)
[2020-08-18] MEDS: PANTOPRAZOLE 40 MG/10 ML VIAL IVP SCH (09:29)
--- NOTE | 2020-08-18 13:31 | P.PN ---
Subjective Progress Note Date: 08/18/20 CHIEF COMPLAINT: Crohn's disease with pelvic abscess HISTORY OF PRESENT ILLNESS: The patient is a 50-year-old female status post spontaneous vaginal drainage of pelvic abscess due to Crohn's disease. She is status post colonoscopy 08/17/2020 with finding of vaginal fistula. She was seen by gynecology yesterday. She reports chronic liquid stools. No reports of abdominal pain. She was seen alongside GI team. She is tolerating full liquid diet. ROS: No reports of nausea and vomiting. No fevers or chills. No new chest pain. No productive sputum PHYSICAL EXAM: VITAL SIGNS: Reviewed CONSTITUTIONAL: Well developed and in no acute distress. EYES: Conjuctivae without sclera icterus. Extraocular movements grossly intact. HEAD, EARS, NOSE, THROAT: Moist buccal mucosa. Head is atraumatic, normocephalic. Hears conversational speech. No nasal drainage. NECK: Supple. No thyroidomegaly. RESPIRATORY: Non-labored respirations and equal bilateral excursions. CARDIOVASCULAR: Palpable 2+ radial pulses. Regular rate. Regular rhythm. ABDOMEN: No peritonitis.. MUSCULOSKELETAL: No gross deformity of the lower extremities noted. No clubbing. No cyanosis. SKIN: Good skin turgor. Well perfused. NEUROLOGIC: Cranial nerves II through XII grossly intact. No focal or lateralizing signs. PSYCH: Appropriate affect. Alert and oriented to person, place and time. CLINICAL LABS: White blood cell count normal from 10.28-9.46. Hemoglobin stable 11.2. STUDIES: CT of the abdomen and pelvis to 08/16/2020 independent reviewed demonstrating large intrapelvic abscess posterior to the bladder with inflammatory changes. This is my independent interpretation. ASSESSMENT: 1. Complicated Crohn's disease with pelvic abscess 2. Pelvic vaginal colorectal fistula PLAN: 1. Continue IV antibiotics 2. Agree with GI team for advancement of diet, low fiber 3. May need outpatient IV antibiotics including PICC line depending infectious disease recommendations. Objective - Vital Signs Vital signs: Vital Signs Temp 98.5 F 08/18/20 05:00 Pulse 70 08/18/20 05:00 Resp 15 08/18/20 05:00 BP 94/53 08/18/20 05:00 Pulse Ox 93 L 08/18/20 05:00 Intake & Output 08/17/20 08/18/20 08/18/20 18:59 06:59 18:59 Intake Total 200 1620 Balance 200 1620 Weight 63.503 kg Intake: IV 200 Intake, IV Titration 900 Amount Sodium Chloride 0.9% 1, 900 000 ml @ 75 mls/hr IV . [id number] [facility] Rx#:[id number] Oral 720 Other: Voiding Method Toilet Toilet # Voids 2 - Labs CBC & Chem 7: 08/17/20 07:48 08/17/20 07:48 Labs: Microbiology - Last 24 Hours (Table) 08/14/20 19:48 Blood Culture - Preliminary Blood No Growth after 72 hours 08/16/20 Unknown Urine Culture - Final Urine,Voided
[2020-08-18] MEDS: SODIUM CHLORIDE 0.9% 1,000 ML IV SCH ×2 (14:41→20:50)
--- NOTE | 2020-08-18 14:46 | PN ---
PROGRESS NOTE DATE OF SERVICE: 08/18/2020 This is a 50-year-old woman who was admitted with severe back pain and a pelvic abscess. Had spontaneous drainage. No chest pain. No palpitations. No fever. PHYSICAL EXAMINATION: GENERAL: Patient is alert and oriented times three. VITAL SIGNS: Pulse 62, blood pressure 170/60, respirations 16, temperature 98.8, pulse ox 94% on room air. HEENT: Conjunctivae normal. Oral mucosa moist. NECK: No jugular venous distention. No carotid bruits. No lymph node enlargement. RESPIRATORY: Breath sounds diminished at the bases. No rhonchi, no crackles. HEART: S1 and S2, muffled. ABDOMEN: Soft. Diffuse discomfort on the left side. EXTREMITIES: No edema, no swelling. NERVOUS: No focal deficits. LABS: WBC 9.6, hemoglobin 11.2. Other labs are noted. ASSESSMENT: 1. Back pain and difficulty with micturition, possible acute pelvic abscess anterior to the rectum and posture of the bladder, possibly secondary to Crohn disease and status post spontaneous drainage. On IV antibiotics. 2. Crohn disease, longstanding with possible acute exacerbation, on IV steroids. 3. Increased WBC. 4. Rule out colovaginal fistula. 5. Hyponatremia. 6. Hypertension. 7. History of bowel obstruction and stricture possibly. 8. History of apparent drug induced lupus recently. 9. History of back surgery. 10.History of bowel resection. 11.History of cholecystectomy. 12.History of anxiety. 13.Nicotine dependence. 14.FULL CODE. RECOMMENDATIONS AND DISCUSSION: I recommend to continue current management and symptomatic treatment. Continue the antibiotics. Continue with IV steroids. Otherwise COKE DRAWER evaluation and recommendation appreciated. Other than that, I would follow the cultures closely. Closely monitor. Guarded prognosis because of multiple complex medical issues. Further recommendations to follow. Otherwise, follow with Surgery and Gastroenterology. MMODL / IJN: [id number] /
--- NOTE | 2020-08-18 19:26 | PN ---
PROGRESS NOTE DATE OF SERVICE: 08/18/2020 REASON FOR FOLLOWUP: Pelvis abscess with colovaginal fistula. INTERVAL HISTORY: Patient is currently afebrile. Patient is breathing comfortably. No chest pain, shortness of breath or cough. Abdominal pain has improved. No nausea. No vomiting. PHYSICAL EXAMINATION: Blood pressure 113/68 with a pulse of 52, temperature 98.8. She is 95% on room air. General description is a middle-aged female lying in bed in no distress. Respiratory system: Unlabored breathing. Clear to auscultation anteriorly. Heart S1, S2. Regular rate and rhythm. ABDOMEN: Soft, no tenderness. LABS: Hemoglobin 11.8, white count 9.46, BUN of 7, creatinine 0.4. DIAGNOSTIC IMPRESSION AND PLAN: Patient with pelvic abscess. 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 She will need surgery for repair of the fistula in order to completely heal it. Patient is covered with Azactam and Flagyl, to continue because of multiple antibiotic allergies. Continue supportive care. MMODL / IJN: [id number] /
[2020-08-18] MEDS: amLODIPine 10 MG TAB PO SCH (20:50)
[2020-08-19] MEDS: metroNIDAZOLE-NS PMX 500 MG in SALINE 1 100ML.BAG IVPB SCH ×3 (02:35→19:30)
[2020-08-19] MEDS: LORATADINE 10 MG TAB PO SCH (08:24)
[2020-08-19] MEDS: LORazepam 1 MG TAB PO PRN ×3 (08:24→20:59)
[2020-08-19] MEDS: CITALOPRAM HYDROBROMIDE 20 MG TAB PO SCH (08:24)
[2020-08-19] MEDS: ONDANSETRON 4 MG/2 ML VIAL IVP PRN ×3 (08:24→20:59)
[2020-08-19] MEDS: HYDROmorphone 1 MG/ML 1 ML SYRINGE IVP PRN ×4 (08:24→19:29)
[2020-08-19] MEDS: methylPREDNISolone SOD SUCCI 40 MG/ML 1 ML VIAL IV SCH ×2 (08:24→15:14)
[2020-08-19] MEDS: AZTREONAM 2 GM in SODIUM CHLORIDE 0.9% 100 ML IVPB SCH ×2 (08:25→15:16)
[2020-08-19] MEDS: NICOTINE 14MG/24HR PATCH TRANSDERM SCH (08:25)
[2020-08-19] MEDS: polyethylene glycoL 3350 17 GM POWD.PACK PO PRN (08:43)
--- NOTE | 2020-08-19 08:48 | P.PN ---
Subjective Progress Note Date: 08/18/20 Principal diagnosis: Crohn's disease, abdominal pain Patient is seen lying in bed today reporting improvement in abdominal pain. She continues to have bowel movements. She is asking for diet to be advanced. 50-year-old pleasant white female patient with a known history of Crohn's disease diagnosed at age 20. She had previous subtotal colectomy with ileostomy and subsequent reversal. Subsequently developed tight ileorectal anastomotic stricture with active Crohn's disease at the site of the stricture dilation. She was started on Remicade infusions about 6 months ago and had been receiving it every 8 weeks. She recently was seen by Dr. 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 At that time she was also started on a prednisone taper dose pack. The patient presented to emergency room with acute abdominal pain. CT of the abdomen and pelvis showed indeterminate low dense focus anterior to the suture line in the rectum posterior to the bladder and a represent fluid collection. Possible abscess was suggested by radiologist. Surgery consult interventional radiology for drainage and tube placement, however abscess drained on its own. Patient states she has not had any further vaginal drainage. And a repeat computed tomography scan which showing possible fistula to vagina. She states her abdominal pain has improved some. She denies any fever through the night. She scheduled to have colonoscopy today with Dr. Harris which showed a very tight and a stenotic stricture just proximal to the anus, pediatric colonoscope was unable to be passed beyond the stricture. The colonoscope was also placed in the patient's vagina and he reported the lower lateral wall there appear to be evidence of inflammatory reaction with possible fistula opening in the vagina wall. Objective - Vital Signs Vital signs: Vital Signs Temp 98.5 F 08/18/20 05:00 Pulse 70 08/18/20 05:00 Resp 15 08/18/20 05:00 BP 94/53 08/18/20 05:00 Pulse Ox 93 L 08/18/20 05:00 Intake & Output 08/17/20 08/18/20 08/18/20 18:59 06:59 18:59 Intake Total 200 1620 Balance 200 1620 Weight 63.503 kg Intake: IV 200 Intake, IV Titration 900 Amount Sodium Chloride 0.9% 1, 900 000 ml @ 75 mls/hr IV . [id number] [facility] Rx#:[id number] Oral 720 Other: Voiding Method Toilet Toilet # Voids 2 - Exam On physical examination, patient appears comfortable in no apparent distress. HEAD: Normocephalic, atraumatic. EYES: No scleral icterus. No conjunctival injection. MOUTH: No lesions, tongue midline. NECK: Trachea midline, no gross abnormalities. ABDOMEN: Soft, nontender to palpation. Bowel sounds are positive. No organomegaly. No guarding or rigidity. EXTREMITIES: No pedal edema. SKIN: No rashes, no jaundice. NEUROLOGIC: Alert and oriented x3. No focal deficits. - Labs CBC & Chem 7: 08/17/20 07:48 08/17/20 07:48 Labs: Microbiology - Last 24 Hours (Table) 08/14/20 19:48 Blood Culture - Preliminary Blood No Growth after 72 hours 08/16/20 Unknown Urine Culture - Final Urine,Voided Assessment and Plan (1) Crohn's disease Narrative/Plan: 50-year-old pleasant white female patient with a known history of Crohn's disease diagnosed at age 20. She had previous subtotal colectomy with ileostomy and subsequent reversal. Subsequently developed tight ileorectal anastomotic stricture with active Crohn's disease at the site of the stricture dilation. She was started on Remicade infusions about 6 months ago and had been receiving it every 8 weeks. She recently was seen by Dr. 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 At that time she was also started on a prednisone taper dose pack. The patient presented to emergency room with acute abdominal pain. CT of the abdomen and pelvis showed indeterminate low dense focus anterior to the suture line in the rectum posterior to the bladder and a represent fluid collection. Possible abscess was suggested by radiologist. Surgery consult interventional radiology for drainage and tube placement, however abscess drained on its own. Patient states she has not had any further vaginal drainage. And a repeat computed tomography scan which showing possible fistula to vagina. She underwent a colonoscopy with Dr. Harris which showed a very tight and a stenotic stricture just proximal to the anus, pediatric colonoscope was unable to be passed beyond the stricture. The colonoscope was also placed in the patient's vagina and he reported the lower lateral wall there appear to be evidence of inflammatory reaction with possible fistula opening in the vagina wall. Current Visit: Yes Status: Acute Code(s): K50.90 - CROHN'S DISEASE, UNSPECIFIED, WITHOUT COMPLICATIONS SNOMED Code(s): 22872763 (2) Fistula Current Visit: Yes Status: Acute Code(s): L98.8 - OTH DISRD OF THE SKIN AND SUBCUTANEOUS TISSUE SNOMED Code(s): 757433635 (3) Intra-abdominal abscess Current Visit: Yes Status: Acute Code(s): K65.1 - PERITONEAL ABSCESS SNOMED Code(s): 31436208 Plan: Supportive care Case discussed with the surgical service and okay to advance diet Continue broad-spectrum antibiotic therapy Continue Solu-Medrol 20 mg every 8 hours Appreciate recommendations the surgical service Case discussed with the patient who will follow up with colorectal surgery in the outpatient setting with consideration for surgical intervention given concern for fistula Thank you for allowing us to participate in the care of the patient
[2020-08-19] MEDS: PANTOPRAZOLE 40 MG/10 ML VIAL IVP SCH (10:37)
[2020-08-19 11:26] LABS: Basophils % (A) 0 %; Eosinophils % (A) 0 %; HCT 37.5 % (34.0-46.0); HGB 12.2 gm/dL (11.4-16.0); Lymphocytes # (A) 0.8 k/uL (1.0-4.8); Lymphocytes % (A) 5 %; MCH 31.7 pg (25.0-35.0); MCHC 32.5 g/dL (31.0-37.0); MCV 97.5 fL (80.0-100.0); Mean Platelet Volume 7.6; Monocytes # (A) 0.6 k/uL (0-1.0); Monocytes % (A) 4 %; Neutrophils # (A) 14.5 k/uL (1.3-7.7); Neutrophils % (A) 89 %; Platelet Count 341 k/uL (150-450); RBC 3.84 m/uL (3.80-5.40); RDW 12.7 % (11.5-15.5); WBC 16.2 k/uL (3.8-10.6)
[2020-08-19] MEDS: HEPARIN SODIUM,PORCINE 5,000 UNIT/ML 1 ML VIAL SQ SCH ×2 (11:30→20:56)
[2020-08-19 11:33] LABS: ALT 19 U/L (4-34); AST 19 U/L (14-36); African American GFR (CKD) >90 (>60 ml/min/1.73 sqM); Albumin 3.1 g/dL (3.5-5.0); Albumin/Globulin Ratio 1.1; Alkaline Phosphatase 52 U/L (38-126); Anion Gap 5 mmol/L; Blood Urea Nitrogen 7 mg/dL (7-17); Calcium 8.5 mg/dL (8.4-10.2); Carbon Dioxide 27 mmol/L (22-30); Chloride 106 mmol/L (98-107); Globulin 2.8 g/dL; Glucose 112 mg/dL (74-99); Non-African American GFR(CKD) >90 (>60 ml/min/1.73 sqM); Potassium 3.8 mmol/L (3.5-5.1); Sodium 138 mmol/L (137-145); Total Bilirubin 0.3 mg/dL (0.2-1.3); Total Protein 5.9 g/dL (6.3-8.2)
--- NOTE | 2020-08-19 13:41 | P.PN ---
Subjective Progress Note Date: 08/19/20 CHIEF COMPLAINT: Crohn's disease with pelvic abscess HISTORY OF PRESENT ILLNESS: The patient is a 50-year-old female status post spontaneous vaginal drainage of pelvic abscess due to Crohn's disease. She is status post colonoscopy 08/17/2020 with finding of vaginal fistula. She is seeking a second opinion for management of her Crohn's prior to an ileostomy. She reports new nausea overnight as she requested advancement of her diet. "I am taking it slow." No fevers or chills. She tolerated her meat and carrots for lunch. ROS: No vomiting. No fevers or chills. No new chest pain. No productive sputum PHYSICAL EXAM: VITAL SIGNS: Reviewed CONSTITUTIONAL: Well developed and in no acute distress. EYES: Conjuctivae without sclera icterus. Extraocular movements grossly intact. HEAD, EARS, NOSE, THROAT: Moist buccal mucosa. Head is atraumatic, normocephalic. Hears conversational speech. No nasal drainage. NECK: Supple. No thyroidomegaly. RESPIRATORY: Non-labored respirations and equal bilateral excursions. CARDIOVASCULAR: Palpable 2+ radial pulses. ABDOMEN: No peritonitis. MUSCULOSKELETAL: No gross deformity of the lower extremities noted. No clubbing. No cyanosis. SKIN: Good skin turgor. Well perfused. NEUROLOGIC: Cranial nerves II through XII grossly intact. No focal or lateralizing signs. PSYCH: Appropriate affect. Alert and oriented to person, place and time. CLINICAL LABS: White blood cell count elevated from 9.46 to over 16.0. Hemoglobin increased from 11.2 to over 12.0 ASSESSMENT: 1. Complicated Crohn's disease with pelvic abscess 2. Pelvic vaginal colorectal fistula PLAN: 1. Her WBC has elevated. I did discuss with her that this is a new change from yesterday. 2. She may need additional imaging 3. Per patient request, she does not want surgical intervention and is seeking a second opinion with a Crohn's specialist. Objective - Vital Signs Vital signs: Vital Signs Temp 98.0 F 08/19/20 12:25 Pulse 58 L 08/19/20 12:25 Resp 15 08/19/20 12:25 BP 120/65 08/19/20 12:25 Pulse Ox 92 L 08/19/20 12:25 Intake & Output 08/18/20 08/19/20 08/19/20 18:59 06:59 18:59 Intake Total 3300 1560 360 Balance 3300 1560 360 Intake: Intake, IV Titration 900 1200 Amount Aztreonam 2 gm In Sodium 200 100 Chloride 0.9% 100 ml @ 33 .3 mls/hr IVPB Q8HR [facility] Rx#:[id number] Sodium Chloride 0.9% 1, 700 900 000 ml @ 75 mls/hr IV . [id number] [facility] Rx#:[id number] metroNIDAZOLE-NS PMX 500 200 mg In Saline 1 100ml.bag @ 100 mls/hr IVPB Q8H [facility] Rx#:[id number] Oral 2400 360 360 Other: Voiding Method Toilet Toilet Toilet # Voids 3 3 1 # Bowel Movements 1 0 1 - Labs CBC & Chem 7: 08/19/20 11:01 08/19/20 11:01 Labs: Abnormal Lab Results - Last 24 Hours (Table) 08/19/20 08/19/20 Range/Units 11:01 11:01 WBC 16.2 H (3.8-10.6) k/uL Neutrophils # 14.5 H (1.3-7.7) k/uL Lymphocytes # 0.8 L (1.0-4.8) k/uL Glucose 112 H (74-99) mg/dL Total Protein 5.9 L (6.3-8.2) g/dL Albumin 3.1 L (3.5-5.0) g/dL Microbiology - Last 24 Hours (Table) 08/14/20 19:48 Blood Culture - Preliminary Blood No Growth after 96 hours Assessment and Plan (1) Recto-vaginal fistula Current Visit: Yes Status: Acute Code(s): N82.3 - FISTULA OF VAGINA TO LARGE INTESTINE SNOMED Code(s): 77476743 (2) Leukocytosis Current Visit: Yes Status: Acute Code(s): D72.829 - ELEVATED WHITE BLOOD CE LL COUNT, UNSPECIFIED SNOMED Code(s): 429360658 (3) Crohn's disease Current Visit: Yes Status: Acute Code(s): K50.90 - CROHN'S DISEASE, UNSPECIFIED, WITHOUT COMPLICATIONS SNOMED Code(s): 47091178 (4) Fistula Current Visit: Yes Status: Acute Code(s): L98.8 - OTH DISRD OF THE SKIN AND SUBCUTANEOUS TISSUE SNOMED Code(s): 359706645 (5) Intra-abdominal abscess Current Visit: Yes Status: Acute Code(s): K65.1 - PERITONEAL ABSCESS SNOMED Code(s): 15543369
[2020-08-19] MEDS: SODIUM CHLORIDE 0.9% 1,000 ML IV SCH (15:16)
--- NOTE | 2020-08-19 15:48 | PN ---
PROGRESS NOTE DATE OF SERVICE: 08/19/2020. This 50-year-old woman admitted with back pain and pelvic abscess, is being closely monitored. No chest pain. No palpitations. No fever. Surgery and Infectious Disease following the patient closely. EXAM: Alert and oriented times three. Pulse 58. Blood pressure 128/64. Respiration 15, temperature 98 degrees, pulse ox 98% on room air. HEENT: Conjunctivae normal. NECK: No JVD. CARDIOVASCULAR: S1, S2. RESPIRATIONS: Breath sounds diminished in the bases. No rhonchi. No crackles. ABDOMEN: Soft, nontender. No mass palpable. LEGS are no edema, no swelling. NERVOUS SYSTEM: No focal deficits. LABS: WBC 16.2. ASSESSMENT: 1. Back pain and difficulty in micturition. Possible acute pelvic abscess anterior to the rectum as well as posterior to the bladder, possibly secondary to Crohn's disease and status post spontaneous drainage on IV antibiotics. 2. Crohn's disease, longstanding with possible acute exacerbation IV steroids. 3. Increased WBC. 4. Rule out colovaginal fistula. 5. Hyponatremia. 6. Hypertension. 7. History of bowel obstruction. 8. Stricture possibly. 9. History of apparent drug-induced lupus recently. 10.History of back surgery. 11.History of bowel resection. 12.History of cholecystectomy. 13.History of anxiety. 14.Nicotine dependence. 15.FULL CODE. RECOMMENDATIONS AND DISCUSSION: I recommend to continue current medications, management and symptomatic treatment. Otherwise continue with broad-spectrum IV antibiotics. Patient is on Azactam. The patient also on a small dose of IV steroids also. Prognosis guarded because of multiple complex medical issues. Further recommendations to follow. MMODL / IJN: [id number] /
--- NOTE | 2020-08-19 16:39 | P.PN ---
Subjective Progress Note Date: 08/19/20 Principal diagnosis: Crohn's disease, abdominal pain Patient is seen lying in bed today reporting improvement in abdominal pain. She continues to have bowel movements. She had some nausea this morning however overall has tolerated diet. Objective - Vital Signs Vital signs: Vital Signs Temp 97.8 F 08/19/20 05:10 Pulse 60 08/19/20 05:10 Resp 16 08/19/20 05:10 BP 113/65 08/19/20 05:10 Pulse Ox 92 L 08/19/20 05:10 Intake & Output 08/18/20 08/19/20 08/19/20 18:59 06:59 18:59 Intake Total 3300 1560 Balance 3300 1560 Intake: Intake, IV Titration 900 1200 Amount Aztreonam 2 gm In Sodium 200 100 Chloride 0.9% 100 ml @ 33 .3 mls/hr IVPB Q8HR [facility] Rx#:[id number] Sodium Chloride 0.9% 1, 700 900 000 ml @ 75 mls/hr IV . [id number] [facility] Rx#:[id number] metroNIDAZOLE-NS PMX 500 200 mg In Saline 1 100ml.bag @ 100 mls/hr IVPB Q8H [facility] Rx#:[id number] Oral 2400 360 Other: Voiding Method Toilet Toilet # Voids 3 3 # Bowel Movements 1 0 - Exam On physical examination, patient appears comfortable in no apparent distress. HEAD: Normocephalic, atraumatic. EYES: No scleral icterus. No conjunctival injection. MOUTH: No lesions, tongue midline. NECK: Trachea midline, no gross abnormalities. ABDOMEN: Soft, nontender to palpation. Bowel sounds are positive. No organomegaly. No guarding or rigidity. EXTREMITIES: No pedal edema. SKIN: No rashes, no jaundice. NEUROLOGIC: Alert and oriented x3. No focal deficits. - Labs CBC & Chem 7: 08/19/20 11:01 08/19/20 11:01 Labs: Microbiology - Last 24 Hours (Table) 08/14/20 19:48 Blood Culture - Preliminary Blood No Growth after 96 hours Assessment and Plan (1) Crohn's disease Narrative/Plan: 50-year-old pleasant white female patient with a known history of Crohn's disease diagnosed at age 20. She had previous subtotal colectomy with ileostomy and subsequent reversal. Subsequently developed tight ileorectal anastomotic stricture with active Crohn's disease at the site of the stricture dilation. She was started on Remicade infusions about 6 months ago and had been receiving it every 8 weeks. She recently was seen by Dr. 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 At that time she was also started on a prednisone taper dose pack. The patient presented to emergency room with acute abdominal pain. CT of the abdomen and pelvis showed indeterminate low dense focus anterior to the suture line in the rectum posterior to the bladder and a represent fluid collection. Possible abscess was suggested by radiologist. Surgery consult interventional radiology for drainage and tube placement, however abscess drained on its own. Patient states she has not had any further vaginal drainage. And a repeat computed tomography scan which showing possible fistula to vagina. She underwent a colonoscopy with Dr. Harris which showed a very tight and a stenotic stricture just proximal to the anus, pediatric colonoscope was unable to be passed beyond the stricture. The colonoscope was also placed in the patient's vagina and he reported the lower lateral wall there appear to be evidence of inflammatory reaction with possible fistula opening in the vagina wall. Current Visit: Yes Status: Acute Code(s): K50.90 - CROHN'S DISEASE, UNSPECIFIED, WITHOUT COMPLICATIONS SNOMED Code(s): 55730844 (2) Fistula Current Visit: Yes Status: Acute Code(s): L98.8 - OTH DISRD OF THE SKIN AND SUBCUTANEOUS TISSUE SNOMED Code(s): 607084943 (3) Intra-abdominal abscess Current Visit: Yes Status: Acute Code(s): K65.1 - PERITONEAL ABSCESS SNOMED Code(s): 74303589 Plan: Supportive care low fiber diet as tolerated Continue broad-spectrum antibiotic therapy Continue Solu-Medrol 20 mg every 8 hours Appreciate recommendations the surgical service Case discussed with the patient who will follow up with colorectal surgery in the outpatient setting with consideration for surgical intervention given concern for fistula Thank you for allowing us to participate in the care of the patient
[2020-08-19] MEDS: amLODIPine 10 MG TAB PO SCH (20:59)
--- NOTE | 2020-08-19 23:41 | PN ---
PROGRESS NOTE DATE OF SERVICE: 08/19/2020. REASON FOR FOLLOW UP: Pelvic abscess, colovaginal fistula. INTERVAL HISTORY: The patient is currently afebrile. The patient abdominal pain is currently controlled. Denies having any chest pain, shortness of breath or cough. No vaginal drainage. No diarrhea. PHYSICAL EXAMINATION: Blood pressure 130/72 with a pulse of 61, temperature 98.5. She is 94% on room air. General description is a middle-aged female lying in bed in no distress. RESPIRATORY SYSTEM: Unlabored breathing. Clear to auscultation anteriorly. HEART: S1, S2. Regular rate and rhythm. ABDOMEN: Soft, no tenderness. LABS: Hemoglobin is 12.1, white count of 16.2, creatinine 0.55. DIAGNOSTIC IMPRESSION AND PLAN: Patient with pelvic abscess, now with evidence of colovaginal fistula. White count jumped more likely because of steroid effect. The patient is currently on Azactam and Flagyl to continue. May need transfer to tertiary care for repair of the colovaginal fistula. Questions were answered. MMODL / IJN: [id number] /
[2020-08-20] MEDS: AZTREONAM 2 GM in SODIUM CHLORIDE 0.9% 100 ML IVPB SCH ×3 (00:14→16:13)
[2020-08-20] MEDS: methylPREDNISolone SOD SUCCI 40 MG/ML 1 ML VIAL IV SCH ×3 (00:14→16:13)
[2020-08-20] MEDS: HYDROmorphone 1 MG/ML 1 ML SYRINGE IVP PRN ×7 (00:14→22:08)
[2020-08-20] MEDS: metroNIDAZOLE-NS PMX 500 MG in SALINE 1 100ML.BAG IVPB SCH ×3 (03:10→19:05)
[2020-08-20] MEDS: HEPARIN SODIUM,PORCINE 5,000 UNIT/ML 1 ML VIAL SQ SCH ×3 (03:47→20:49)
[2020-08-20] MEDS: CITALOPRAM HYDROBROMIDE 20 MG TAB PO SCH (08:15)
[2020-08-20] MEDS: LORATADINE 10 MG TAB PO SCH (08:15)
[2020-08-20] MEDS: PANTOPRAZOLE 40 MG/10 ML VIAL IVP SCH (08:16)
[2020-08-20] MEDS: NICOTINE 14MG/24HR PATCH TRANSDERM SCH (08:16)
[2020-08-20] MEDS: ONDANSETRON 4 MG/2 ML VIAL IVP PRN ×3 (08:20→22:08)
[2020-08-20] MEDS: polyethylene glycoL 3350 17 GM POWD.PACK PO PRN (08:33)
[2020-08-20] MEDS: LORazepam 1 MG TAB PO PRN ×3 (08:33→22:08)
--- NOTE | 2020-08-20 10:49 | P.PN ---
Subjective Progress Note Date: 08/20/20 CHIEF COMPLAINT: Abdominal pain HISTORY OF PRESENT ILLNESS: Patient is being followed for her abdominal pain. Patient has known history of Crohn's disease and had previous subtotal colectomy with ileorectal anastomosis. Patient had a repeat computed tomography scan of the abdomen and pelvis that showed interval successful treatment of thin-walled rim-enhancing fluid collection in the pelvis. No persistent fluid collection currently. She also had colonoscopy with Dr. Harris with results showing pelvic abscess with possible fistula to vagina. Patient does report some lower abdominal pain and lower back pain. She's not sure if this is her usual pain from her Crohn's. She denies any nausea or vomiting. She is tolerating diet. She is having bowel movements. She is passing gas. She's had no further vaginal discharge. Denies any hematuria. Currently on a low fiber diet. Afebrile. CBC pending. PHYSICAL EXAM: VITAL SIGNS: Reviewed. GENERAL: Well-developed in no acute distress. HEENT: No sclera icterus. Extraocular movements grossly intact. Moist buccal mucosa. Head is atraumatic, normocephalic. ABDOMEN: Soft. Nondistended. NEUROLOGIC: Alert and oriented. Cranial nerves II through XII grossly intact. ASSESSMENT: 1. Pelvic abscess 2. Vaginal colorectal fistula 3. History of Crohn's PLAN: -Dr. Harris recommended ileostomy for the enteric fistula. However, patient refused ileostomy placement. -Repeat computed tomography scan of abdomen and pelvis with oral and IV contrast -Continue antibiotics -Continue supportive care Physician [employer] note has been reviewed by physician. Signing provider agrees with the documented findings, assessment, and plan of care. Objective - Vital Signs Vital signs: Vital Signs Temp 97.7 F 08/20/20 04:20 Pulse 51 L 08/20/20 04:20 Resp 16 08/20/20 04:20 BP 116/58 08/20/20 04:20 Pulse Ox 96 08/20/20 04:20 Intake & Output 08/19/20 08/20/20 08/20/20 18:59 06:59 18:59 Intake Total 1820 1325 Balance 1820 1325 Intake: Intake, IV Titration 525 Amount Aztreonam 2 gm In Sodium 100 Chloride 0.9% 100 ml @ 33 .3 mls/hr IVPB Q8HR [facility] Rx#:[id number] Sodium Chloride 0.9% 1, 225 000 ml @ 75 mls/hr IV . [id number] [facility] Rx#:[id number] metroNIDAZOLE-NS PMX 500 200 mg In Saline 1 100ml.bag @ 100 mls/hr IVPB Q8H [facility] Rx#:[id number] Oral 1820 800 Other: Voiding Method Toilet # Voids 4 3 # Bowel Movements 1 0 - Labs CBC & Chem 7: 08/19/20 11:01 08/19/20 11:01 Labs: Abnormal Lab Results - Last 24 Hours (Table) 08/19/20 08/19/20 Range/Units 11:01 11:01 WBC 16.2 H (3.8-10.6) k/uL Neutrophils # 14.5 H (1.3-7.7) k/uL Lymphocytes # 0.8 L (1.0-4.8) k/uL Glucose 112 H (74-99) mg/dL Total Protein 5.9 L (6.3-8.2) g/dL Albumin 3.1 L (3.5-5.0) g/dL Microbiology - Last 24 Hours (Table) 08/14/20 19:48 Blood Culture - Preliminary Blood No Growth after 120 hours
[2020-08-20] MEDS: SODIUM CHLORIDE 0.9% 1,000 ML IV SCH ×2 (11:07→22:03)
[2020-08-20 11:57] LABS: Basophils % (A) 0 %; Eosinophils % (A) 0 %; HCT 38.8 % (34.0-46.0); Lymphocytes # (A) 0.6 k/uL (1.0-4.8); Lymphocytes % (A) 3 %; MCH 32.4 pg (25.0-35.0); MCHC 33.4 g/dL (31.0-37.0); MCV 97.1 fL (80.0-100.0); Mean Platelet Volume 7.7; Monocytes # (A) 0.5 k/uL (0-1.0); Monocytes % (A) 3 %; Neutrophils % (A) 93 %; Platelet Count 371 k/uL (150-450); RDW 12.3 % (11.5-15.5); WBC 17.3 k/uL (3.8-10.6)
[2020-08-20] MEDS: IOPAMIDOL CONTRAST (ORAL USE) VIAL PO PRN ×2 (12:33→13:31)
--- NOTE | 2020-08-20 14:19 | CT ---
EXAMINATION TYPE: CT abdomen pelvis w con DATE OF EXAM: 08/20/2020 COMPARISON: August 17, 2020 HISTORY: abdominal pain, abcess CT DLP: 1349 mGycm CONTRAST: CT scan of the abdomen and pelvis is performed with Oral Contrast and with IV Contrast, patient injec hi with 100 mL of Isovue 300. FINDINGS: LUNG BASES-: No visible nodule. No infiltrate. LIVER/GB: The gallbladder surgically absent. No space occupying hepatic lesion. Biliary tree is of normal caliber. PANCREAS: No inflammation. No distinct mass. SPLEEN: No splenic enlargement. No lesion seen. ADRENALS: No nodule. No thickening. KIDNEYS/BLADDER: No hydronephrosis. No nephrolithiasis. No distinct renal mass. Urinary bladder g rossly unremarkable. BOWEL: Normal appendix. Previously noted pelvic abscess is no longer visible. No new abscess or resi dual abscess seen. Postoperative changes rectosigmoid colon. Minimal presacral stranding noted likely postoperative in nature. Normal bowel caliber. No inflammation. GENITAL ORGANS: No gross abnormality. LYMPH NODES: No greater than 1cm abdominal or pelvic lymph nodes are appreciated. AORTA: No significant abnormality. OSSEOUS STRUCTURES: Postoperative changes L4-5. OTHER: No significant additional abnormality is seen. IMPRESSION: 1. Previously noted pelvic abscess is no longer visible. No new abscess or residual abscess seen. Pos toperative changes rectosigmoid colon.
--- NOTE | 2020-08-20 16:02 | P.PN ---
Subjective Progress Note Date: 08/20/20 Principal diagnosis: crohns disease, abcess she was seen and examined lying in bed. She states abdominal pain has improved significantly. She has had no further vaginal drainage, vaginal bleeding, or reports of stool from the vagina. Patient states she has been afebrile through the weekend. She remains on IV antibiotics per recommendations from infectious disease. Objective - Vital Signs Vital signs: Vital Signs Temp 97.7 F 08/20/20 04:20 Pulse 51 L 08/20/20 04:20 Resp 16 08/20/20 04:20 BP 116/58 08/20/20 04:20 Pulse Ox 96 08/20/20 04:20 Intake & Output 08/19/20 08/20/20 08/20/20 18:59 06:59 18:59 Intake Total 1820 1325 Balance 1820 1325 Intake: Intake, IV Titration 525 Amount Aztreonam 2 gm In Sodium 100 Chloride 0.9% 100 ml @ 33 .3 mls/hr IVPB Q8HR [facility] Rx#:[id number] Sodium Chloride 0.9% 1, 225 000 ml @ 75 mls/hr IV . [id number] [facility] Rx#:[id number] metroNIDAZOLE-NS PMX 500 200 mg In Saline 1 100ml.bag @ 100 mls/hr IVPB Q8H [facility] Rx#:[id number] Oral 1820 800 Other: Voiding Method Toilet # Voids 4 3 # Bowel Movements 1 0 - Exam General appearance: The patient is alert, oriented, appears in no acute distress. HET: Head is normocephalic and atraumatic. Conjunctiva pink. Sclera anicteric. Neck: Supple without lymphadenopathy. Abdomen: Soft, mild lower abdominal tenderness, nondistended with bowel sounds. No guarding or rigidity. Extremities: Normal skin color and turgor. No pedal edema Neurological: No focal deficits. Alert and oriented 3. - Labs CBC & Chem 7: 08/20/20 11:31 08/19/20 11:01 Labs: Abnormal Lab Results - Last 24 Hours (Table) 08/19/20 08/19/20 Range/Units 11:01 11:01 WBC 16.2 H (3.8-10.6) k/uL Neutrophils # 14.5 H (1.3-7.7) k/uL Lymphocytes # 0.8 L (1.0-4.8) k/uL Glucose 112 H (74-99) mg/dL Total Protein 5.9 L (6.3-8.2) g/dL Albumin 3.1 L (3.5-5.0) g/dL Microbiology - Last 24 Hours (Table) 08/14/20 19:48 Blood Culture - Preliminary Blood No Growth after 120 hours Assessment and Plan (1) Crohn's disease Narrative/Plan: Patient with a long-standing history of Crohn's disease diagnosed at age 20, status post subtotal colectomy with ileorectal anastomosis several years ago who developed recurrent Crohn's disease at the ileocolic anastomotic stricture for which he was started on Remicade infusions about 6-8 months ago. 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 Chavarria. She presented to the hospital with lower abdominal pain and pelvic pain. CT showed possible abscess behind the rectum anterior to the bladder. It was discussed with patient there is likely a vaginal fistula formation. Also discussed with patient there is a high probability in future for the need of ileostomy. Continue with current medical management, IV Solu-Medrol 20 mg every 8 hours has been added Patient underwent colonoscopy per Dr. Harris with very tight anastomotic stricture just proximal to the anus. And possible fistula opening in the vaginal wall. Current Visit: Yes Status: Acute Code(s): K50.90 - CROHN'S DISEASE, UNSPECIFIED, WITHOUT COMPLICATIONS SNOMED Code(s): 86655610 (2) Intra-abdominal abscess Narrative/Plan: Surgery on consult, Repeat CT of the abdomen ordered for today. Infectious disease remains on consult for antibiotic therapy. repeat CT of abdomen shows previously noted pelvic abscess is no longer visible. No new abscess or residual abscess seen. Postoperative changes rectosigmoid colon. Current Visit: Yes Status: Acute Code(s): K65.1 - PERITONEAL ABSCESS SNOMED Code(s): 00341613 Plan: 1. Continue with antibiotics per recommendations from infectious disease 2. Patient status post colonoscopy per surgical services 3. Continue with MiraLAX daily 4. Repeat CBC daily 5. Solu-Medrol 20 mg IV every 8 hours 6. Diet as tolerated 7. patient to follow-up with colorectal surgeon in the outpatient setting with consideration for surgical intervention given concerns for fistula Thank you for this consult we will continue to follow closely Dr. Collier I agree with the dictator's note, documented as a scribe by Nadine Vieira.
--- NOTE | 2020-08-20 16:08 | PN ---
PROGRESS NOTE DATE OF SERVICE: 08/20/2020. This 50-year-old woman was admitted with significant pelvic abscess also suspected of colovaginal fistula. RN CHEMICAL DEPENDENCY seen the patient. Repeat CT scan of the abdomen and pelvis was recommended. Patient on IV antibiotics. No chest pain. No palpitations. No fever. PHYSICAL EXAMINATION: On exam, alert and oriented x3. Pulse 74, blood pressure 128/72, respiration 16, temperature 98 degrees, pulse ox 96% on room air. HEENT: Conjunctivae normal. NECK: No jugular venous distention. CARDIOVASCULAR: S1, S2 muffled. RESPIRATORY SYSTEM: Breath sounds diminished at the bases. A few scattered rhonchi and crackles. ABDOMEN: Soft, nontender. LEGS: No edema. No swelling. NERVOUS SYSTEM: No focal deficits. LABS: WBC 17.3. ASSESSMENT: 1. Back pain and difficulty in micturition. Possible acute pelvic abscess anterior to the rectum as well as closely to the bladder, possibly secondary to Crohn's disease and status post spontaneous drainage, on IV antibiotics. 2. Crohn's disease, longstanding with possible acute exacerbation, IV steroids. 3. Increased WBC. 4. Rule out colovaginal fistula. 5. Hyponatremia. 6. Hypertension. 7. History of bowel obstruction. 8. Stricture possibly. 9. Apparent drug-induced lupus recently. 10.History of back surgery. 11.History of bowel resection. 12.History of cholecystectomy. 13.History of anxiety. 14.History of nicotine dependence. 15.FULL CODE. RECOMMENDATIONS AND DISCUSSION: Recommend to continue current medications, continue symptomatic treatment. Otherwise, at this time I recommend continue the antibiotics. Repeat CAT scan. Continue steroids. Guarded prognosis. Further recommendations to follow. MMODL / IJN: [id number] /
[2020-08-20] MEDS: amLODIPine 10 MG TAB PO SCH (20:53)
--- NOTE | 2020-08-20 22:03 | PN ---
PROGRESS NOTE DATE OF SURGERY: 08/20/2020 REASON FOR FOLLOWUP: Pelvic abscess with a question of colovaginal fistula. INTERVAL HISTORY: The patient is currently afebrile. The patient is breathing comfortably. Abdominal pain is currently controlled. Denies having any chest pain or shortness of breath or cough. No reports of vaginal drainage or diarrhea. PHYSICAL EXAMINATION: Blood pressure 128/70 with a pulse 74, temperature 98. She is 96% on room air. General description is a middle-aged female up in the bed in no distress. RESPIRATORY SYSTEM: Unlabored breathing. Clear to auscultation anteriorly. HEART: S1, S2. Regular rate and rhythm. ABDOMEN: Soft. No tenderness. LABS: Hemoglobin is 13, white count 17.3. Repeat CT did show overall resolution of the pelvic abscess. DIAGNOSTIC IMPRESSION AND PLAN: Patient with a pelvic abscess with spontaneous drainage through the colovaginal fistula. The patient is currently covered with Azactam and Flagyl because of MULTIPLE ANTIBIOTIC ALLERGIES. May consider switching over to Invanz for a short course. Close outpatient followup. Questions and concerns have been answered. MMODL / IJN: [id number] /
[2020-08-21] MEDS: HYDROmorphone 1 MG/ML 1 ML SYRINGE IVP PRN ×7 (00:53→22:23)
[2020-08-21] MEDS: AZTREONAM 2 GM in SODIUM CHLORIDE 0.9% 100 ML IVPB SCH ×2 (00:53→09:15)
[2020-08-21] MEDS: methylPREDNISolone SOD SUCCI 40 MG/ML 1 ML VIAL IV SCH ×3 (01:16→15:54)
[2020-08-21] MEDS: HEPARIN SODIUM,PORCINE 5,000 UNIT/ML 1 ML VIAL SQ SCH ×3 (03:38→20:32)
[2020-08-21] MEDS: metroNIDAZOLE-NS PMX 500 MG in SALINE 1 100ML.BAG IVPB SCH (04:04)
[2020-08-21] MEDS: PANTOPRAZOLE 40 MG/10 ML VIAL IVP SCH (08:23)
[2020-08-21] MEDS: ONDANSETRON 4 MG/2 ML VIAL IVP PRN ×2 (08:39→19:18)
[2020-08-21] MEDS: LORazepam 1 MG TAB PO PRN ×3 (08:39→21:25)
[2020-08-21] MEDS: polyethylene glycoL 3350 17 GM POWD.PACK PO PRN ×2 (09:05→21:25)
[2020-08-21] MEDS: CITALOPRAM HYDROBROMIDE 20 MG TAB PO SCH (09:36)
[2020-08-21] MEDS: LORATADINE 10 MG TAB PO SCH (09:37)
[2020-08-21] MEDS: NICOTINE 14MG/24HR PATCH TRANSDERM SCH ×2 (09:38→11:53)
[2020-08-21 09:45] LABS: Basophils # (A) 0.02 X 10*3/uL (0.00-0.10); Basophils % (A) 0.2 %; Eosinophils # (A) 0.02 X 10*3/uL (0.04-0.35); Eosinophils % (A) 0.2 %; HCT 38.6 % (37.2-46.3); HGB 12.5 g/dL (12.0-15.0); MCH 31.9 pg (27.0-32.0); MCHC 32.4 g/dL (32.0-37.0); MCV 98.5 fL (80.0-97.0); Mean Platelet Volume 10.9 fL (9.5-12.2); Monocytes # (A) 0.45 X 10*3/uL (0.20-1.00); Monocytes % (A) 3.5 %; Neutrophils # (A) 11.41 X 10*3/uL (1.80-7.70); Neutrophils % (A) 88.4 %; Platelet Count 418 X 10*3/uL (140-440); RBC 3.92 X 10*6/uL (4.10-5.20); RDW 12.3 % (11.5-14.5); WBC 12.89 X 10*3/uL (4.50-10.00)
[2020-08-21 10:25] LABS: African American GFR (CKD) 116.3 (60.0-200.0); Anion Gap 7.5 mmol/L (4.00-12.00); BUN/Creat Ratio 17.14 Ratio (12.00-20.00); Calcium 8.5 mg/dL (8.7-10.3); Carbon Dioxide 27.5 mmol/L (21.6-31.8); Non-African American GFR(CKD) 100.3 (60.0-200.0); Potassium 4.3 mmol/L (3.5-5.5)
[2020-08-21] MEDS: SODIUM CHLORIDE 0.9% 1,000 ML IV SCH ×2 (10:30→17:13)
[2020-08-21] MEDS: ERTAPENEM 1 GM in SODIUM CHLORIDE 0.9% 50 ML IVPB SCH (12:03)
--- NOTE | 2020-08-21 12:46 | P.PN ---
Subjective Progress Note Date: 08/21/20 CHIEF COMPLAINT: Abdominal pain HISTORY OF PRESENT ILLNESS: Patient is being followed for her abdominal pain. Patient has known history of Crohn's disease and had previous subtotal colectomy with ileorectal anastomosis. Patient had repeat computed tomography scan of the abdomen and pelvis yesterday which showed recent noted pelvic abscess is no longer visible. No new abscess or residual abscesses seen. Patient still reporting some abdominal pain. But, it is better than admission. She is still complaining of some nausea. She did have a small bowel movement. Afebrile. WBC 12.89 PHYSICAL EXAM: VITAL SIGNS: Reviewed. GENERAL: Well-developed in no acute distress. HEENT: No sclera icterus. Extraocular movements grossly intact. Moist buccal mucosa. Head is atraumatic, normocephalic. ABDOMEN: Soft. Nondistended. NEUROLOGIC: Alert and oriented. Cranial nerves II through XII grossly intact. ASSESSMENT: 1. Pelvic abscess resolved. Repeat computed tomography scan the abdomen and p santos shows no residual or new abscess formation. 2. Vaginal colorectal fistula 3. History of Crohn's and previous subtotal colectomy with ileorectal anastomosis PLAN: -Dr. Harris recommended ileostomy for the vaginal colorectal fistula. However, patient refused ileostomy placement. -Advance diet to regular, low fat -Continue antibiotics -Continue supportive care Physician Supervisor Delivery Department note has been reviewed by physician. Signing provider agrees with the documented findings, assessment, and plan of care. Objective - Vital Signs Vital signs: Vital Signs Temp 98.0 F 08/21/20 04:56 Pulse 50 L 08/21/20 04:56 Resp 16 08/21/20 04:56 BP 129/66 08/21/20 04:56 Pulse Ox 95 08/21/20 04:56 Intake & Output 08/20/20 08/21/20 08/21/20 18:59 06:59 18:59 Intake Total 1265 Balance 1265 Weight 63.503 kg Intake: Intake, IV Titration 625 Amount Aztreonam 2 gm In Sodium 200 Chloride 0.9% 100 ml @ 33 .3 mls/hr IVPB Q8HR [facility] Rx#:[id number] Sodium Chloride 0.9% 1, 225 000 ml @ 75 mls/hr IV . [id number] [facility] Rx#:[id number] metroNIDAZOLE-NS PMX 500 200 mg In Saline 1 100ml.bag @ 100 mls/hr IVPB Q8H [facility] Rx#:[id number] Oral 640 Other: # Voids 5 2 # Bowel Movements 4 - Labs CBC & Chem 7: 08/21/20 04:34 08/21/20 04:34 Labs: Abnormal Lab Results - Last 24 Hours (Table) 08/21/20 08/21/20 Range/Units 04:34 04:34 WBC 12.89 H (4.50-10.00) X 10*3/uL RBC 3.92 L (4.10-5.20) X 10*6/uL MCV 98.5 H (80.0-97.0) fL Immature Gran # 0.09 H (0.00-0.04) X 10*3/uL Neutrophils # 11.41 H (1.80-7.70) X 10*3/uL Eosinophils # 0.02 L (0.04-0.35) X 10*3/uL Calcium 8.5 L (8.7-10.3) mg/dL Microbiology - Last 24 Hours (Table) 08/14/20 19:48 Blood Culture - Final Blood No Growth after 144 hours
[2020-08-21] MEDS ORDERED: ONDANSETRON 4 MG/2 ML VIAL IVP STA (13:24)
--- NOTE | 2020-08-21 14:45 | PN ---
PROGRESS NOTE DATE OF SERVICE: 08/21/2020 REASON FOR FOLLOWUP: Pelvic abscess. INTERVAL HISTORY: The patient is currently afebrile. Patient is breathing comfortably. Denies having any chest pain or cough. No nausea. No vomiting. Abdominal pain has improved. No diarrhea and no drainage vaginally. PHYSICAL EXAMINATION: Blood pressure 129/66, pulse of 62, temperature 98. She is 95% on room air. General description is a middle-aged female up in the bed in no distress. RESPIRATORY SYSTEM: Unlabored breathing, clear to auscultation anteriorly. HEART: S1, S2. Regular rate and rhythm. ABDOMEN: Soft, no tenderness. No guarding or rigidity. LABS: Hemoglobin 12.5, white count 12.89, creatinine 0.7. DIAGNOSTIC IMPRESSION AND PLAN: Patient with pelvic abscess with concern for possible subsequent colovaginal fistula with drainage of the abscess spontaneously. Repeat CT did not show any abscess. Patient did have multiple antibiotic allergies. Will consider a 10-day course of IV Invanz 1 gram daily with dose today and before discharge and close outpatient followup. MMODL / IJN: [id number] /
[2020-08-21] MEDS: amLODIPine 10 MG TAB PO SCH (21:23)
--- NOTE | 2020-08-21 23:40 | P.PN ---
Subjective This is a pleasant 50 years old female with multiple medical problems Including hypertension and history of Crohn's disease, bowel obstruction and lupus. Presents with lower abdominal pain and found to have pelvic abscess with spontaneous drainage via colovaginal fistula discomfort during colonoscopy done by surgery team. Patient also has been evaluated by infectious disease team and she was on Flagyl and aztreonam which is changed today to Invanz, midline was placed with a recommendation for outpatient follow-up with [address] Harris recommended ileostomy for the vaginal colorectal fistula. However, patient refused ileostomy placement. GI team evaluated the patient due to Crohn's disease exacerbation and she was placed on Solu-Medrol 20 mg 3 times a day Patient today says that her abdominal pain is controlled at 4-5, with some nausea ongoing after advanced her diet to regular by surgery team extra dose of Zofran is a provided. However no vomiting and no issue with her bowel movement. She had some back pain on admission and is improved now and she denies any vaginal discharge Repeat CAT scan of the abdomen and pelvis showing no residual or new abscesses Objective - Vital Signs Vital signs: Vital Signs Temp 98.0 F 08/21/20 13:59 Pulse 64 08/21/20 13:59 Resp 18 08/21/20 13:59 BP 133/71 08/21/20 13:59 Pulse Ox 95 08/21/20 04:56 Intake & Output 08/20/20 08/21/20 08/21/20 18:59 06:59 18:59 Intake Total 1265 Balance 1265 Weight 63.503 kg Intake: Intake, IV Titration 625 Amount Aztreonam 2 gm In Sodium 200 Chloride 0.9% 100 ml @ 33 .3 mls/hr IVPB Q8HR [facility] Rx#:[id number] Sodium Chloride 0.9% 1, 225 000 ml @ 75 mls/hr IV . [id number] [facility] Rx#:[id number] metroNIDAZOLE-NS PMX 500 200 mg In Saline 1 100ml.bag @ 100 mls/hr IVPB Q8H [facility] Rx#:[id number] Oral 640 Other: # Voids 5 2 # Bowel Movements 4 - Exam GENERAL: The patient is alert and oriented x3, not in any acute distress. Well developed, well nourished. HEENT: Pupils are round and equally reacting to light. EOMI. No scleral icterus. No conjunctival pallor. Normocephalic, atraumatic. No pharyngeal erythema. No thyromegaly. CARDIOVASCULAR: S1 and S2 present. No murmurs, rubs, or gallops. PULMONARY: Chest is clear to auscultation, no wheezing or crackles. ABDOMEN: Soft, nontender, nondistended, normoactive bowel sounds. No palpable organomegaly. MUSCULOSKELETAL: No joint swelling or deformity. EXTREMITIES: No cyanosis, clubbing, or pedal edema. NEUROLOGICAL: Gross neurological examination did not reveal any focal deficits. SKIN: No rashes. no petechiae. - Labs CBC & Chem 7: 08/21/20 04:34 08/21/20 04:34 Labs: Abnormal Lab Results - Last 24 Hours (Table) 08/21/20 08/21/20 Range/Units 04:34 04:34 WBC 12.89 H (4.50-10.00) X 10*3/uL RBC 3.92 L (4.10-5.20) X 10*6/uL MCV 98.5 H (80.0-97.0) fL Immature Gran # 0.09 H (0.00-0.04) X 10*3/uL Neutrophils # 11.41 H (1.80-7.70) X 10*3/uL Eosinophils # 0.02 L (0.04-0.35) X 10*3/uL Calcium 8.5 L (8.7-10.3) mg/dL Microbiology - Last 24 Hours (Table) 08/14/20 19:48 Blood Culture - Final Blood No Growth after 144 hours Assessment and Plan Assessment: Pelvic abscess with spontaneous drainage via colovaginal fistula Crohn's disease exacerbation, with history of subtotal colectomy and ileorectal anastomosis. Patient refused ileostomy this admission Leukocytosis, multifactorial secondary to infection and steroids Hypertension History of bowel obstruction History of drug induced lupus History of back surgery Anxiety, not an active issue Plan: This is a pleasant 50 years old female who presents with pelvic abscess and Crohn's disease. Continue with Flagyl and Invanz as per ID team with the planned for 10 days of Invanz upon discharge as per ID team, midline placed. Continue gentle hydration. Continue with some atrophic as per GI team recommendation. GI and surgery team on the case Labs and medication were reviewed.. Continue same treatment. Continue with symptomatic treatment. Resume home medication. Monitor lytes and vitals. DVT and GI prophylaxis. Further recommendationsas per clinical course of the patient DVT prophylaxis: Subcutaneous heparin GI Prophylaxis: Ppi
[2020-08-22] MEDS: methylPREDNISolone SOD SUCCI 40 MG/ML 1 ML VIAL IV SCH ×2 (00:36→10:16)
[2020-08-22] MEDS: ONDANSETRON 4 MG/2 ML VIAL IVP PRN ×4 (01:19→23:12)
[2020-08-22] MEDS: HYDROmorphone 1 MG/ML 1 ML SYRINGE IVP PRN ×7 (01:20→23:13)
[2020-08-22] MEDS: SODIUM CHLORIDE 0.9% 1,000 ML IV SCH (01:23)
[2020-08-22] MEDS: HEPARIN SODIUM,PORCINE 5,000 UNIT/ML 1 ML VIAL SQ SCH ×3 (02:52→19:55)
[2020-08-22] MEDS: LORazepam 1 MG TAB PO PRN ×3 (08:51→21:17)
[2020-08-22] MEDS: CITALOPRAM HYDROBROMIDE 20 MG TAB PO SCH (08:51)
[2020-08-22] MEDS: LORATADINE 10 MG TAB PO SCH (08:51)
--- NOTE | 2020-08-22 09:28 | P.PN ---
Subjective Progress Note Date: 08/22/20 Principal diagnosis: crohns disease, abcess The patient is seen and examined sitting up in bed. She is tolerating her diet. She reports she has some mild discomfort in the lower abdomen. Still feels like she has some bladder pressure after voiding. However states she is waiting significant amounts. She denies any nausea or vomiting today. She's been afebrile. She had a midline placed yesterday. Objective - Vital Signs Vital signs: Vital Signs Temp 98.7 F 08/22/20 08:09 Pulse 50 L 08/22/20 08:09 Resp 17 08/22/20 08:09 BP 143/82 08/22/20 08:09 Pulse Ox 97 08/22/20 05:00 Intake & Output 08/21/20 08/22/20 08/22/20 18:59 06:59 18:59 Intake Total 990 Balance 990 Intake: IV 200 Sodium Chloride 0.9% 1, 200 000 ml @ 50 mls/hr IV . Q20H [facility] Rx#:[id number] Intake, IV Titration 500 Amount Sodium Chloride 0.9% 1, 500 000 ml @ 50 mls/hr IV . Q20H [facility] Rx#:[id number] Oral 290 Other: Voiding Method Toilet # Voids 1 - Exam General appearance: The patient is alert, oriented, appears in no acute distress. HET: Head is normocephalic and atraumatic. Conjunctiva pink. Sclera anicteric. Neck: Supple without lymphadenopathy. Abdomen: Soft, nontender, nondistended with bowel sounds. No guarding or rigidity. Extremities: Normal skin color and turgor. No pedal edema Neurological: No focal deficits. Alert and oriented 3. - Labs CBC & Chem 7: 08/22/20 07:37 08/21/20 04:34 Labs: Abnormal Lab Results - Last 24 Hours (Table) 08/21/20 08/21/20 Range/Units 04:34 04:34 WBC 12.89 H (4.50-10.00) X 10*3/uL RBC 3.92 L (4.10-5.20) X 10*6/uL MCV 98.5 H (80.0-97.0) fL Immature Gran # 0.09 H (0.00-0.04) X 10*3/uL Neutrophils # 11.41 H (1.80-7.70) X 10*3/uL Eosinophils # 0.02 L (0.04-0.35) X 10*3/uL Calcium 8.5 L (8.7-10.3) mg/dL Assessment and Plan (1) Crohn's disease Narrative/Plan: Patient with a long-standing history of Crohn's disease diagnosed at age 20, status post subtotal colectomy with ileorectal anastomosis several years ago who developed recurrent Crohn's disease at the ileocolic anastomotic stricture for which he was started on Remicade infusions about 6-8 months ago. 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 Chavarria. She presented to the hospital with lower abdominal pain and pelvic pain. CT showed possible abscess behind the rectum anterior to the bladder. It was discussed with patient there is likely a vaginal fistula formation. Also discussed with patient there is a high probability in future for the need of ileostomy. Continue with current medical management, IV Solu-Medrol 20 mg every 8 hours has been added Patient underwent colonoscopy per Dr. Harris with very tight anastomotic stricture just proximal to the anus. And possible fistula opening in the vaginal wall. Repeat computed tomography scan shows no evidence of abscess. Current Visit: Yes Status: Acute Code(s): K50.90 - CROHN'S DISEASE, UNSPECIFIED, WITHOUT COMPLICATIONS SNOMED Code(s): 43127308 (2) Intra-abdominal abscess Narrative/Plan: Surgery on consult, Repeat CT of the abdomen ordered for today. Infectious disease remains on consult for antibiotic therapy. repeat CT of abdomen shows previously noted pelvic abscess is no longer visible. No new abscess or residual abscess seen. Postoperative changes rectosigmoid colon. Current Visit: Yes Status: Acute Code(s): K65.1 - PERITONEAL ABSCESS SNOMED Code(s): 90119718 Plan: 1. Continue with antibiotics per recommendations from infectious disease 2. Patient status post colonoscopy per surgical services 3. Continue with MiraLAX daily 4. Repeat CBC daily 5. Discontinue Solu-Medrol and switched to prednisone 40 mg daily, will need a taper dose of 10 mg per week taper. 6. Diet as tolerated 7. Patient to follow-up with colorectal surgeon in the outpatient setting with consideration for surgical intervention given concerns for fistula 8. May be discharged home from a gastroenterology standpoint once clear from primary, infectious disease and surgery Thank you for this consult we will continue to follow closely Dr. Collier I agree with the dictator's note, documented as a scribe by Nadine Vieira.
[2020-08-22] MEDS: polyethylene glycoL 3350 17 GM POWD.PACK PO PRN ×2 (10:00→21:17)
[2020-08-22] MEDS: ERTAPENEM 1 GM in SODIUM CHLORIDE 0.9% 50 ML IVPB SCH (10:01)
[2020-08-22] MEDS: predniSONE 20 MG TAB PO SCH (10:01)
[2020-08-22] MEDS: PANTOPRAZOLE 40 MG/10 ML VIAL IVP SCH (10:02)
[2020-08-22] MEDS: NICOTINE 14MG/24HR PATCH TRANSDERM SCH (10:04)
[2020-08-22 11:00] LABS: Basophils # (A) 0.01 X 10*3/uL (0.00-0.10); Basophils % (A) 0.1 %; Eosinophils # (A) 0.02 X 10*3/uL (0.04-0.35); Eosinophils % (A) 0.2 %; HCT 39.1 % (37.2-46.3); HGB 12.9 g/dL (12.0-15.0); Lymphocytes # (A) 1.33 X 10*3/uL (0.90-5.00); Lymphocytes % (A) 10.1 %; MCH 32.7 pg (27.0-32.0); Mean Platelet Volume 10.9 fL (9.5-12.2); Monocytes # (A) 0.63 X 10*3/uL (0.20-1.00); Monocytes % (A) 4.8 %; Neutrophils # (A) 11.07 X 10*3/uL (1.80-7.70); Neutrophils % (A) 84.1 %; Platelet Count 437 X 10*3/uL (140-440); RBC 3.95 X 10*6/uL (4.10-5.20); RDW 12.3 % (11.5-14.5); WBC 13.15 X 10*3/uL (4.50-10.00)
--- NOTE | 2020-08-22 14:26 | P.PN ---
Subjective Progress Note Date: 08/22/20 CHIEF COMPLAINT: Abdominal pain HISTORY OF PRESENT ILLNESS: Patient is being followed for her abdominal pain. Patient has known history of Crohn's disease and had previous subtotal colectomy with ileorectal anastomosis. Patient had repeat computed tomography scan of the abdomen and pelvis which showed recent noted pelvic abscess is no longer visible. No new abscess or residual abscesses seen. Patient still reporting abdominal pain. She does rate her pain about a 5 out of 10. She has still been requiring the IV Dilaudid. Her nausea is intermittent. But better than yesterday. Afebrile. WBC 13.15 leukocytosis possibly steroid effect PHYSICAL EXAM: VITAL SIGNS: Reviewed. GENERAL: Well-developed in no acute distress. HEENT: No sclera icterus. Extraocular movements grossly intact. Moist buccal mucosa. Head is atraumatic, normocephalic. ABDOMEN: Soft. Nondistended. NEUROLOGIC: Alert and oriented. Cranial nerves II through XII grossly intact. ASSESSMENT: 1. Pelvic abscess resolved. Repeat computed tomography scan the abdomen and pelvis shows no residual or new abscess formation. 2. Vaginal colorectal fistula 3. History of Crohn's and previous subtotal colectomy with ileorectal anastomosis PLAN: -Dr. Harris recommended ileostomy for the vaginal colorectal fistula. However, patient refused ileostomy placement. -Continue regular, low fat diet -Continue antibiotics -Continue supportive care -Add oral pain medication as needed Physician Transaction Processor note has been reviewed by physician. Signing provider agrees with the documented findings, assessment, and plan of care. Objective - Vital Signs Vital signs: Vital Signs Temp 98.5 F 08/22/20 12:51 Pulse 56 L 08/22/20 12:53 Resp 18 08/22/20 12:53 BP 136/74 08/22/20 12:51 Pulse Ox 97 08/22/20 05:00 Intake & Output 08/21/20 08/22/20 08/22/20 18:59 06:59 18:59 Intake Total 990 Balance 990 Intake: IV 200 Sodium Chloride 0.9% 1, 200 000 ml @ 50 mls/hr IV . Q20H [facility] Rx#:[id number] Intake, IV Titration 500 Amount Sodium Chloride 0.9% 1, 500 000 ml @ 50 mls/hr IV . Q20H [facility] Rx#:[id number] Oral 290 Other: Voiding Method Toilet Toilet # Voids 1 - Labs CBC & Chem 7: 08/22/20 07:37 08/21/20 04:34 Labs: Abnormal Lab Results - Last 24 Hours (Table) 08/22/20 Range/Units 07:37 WBC 13.15 H (4.50-10.00) X 10*3/uL RBC 3.95 L (4.10-5.20) X 10*6/uL MCV 99.0 H (80.0-97.0) fL MCH 32.7 H (27.0-32.0) pg Immature Gran # 0.09 H (0.00-0.04) X 10*3/uL Neutrophils # 11.07 H (1.80-7.70) X 10*3/uL Eosinophils # 0.02 L (0.04-0.35) X 10*3/uL
--- NOTE | 2020-08-22 14:42 | PN ---
PROGRESS NOTE DATE OF SERVICE: 08/22/2020. REASON FOR FOLLOWUP: Pelvic abscess with multiple antibiotic allergies. INTERVAL HISTORY: The patient is currently afebrile. Patient is breathing comfortably. Denies having any chest pain or cough. No nausea, no vomiting. Abdominal pain has decreased intensity about 4/10. No further vaginal drainage. PHYSICAL EXAMINATION: Blood pressure 136/74, pulse of 56, temperature 98.5. She is 94% on room air. General description is a middle-aged female lying in bed in no distress. RESPIRATORY SYSTEM: Unlabored breathing, clear to auscultation anteriorly. HEART: S1, S2. Regular rate and rhythm. ABDOMEN: Soft, no tenderness. No guarding or rigidity. LABS: Hemoglobin is 12.9, white count 13.15, BUN of 12, creatinine 0.7. Blood and urine culture has been negative. DIAGNOSTIC IMPRESSION AND PLAN: Patient with pelvic abscess, spontaneous drainage with with concern for colovaginal fistula. Repeat CT did show resolution of the abscess. Patient did have multiple antibiotic allergies. Currently on Invanz to continue for another 10 days and close outpatient followup. MMODL / IJN: [id number] /
--- NOTE | 2020-08-22 18:39 | P.PN ---
Subjective This is a pleasant 50 years old female with multiple medical problems Including hypertension and history of Crohn's disease, bowel obstruction and lupus. Presents with lower abdominal pain and found to have pelvic abscess with spontaneous drainage via colovaginal fistula discomfort during colonoscopy done by surgery team. Patient also has been evaluated by infectious disease team and she was on Flagyl and aztreonam which is changed today to Invanz, midline was placed with a recommendation for outpatient follow-up with [address] Harris recommended ileostomy for the vaginal colorectal fistula. However, patient refused ileostomy placement. GI team evaluated the patient due to Crohn's disease exacerbation and she was placed on Solu-Medrol 20 mg 3 times a day Patient today says that her abdominal pain is controlled at 4-5, with some nausea ongoing after advanced her diet to regular by surgery team extra dose of Zofran is a provided. However no vomiting and no issue with her bowel movement. She had some back pain on admission and is improved now and she denies any vaginal discharge Repeat CAT scan of the abdomen and pelvis showing no residual or new abscesses 08/22/2020 Patient with no abdominal pain, no vaginal discharge, she is tolerating diet well, no more nausea vomiting while she is on regular diet. Her back is controlled Midline is in place Labs still showing mild leukocytosis of 13.5 K but she is also on steroids which is switched today to prednisone 40 mg daily Also she is getting Invanz Patient was instructed about follow up with colorectal surgeon as an outpatient and she agrees with this recommendation Possible discharge in 24-48 hours Objective - Vital Signs Vital signs: Vital Signs Temp 98.5 F 08/22/20 12:51 Pulse 56 L 08/22/20 12:53 Resp 18 08/22/20 12:53 BP 136/74 08/22/20 12:51 Pulse Ox 97 08/22/20 05:00 Intake & Output 08/21/20 08/22/20 08/22/20 18:59 06:59 18:59 Intake Total 990 Balance 990 Intake: IV 200 Sodium Chloride 0.9% 1, 200 000 ml @ 50 mls/hr IV . Q20H [facility] Rx#:[id number] Intake, IV Titration 500 Amount Sodium Chloride 0.9% 1, 500 000 ml @ 50 mls/hr IV . Q20H [facility] Rx#:[id number] Oral 290 Other: Voiding Method Toilet Toilet # Voids 1 - Exam GENERAL: The patient is alert and oriented x3, not in any acute distress. Well developed, well nourished. HEENT: Pupils are round and equally reacting to light. EOMI. No scleral icterus. No conjunctival pallor. Normocephalic, atraumatic. No pharyngeal erythema. No thyromegaly. CARDIOVASCULAR: S1 and S2 present. No murmurs, rubs, or gallops. PULMONARY: Chest is clear to auscultation, no wheezing or crackles. ABDOMEN: Soft, nontender, nondistended, normoactive bowel sounds. No palpable organomegaly. MUSCULOSKELETAL: No joint swelling or deformity. EXTREMITIES: No cyanosis, clubbing, or pedal edema. NEUROLOGICAL: Gross neurological examination did not reveal any focal deficits. SKIN: No rashes. no petechiae. 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 Patient refused ileostomy this admission Leukocytosis, multifactorial secondary to infection and steroids Hypertension History of bowel obstruction History of drug induced lupus History of back surgery Anxiety, not an active issue Plan: This is a pleasant 50 years old female who presents with pelvic abscess and Cr ohn's disease. Continue with Flagyl and Invanz as per ID team with the planned for 10 days of Invanz upon discharge as per ID team, midline placed. Continue gentle hydration. Continue with some atrophic as per GI team recommendation. GI and surgery team on the case Labs and medication were reviewed.. Continue same treatment. Continue with symptomatic treatment. Resume home medication. Monitor lytes and vitals. DVT and GI prophylaxis. Further recommendationsas per clinical course of the patient DVT prophylaxis: Subcutaneous heparin GI Prophylaxis: Ppi
[2020-08-22] MEDS: amLODIPine 10 MG TAB PO SCH (21:17)
[2020-08-23] MEDS: HYDROmorphone 1 MG/ML 1 ML SYRINGE IVP PRN ×2 (03:31→08:17)
[2020-08-23] MEDS: SODIUM CHLORIDE 0.9% 1,000 ML IV SCH (03:34)
[2020-08-23] MEDS: HEPARIN SODIUM,PORCINE 5,000 UNIT/ML 1 ML VIAL SQ SCH ×3 (03:36→20:42)
[2020-08-23] MEDS: ONDANSETRON 4 MG/2 ML VIAL IVP PRN (08:17)
[2020-08-23] MEDS: CITALOPRAM HYDROBROMIDE 20 MG TAB PO SCH (08:19)
[2020-08-23] MEDS: LORATADINE 10 MG TAB PO SCH (08:19)
[2020-08-23] MEDS: PANTOPRAZOLE 40 MG TABLET PO SCH (08:20)
[2020-08-23] MEDS: predniSONE 20 MG TAB PO SCH (08:20)
[2020-08-23] MEDS: NICOTINE 14MG/24HR PATCH TRANSDERM SCH (09:11)
[2020-08-23] MEDS: ERTAPENEM 1 GM in SODIUM CHLORIDE 0.9% 50 ML IVPB SCH (09:12)
[2020-08-23] MEDS: LORazepam 1 MG TAB PO PRN ×3 (09:13→20:55)
[2020-08-23] MEDS: polyethylene glycoL 3350 17 GM POWD.PACK PO PRN ×2 (09:13→20:45)
[2020-08-23 10:30] LABS: Basophils # (A) 0.02 X 10*3/uL (0.00-0.10); Basophils % (A) 0.2 %; Eosinophils # (A) 0.21 X 10*3/uL (0.04-0.35); Eosinophils % (A) 1.8 %; HCT 38.9 % (37.2-46.3); HGB 12.7 g/dL (12.0-15.0); Lymphocytes # (A) 2.62 X 10*3/uL (0.90-5.00); Lymphocytes % (A) 22.8 %; MCH 32.2 pg (27.0-32.0); MCHC 32.6 g/dL (32.0-37.0); MCV 98.7 fL (80.0-97.0); Mean Platelet Volume 10.6 fL (9.5-12.2); Monocytes # (A) 0.89 X 10*3/uL (0.20-1.00); Monocytes % (A) 7.7 %; Neutrophils # (A) 7.69 X 10*3/uL (1.80-7.70); Neutrophils % (A) 66.9 %; Platelet Count 430 X 10*3/uL (140-440); RBC 3.94 X 10*6/uL (4.10-5.20); RDW 12.4 % (11.5-14.5)
--- NOTE | 2020-08-23 10:42 | P.PN ---
Subjective Progress Note Date: 08/23/20 CHIEF COMPLAINT: Abdominal pain HISTORY OF PRESENT ILLNESS: Patient is being followed for her abdominal pain and pelvic abscess. Patient has known history of Crohn's disease and had previous subtotal colectomy with ileorectal anastomosis. Patient had repeat computed tomography scan of the abdomen and pelvis which showed recent noted pelvic abscess is no longer visible. No new abscess or residual abscesses seen. Patient reports that she did not have a good night is not feeling very well this morning. She is nauseated and still having abdominal pain. She does rate her pain about a 5 out of 10. She has still been requiring the IV Dilaudid. Afebrile. WBC 11.50 trending down PHYSICAL EXAM: VITAL SIGNS: Reviewed. GENERAL: Well-developed in no acute distress. HEENT: No sclera icterus. Extraocular movements grossly intact. Moist buccal mucosa. Head is atraumatic, normocephalic. ABDOMEN: Soft. Nondistended. Nontender NEUROLOGIC: Alert and oriented. Cranial nerves II through XII grossly intact. ASSESSMENT: 1. Pelvic abscess resolved. Repeat computed tomography scan the abdomen and pelvis shows no residual or new abscess formation. 2. Vaginal colorectal fistula 3. History of Crohn's and previous subtotal colectomy with ileorectal anastomosis PLAN: -Dr. Harris recommended ileostomy for the vaginal colorectal fistula. However, patient refused ileostomy placement. -Continue regular, low fat diet -Continue antibiotics -Continue supportive care -Add Ultram as needed for pain and monitor. Patient does have reported codeine and morphine ALLERGY Physician Recreational Counselor note has been reviewed by physician. Signing provider agrees with the documented findings, assessment, and plan of care. Objective - Vital Signs Vital signs: Vital Signs Temp 97.7 F 08/23/20 05:25 Pulse 52 L 08/23/20 05:25 Resp 18 08/23/20 05:25 BP 121/71 08/23/20 05:25 Pulse Ox 96 08/23/20 05:25 Intake & Output 08/22/20 08/23/20 08/23/20 18:59 06:59 18:59 Intake Total 600 1080 550 Balance 600 1080 550 Intake: IV 600 Sodium Chloride 0.9% 1, 600 000 ml @ 50 mls/hr IV . Q20H [facility] Rx#:[id number] Intake, IV Titration 600 Amount Sodium Chloride 0.9% 1, 600 000 ml @ 50 mls/hr IV . Q20H [facility] Rx#:[id number] Oral 480 550 Other: Voiding Method Toilet Toilet Toilet # Voids 3 - Labs CBC & Chem 7: 08/23/20 07:52 08/21/20 04:34 Labs: Abnormal Lab Results - Last 24 Hours (Table) 08/22/20 08/23/20 Range/Units 07:37 07:52 WBC 13.15 H 11.50 H (4.50-10.00) X 10*3/uL RBC 3.95 L 3.94 L (4.10-5.20) X 10*6/uL MCV 99.0 H 98.7 H (80.0-97.0) fL MCH 32.7 H 32.2 H (27.0-32.0) pg Immature Gran # 0.09 H 0.07 H (0.00-0.04) X 10*3/uL Neutrophils # 11.07 H (1.80-7.70) X 10*3/uL Eosinophils # 0.02 L (0.04-0.35) X 10*3/uL
[2020-08-23] MEDS: traMADol 50 MG TAB PO PRN ×2 (12:08→20:44)
--- NOTE | 2020-08-23 14:50 | P.PN ---
Subjective Progress Note Date: 08/23/20 Principal diagnosis: crohns disease, mayess She was seen and examined at the bedside. Acute changes through the night. Plan is for discharge home today. Antibiotics per infectious disease. Patient to go home on steroid taper dose. She will follow-up with gastroenterology in 1-2 weeks. Objective - Vital Signs Vital signs: Vital Signs Temp 97.7 F 08/23/20 05:25 Pulse 52 L 08/23/20 05:25 Resp 18 08/23/20 05:25 BP 121/71 08/23/20 05:25 Pulse Ox 96 08/23/20 05:25 Intake & Output 08/22/20 08/23/20 08/23/20 18:59 06:59 18:59 Intake Total 600 1080 550 Balance 600 1080 550 Intake: IV 600 Sodium Chloride 0.9% 1, 600 000 ml @ 50 mls/hr IV . Q20H [facility] Rx#:[id number] Intake, IV Titration 600 Amount Sodium Chloride 0.9% 1, 600 000 ml @ 50 mls/hr IV . Q20H [facility] Rx#:[id number] Oral 480 550 Other: Voiding Method Toilet Toilet Toilet # Voids 3 - Exam General appearance: The patient is alert, oriented, appears in no acute distress. HET: Head is normocephalic and atraumatic. Conjunctiva pink. Sclera anicteric. Neck: Supple without lymphadenopathy. Abdomen: Soft, nontender, nondistended with bowel sounds. No guarding or rigidity. Extremities: Normal skin color and turgor. No pedal edema Neurological: No focal deficits. Alert and oriented 3. - Labs CBC & Chem 7: 08/23/20 07:52 08/21/20 04:34 Labs: Abnormal Lab Results - Last 24 Hours (Table) 08/23/20 Range/Units 07:52 WBC 11.50 H (4.50-10.00) X 10*3/uL RBC 3.94 L (4.10-5.20) X 10*6/uL MCV 98.7 H (80.0-97.0) fL MCH 32.2 H (27.0-32.0) pg Immature Gran # 0.07 H (0.00-0.04) X 10*3/uL Assessment and Plan (1) Crohn's disease Narrative/Plan: Patient with a long-standing history of Crohn's disease diagnosed at age 20, status post subtotal colectomy with ileorectal anastomosis several years ago who developed recurrent Crohn's disease at the ileocolic anastomotic stricture for which he was started on Remicade infusions about 6-8 months ago. 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 Chavarria. She presented to the hospital with lower abdominal pain and pelvic pain. CT showed possible abscess behind the rectum anterior to the bladder. It was discussed with patient there is possible vaginal fistula formation. Also discussed with patient there is a high probability in future for the need of ileostomy. Continue with current medical management, IV Solu-Medrol 20 mg every 8 hours has been added Patient underwent colonoscopy per Dr. Harris with very tight anastomotic stricture just proximal to the anus. And possible fistula opening in the vagin al wall. Repeat computed tomography scan shows no evidence of abscess. Current Visit: Yes Status: Acute Code(s): K50.90 - CROHN'S DISEASE, UNSPECIFIED, WITHOUT COMPLICATIONS SNOMED Code(s): 24579629 (2) Intra-abdominal abscess Narrative/Plan: Surgery on consult, Repeat CT of the abdomen ordered for today. Infectious disease remains on consult for antibiotic therapy. repeat CT of abdomen shows previously noted pelvic abscess is no longer visible. No new abscess or residual abscess seen. Postoperative changes rectosigmoid colon. Current Visit: Yes Status: Acute Code(s): K65.1 - PERITONEAL ABSCESS SNOMED Code(s): 00212317 Plan: 1. Continue with antibiotics per recommendations from infectious disease 2. Patient status post colonoscopy per surgical services 3. Continue with MiraLAX daily 4. Repeat CBC daily 5. Discontinue Solu-Medrol and switched to prednisone 40 mg daily, will need a taper dose of 10 mg per week taper. 6. Diet as tolerated 7. Patient to follow-up with colorectal surgeon in the outpatient setting with consideration for surgical intervention given concerns for fistula 8. May be discharged home from a gastroenterology standpoint once clear from primary, infectious disease and surgery Thank you for this consult we will continue to follow closely Dr. Collier I agree with the dictator's note, documented as a scribe by Nadine Vieira.
--- NOTE | 2020-08-23 16:11 | PN ---
PROGRESS NOTE DATE OF SERVICE: 08/23/2020 REASON FOR FOLLOWUP: Abdominal abscess and colovaginal fistula. INTERVAL HISTORY: The patient is currently afebrile. The patient is breathing comfortably. The patient denies having any chest pain or shortness of breath or cough. Abdominal pain is currently controlled. No nausea, no vomiting or diarrhea. PHYSICAL EXAMINATION: Blood pressure 122/75, pulse of 65, temperature 97.5. She is 97% on room air. General description is a middle-aged female lying in bed in no distress. RESPIRATORY SYSTEM: Unlabored breathing. Clear to auscultation anteriorly. HEART: S1, S2. Regular rate and rhythm. ABDOMEN: Soft. No tenderness. LABS: Hemoglobin is 12.7, white count 12.50. DIAGNOSTIC IMPRESSION AND PLAN: Patient with abdominal abscess in this patient who did have a possible colovaginal fistula. Repeat CT scan did not show any abscess. The patient is covered with Invanz. Clinically responded to it. He will finish therapy with IV Invanz in the outpatient setting and close outpatient followup. Questions and concerns were answered. MMODL / IJN: [id number] /
--- NOTE | 2020-08-23 19:44 | P.PN ---
Subjective This is a pleasant 50 years old female with multiple medical problems Including hypertension and history of Crohn's disease, bowel obstruction and lupus. Presents with lower abdominal pain and found to have pelvic abscess with spontaneous drainage via colovaginal fistula discomfort during colonoscopy done by surgery team. Patient also has been evaluated by infectious disease team and she was on Flagyl and aztreonam which is changed today to Invanz, midline was placed with a recommendation for outpatient follow-up with [address] Harris recommended ileostomy for the vaginal colorectal fistula. However, patient refused ileostomy placement. GI team evaluated the patient due to Crohn's disease exacerbation and she was placed on Solu-Medrol 20 mg 3 times a day Patient today says that her abdominal pain is controlled at 4-5, with some nausea ongoing after advanced her diet to regular by surgery team extra dose of Zofran is a provided. However no vomiting and no issue with her bowel movement. She had some back pain on admission and is improved now and she denies any vaginal discharge Repeat CAT scan of the abdomen and pelvis showing no residual or new abscesses 08/22/2020 Patient with no abdominal pain, no vaginal discharge, she is tolerating diet well, no more nausea vomiting while she is on regular diet. Her back is controlled Midline is in place Labs still showing mild leukocytosis of 13.5 K but she is also on steroids which is switched today to prednisone 40 mg daily Also she is getting Invanz Patient was instructed about follow up with colorectal surgeon as an outpatient and she agrees with this recommendation Possible discharge in 24-48 hours 08/23/2020 Patient today was still complaining of from her abdominal pain Patient is awake and alert and since yesterday she is was asking to be discharged. Her lower abdominal pain looks controlled however she still taking Dilaudid 1 mg, today Ultram was started by surgery team and I discussed the case with the primary surgery team, patient is not ready for discharge today and I will keep monitoring. Lower Dilaudid to 0.5 mg IV fluids stopped, antibiotics were changed to Invanz and she has midline in the left arm, also her steroids were switched to oral prednisone for her Crohn's exacerbation. Objective - Vital Signs Vital signs: Vital Signs Temp 97.5 F L 08/23/20 12:20 Pulse 65 08/23/20 12:20 Resp 16 08/23/20 12:20 BP 122/75 08/23/20 12:20 Pulse Ox 97 08/23/20 12:20 Intake & Output 08/23/20 08/23/20 08/24/20 06:59 18:59 06:59 Intake Total 1080 550 Balance 1080 550 Intake: Intake, IV Titration 600 Amount Sodium Chloride 0.9% 1, 600 000 ml @ 50 mls/hr IV . Q20H [facility] Rx#:[id number] Oral 480 550 Other: Voiding Method Toilet Toilet # Voids 3 2 - Exam GENERAL: The patient is alert and oriented x3, not in any acute distress. Well developed, well nourished. HEENT: Pupils are round and equally reacting to light. EOMI. No scleral icterus. No conjunctival pallor. Normocephalic, atraumatic. No pharyngeal erythema. No thyromegaly. CARDIOVASCULAR: S1 and S2 present. No murmurs, rubs, or gallops. PULMONARY: Chest is clear to auscultation, no wheezing or crackles. ABDOMEN: Soft, nontender, nondistended, normoactive bowel sounds. No palpable organomegaly. MUSCULOSKELETAL: No joint swelling or deformity. EXTREMITIES: No cyanosis, clubbing, or pedal edema. NEUROLOGICAL: Gross neurological examination did not reveal any focal deficits. SKIN: No rashes. no petechiae. 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 Patient refused ileostomy this admission Leukocytosis, multifactorial secondary to infection and steroids Hypertension History of bowel obstruction History of drug induced lupus History of back surgery Anxiety, not an active issue Plan: This is a pleasant 50 years old female who presents with pelvic abscess and Crohn's disease. Continue with Flagyl and Invanz as per ID team with the planned for 10 days of Invanz upon discharge as per ID team, midline placed. Continue gentle hydration. Continue with some atrophic as per GI team recommendation. GI and surgery team on the case Labs and medication were reviewed.. Continue same treatment. Continue with symptomatic treatment. Resume home medication. Monitor lytes and vitals. DVT and GI prophylaxis. Further recommendationsas per clinical course of the patient DVT prophylaxis: Subcutaneous heparin GI Prophylaxis: Ppi
[2020-08-23 19:59] VITALS: RESP 18
[2020-08-23] MEDS: amLODIPine 10 MG TAB PO SCH (20:44)
[2020-08-24] MEDS: HYDROmorphone 1 MG/ML 1 ML SYRINGE IVP PRN ×3 (00:05→08:40)
[2020-08-24] MEDS: ONDANSETRON 4 MG/2 ML VIAL IVP PRN ×2 (00:05→08:39)
[2020-08-24] MEDS: HEPARIN SODIUM,PORCINE 5,000 UNIT/ML 1 ML VIAL SQ SCH ×2 (03:56→12:38)
[2020-08-24 05:08] VITALS: BP 100/59; PULSE 54; TEMP 97.4
[2020-08-24] MEDS: polyethylene glycoL 3350 17 GM POWD.PACK PO PRN (08:39)
[2020-08-24] MEDS: PANTOPRAZOLE 40 MG TABLET PO SCH (08:39)
[2020-08-24] MEDS: LORazepam 1 MG TAB PO PRN ×2 (08:39→14:33)
[2020-08-24] MEDS: NICOTINE 14MG/24HR PATCH TRANSDERM SCH (08:40)
[2020-08-24] MEDS: predniSONE 20 MG TAB PO SCH (08:40)
[2020-08-24] MEDS: CITALOPRAM HYDROBROMIDE 20 MG TAB PO SCH (08:40)
[2020-08-24] MEDS: LORATADINE 10 MG TAB PO SCH (08:40)
[2020-08-24] MEDS: ERTAPENEM 1 GM in SODIUM CHLORIDE 0.9% 50 ML IVPB SCH (09:00)
[2020-08-24 09:02] LABS: Basophils % (A) 0 %; Eosinophils # (A) 0.2 k/uL (0-0.7); Eosinophils % (A) 2 %; HCT 43.5 % (34.0-46.0); HGB 14.2 gm/dL (11.4-16.0); Lymphocytes # (A) 2.6 k/uL (1.0-4.8); Lymphocytes % (A) 23 %; MCH 32.3 pg (25.0-35.0); MCHC 32.8 g/dL (31.0-37.0); MCV 98.6 fL (80.0-100.0); Mean Platelet Volume 7.4; Monocytes # (A) 0.7 k/uL (0-1.0); Monocytes % (A) 6 %; Neutrophils # (A) 7.4 k/uL (1.3-7.7); Neutrophils % (A) 67 %; Platelet Count 455 k/uL (150-450); RBC 4.41 m/uL (3.80-5.40); RDW 12.5 % (11.5-15.5); WBC 11.1 k/uL (3.8-10.6)
[2020-08-24] MEDS ORDERED: traMADol 50 MG TAB PO SCH (13:00)
--- NOTE | 2020-08-24 14:24 | P.DS ---
Providers Date of admission: 08/14/20 17:42 Expected date of discharge: 08/24/20 Attending physician: Paddy Harris Consults: 08/14/20 18:38 Consult Physician Urgent Consulting Provider: Bobbi Berrios Consult Reason/Comments: abdominal abscess, leukocytosis Do you want consulting provider notified?: Yes 08/14/20 19:19 Consult Physician Routine Consulting Provider: Mack Franco Consult Reason/Comments: abscess crohns Do you want consulting provider notified?: Yes Consult Physician Routine Consulting Provider: Vijaya Russell Consult Reason/Comments: crohns Do you want consulting provider notified?: Yes 08/17/20 10:12 Consult Physician Routine Consulting Provider: Brandi Sánchez Consult Reason/Comments: possible colovaginal fistula Do you want consulting provider notified?: Yes Primary care physician: Akil Ramirez MD Hospital Course: Discharge diagnosis 1. Pelvic abscess resolved. Repeat computed tomography scan the abdomen and pelvis shows no residual or new abscess formation. 2. Vaginal colorectal fistula 3. History of Crohn's and previous subtotal colectomy with ileorectal anastomosis Hospital course This is a 50-year-old female known history of Crohn's disease. She underwent previous subtotal colectomy with ileal rectal anastomosis. Patient presents emergently complaints abdominal pain. Her CAT scan is suggestive of an abscess in the pelvis between the rectum and the bladder. Patient was started on IV antibiotics. She's followed by infectious disease, medical service and GI service. Patient's abscess spontaneously drained. Patient underwent colonoscopy with Dr. Harris. The postoperative diagnosis was pelvic abscess with possible fistula to the vagina. Dr. Harris had recommended ileostomy for the vaginal colorectal fistula. However, patient refused ileostomy placement. Patient would like to follow-up outpatient with colorectal specialist from [facility] for second opinion before proceeding with any further surgery. Patient did have a repeat computed tomography scan of the abdomen and pelvis which showed no residual or new abscess formation. Her pain is controlled. She will be discharged home with IV Invanz for 10 days via midline. Patient also being discharged on oral prednisone per GI service recommendations. Patient is afebrile. Her white count is trending down. Her pain is controlled. She is tolerating diet. She is stable for discharge. Please refer to chart for any further details. Physician Casino Floor Supervisor note has been reviewed by physician. Signing provider agrees with the documented findings, assessment, and plan of care. Patient Condition at Discharge: Stable Plan - Discharge Summary Discharge Rx Participant: No New Discharge Prescriptions: New Ertapenem [INVanz] 1 gm IVPB DAILY 10 Days #10 vial Pantoprazole [Protonix] 40 mg PO DAILY #30 tablet. predniSONE 10 mg PO DIRECTED #70 tab Ketorolac [Toradol] 10 mg PO Q6HR PRN #12 tab PRN Reason: Pain traMADol HCl [Ultram] 100 mg PO QID PRN #12 tab PRN Reason: Pain Ondansetron Odt [Zofran Odt] 4 mg PO Q8HR PRN #30 tab PRN Reason: Nausea Continue Citalopram Hydrobromide [CeleXA] 40 mg PO DAILY amLODIPine [Norvasc] 10 mg PO HS Albuterol Sulfate [Proair Hfa] 2 puff INHALATION RT-Q4H PRN PRN Reason: Shortness Of Breath inFLIXimab [Remicade] 100 mg IVPB Q56D Levocetirizine Dihydrochloride [Xyzal] 5 mg PO DAILY LORazepam [Ativan] 0.5 mg PO BID traZODone HCL [Desyrel] 100 mg PO HS PRN PRN Reason: Insomnia polyethylene glycoL 3350 [Miralax] 17 gm PO BID PRN PRN Reason: Constipation Discontinued Ibuprofen [Motrin Ib] 800 mg PO Q8H PRN PRN Reason: abdominal pain predniSONE See Taper PO DIRECTED #70 tab Discharge Medication List Citalopram Hydrobromide [CeleXA] 40 mg PO DAILY 05/03/19 [History] amLODIPine [Norvasc] 10 mg PO HS 09/19/19 [History] Albuterol Sulfate [Proair Hfa] 2 puff INHALATION RT-Q4H PRN 05/10/20 [History] LORazepam [Ativan] 0.5 mg PO BID 05/10/20 [History] Levocetirizine Dihydrochloride [Xyzal] 5 mg PO DAILY 05/10/20 [History] inFLIXimab [Remicade] 100 mg IVPB Q56D 05/10/20 [History] traZODone HCL [Desyrel] 100 mg PO HS PRN 05/10/20 [History] polyethylene glycoL 3350 [Miralax] 17 gm PO BID PRN 08/14/20 [History] Ertapenem [INVanz] 1 gm IVPB DAILY 10 Days #10 vial 08/23/20 [Rx] Pantoprazole [Protonix] 40 mg PO DAILY #30 tablet. 08/23/20 [Rx] predniSONE 10 mg PO DIRECTED #70 tab 08/23/20 [Rx] Ketorolac [Toradol] 10 mg PO Q6HR PRN #12 tab 08/24/20 [Rx] Ondansetron Odt [Zofran Odt] 4 mg PO Q8HR PRN #30 tab 08/24/20 [Rx] traMADol HCl [Ultram] 100 mg PO QID PRN #12 tab 08/24/20 [Rx] Follow up Appointment(s)/Referral(s): Akli Ramirez MD [Primary Care Provider] - 08/29/20 9:15 am Vijaya Russell MD [Family Provider] - 09/26/20 3:15 pm (Thursday September 03, 2020 at 11:30 am) [facility], [NON-STAFF] - [facility], [REFERRING] - 1 Week Paddy Harris MD [STAFF PHYSICIAN] - 09/04/20 2:00 pm Patient Instructions/Handouts: Prednisone (By mouth), Ketorolac (By mouth), Ondansetron (By mouth), Pantoprazole (By mouth), Ertapenem (By injection), Crohn Disease (DC), Abscess (GEN), Bowel Obstruction (DC) Activity/Diet/Wound Care/Special Instructions: Heart healthy, low fat diet Activity is restricted until you see your doctor Discontinue midline after finishing 10 days of IV Invanz antibiotic Discharge Disposition: HOME WITH HOME HEALTH SERVICES
--- NOTE | 2020-08-24 15:21 | PN ---
PROGRESS NOTE DATE OF SERVICE: 08/24/2020 REASON FOR FOLLOWUP: Abdominal abscess. INTERVAL HISTORY: The patient is currently afebrile. Patient is breathing comfortably. The patient denies having any chest pain or shortness of breath or cough. Abdominal pain is currently controlled. No nausea, vomiting or diarrhea. No further drainage. PHYSICAL EXAMINATION: Blood pressure 100/59 with pulse of 54, temperature 97.4. She is 97% on room air. General description is a middle-aged female lying in bed in no distress. RESPIRATORY SYSTEM: Unlabored breathing, clear to auscultation anteriorly. HEART: S1, S2. Regular rate and rhythm. ABDOMEN: Soft, no tenderness. LABS: Hemoglobin 14.2, white count 11.1. DIAGNOSTIC IMPRESSION AND PLAN: Patient with abdominal abscess in this patient who did have spontaneous drainage with possible colovaginal fistula however no further vaginal drainage has been noticed. The patient's repeat CT scan did not show any abscess. The patient did have multiple antibiotic allergies. Currently covered with Invanz to continue outpatient for another 10 days with close outpatient followup. MMODL / IJN: [id number] /
--- NOTE | 2020-08-24 15:39 | P.PN ---
Subjective Progress Note Date: 08/24/20 Principal diagnosis: crohns disease, abcess 20-year-old female patient who is being seen for follow-up with a known history of Crohn's disease. 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 The patient is overall doing well, still states she has her abdominal pain which she rates a 5 out of 10 but states is her normal pain. She's had no further vaginal discharge, vaginal bleeding, or blood in her stool. She denies any nausea or vomiting, diet has been advanced and she is tolerating well. She has remained on IV Invanz and will go home with continued IV antibiotics per midline. She has remained afebrile. Objective - Vital Signs Vital signs: Vital Signs Temp 97.4 F L 08/24/20 05:00 Pulse 54 L 08/24/20 05:00 Resp 18 08/24/20 05:00 BP 100/59 08/24/20 05:00 Pulse Ox 97 08/24/20 05:00 Intake & Output 08/23/20 08/24/20 08/24/20 18:59 06:59 18:59 Intake Total 550 590 Balance 550 590 Intake: Oral 550 590 Other: Voiding Method Toilet Toilet Toilet # Voids 2 1 - Exam General appearance: The patient is alert, oriented, appears in no acute distress. HET: Head is normocephalic and atraumatic. Conjunctiva pink. Sclera anicteric. Neck: Supple without lymphadenopathy. Abdomen: Soft, nontender, nondistended with bowel sounds. No guarding or rigidity. Extremities: Normal skin color and turgor. No pedal edema Neurological: No focal deficits. Alert and oriented 3. - Labs CBC & Chem 7: 08/24/20 08:23 08/21/20 04:34 Labs: Abnormal Lab Results - Last 24 Hours (Table) 08/24/20 Range/Units 08:23 WBC 11.1 H (3.8-10.6) k/uL Plt Count 455 H (150-450) k/uL Assessment and Plan (1) Crohn's disease Narrative/Plan: Patient with a long-standing history of Crohn's disease diagnosed at age 20, status post subtotal colectomy with ileorectal anastomosis several years ago who developed recurrent Crohn's disease at the ileocolic anastomotic stricture for which he was started on Remicade infusions about 6-8 months ago. 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 Chavarria. She presented to the hospital with lower abdominal pain and pelvic pain. CT showed possible abscess behind the rectum anterior to the bladder. It was discussed with patient there is possible vaginal fistula formation. Also discussed with patient there is a high probability in future for the need of ileostomy. Continue with current medical management, IV Solu-Medrol 20 mg every 8 hours has been added Patient underwent colonoscopy per Dr. Harris with very tight anastomotic stricture just proximal to the anus. And possible fistula opening in the vaginal wall. Repeat computed tomography scan shows no evidence of abscess. Status: Acute Code(s): K50.90 - CROHN'S DISEASE, UNSPECIFIED, WITHOUT COMPLICATIONS SNOMED Code(s): 47477660 (2) Intra-abdominal abscess Narrative/Plan: Surgery on consult, Repeat CT of the abdomen ordered for today. Infectious disease remains on consult for antibiotic therapy. repeat CT of abdomen shows previously noted pelvic abscess is no longer visible. No new abscess or residual abscess seen. Postoperative changes rectosigmoid colon. Status: Acute Code(s): K65.1 - PERITONEAL ABSCESS SNOMED Code(s): 77443062 Plan: 1. Continue with antibiotics per recommendations from infectious disease 2. Patient status post colonoscopy per surgical services 3. Continue with MiraLAX daily 4. Repeat CBC daily 5. Discontinue Solu-Medrol and switched to prednisone 40 mg daily, will need a taper dose of 10 mg per week taper. 6. Diet as tolerated 7. Patient to follow-up with colorectal surgeon in the outpatient setting with consideration for surgical intervention given concerns for fistula 8. May be discharged home from a gastroenterology standpoint once clear from primary, infectious disease and surgery Thank you for this consult we will continue to follow closely Dr. Deyanira Russell I agree with the dictator's note, documented as a scribe by Nadine Vieira.
== END 2020-08-24 15:25 | disposition home health service (06) | DRG 393 ==
LOC: EC 14:49 → 5NMEDONC 17:42
PROVIDERS: ADMIT Surgery; ATTEND Surgery
PROC: 0UJH8ZZ Inspection of Vagina and Cul-de-sac, Via Natural or Artificial Opening Endoscopic (ICD-10-PCS; principal; 2020-08-17 09:40)
PROC: 0DJD8ZZ Inspection of Lower Intestinal Tract, Via Natural or Artificial Opening Endoscopic (ICD-10-PCS; principal; 2020-08-17 09:40)
PROC: 05HC33Z Insertion of Infusion Device into Left Basilic Vein, Percutaneous Approach (ICD-10-PCS; 2020-08-21 17:55)
DX: N82.3 Fistula of vagina to large intestine (principal); K65.1 Peritoneal abscess; K50.112 Crohn's disease of large intestine with intestinal obstruction; E87.1 Hypo-osmolality and hyponatremia; J98.11 Atelectasis; N82.8 Other female genital tract fistulae; N80.9 Endometriosis, unspecified; N73.9 Female pelvic inflammatory disease, unspecified; M54.30 Sciatica, unspecified side; Z98.1 Arthrodesis status; Z20.822 Contact with and (suspected) exposure to COVID-19; F17.210 Nicotine dependence, cigarettes, uncomplicated; F41.9 Anxiety disorder, unspecified; D72.829 Elevated white blood cell count, unspecified; T38.0X5A Adverse effect of glucocorticoids and synthetic analogues, initial encounter; I10 Essential (primary) hypertension; M19.90 Unspecified osteoarthritis, unspecified site; Z79.899 Other long term (current) drug therapy; Z88.1 Allergy status to other antibiotic agents; Z90.49 Acquired absence of other specified parts of digestive tract; Z90.710 Acquired absence of both cervix and uterus; Z98.891 History of uterine scar from previous surgery
CPT/HCPCS: 36410; 36415; 45378; 71045; 74176; 74177; 76380; 76937; 80048; 80053; 81001; 85025; 85610; 85652; 86140; 87040; 87086; 87635; 93005; 94640; 96374; 96375; 96376; 99285

== ENCOUNTER 2020-09-28 20:45 | Emergency (ER) | payer OTHER ==
[2020-09-28 20:49] VITALS: TEMP 98.2
[2020-09-28] MEDS ORDERED: PANTOPRAZOLE 40 MG/10 ML VIAL IVP STA (21:07)
[2020-09-28] MEDS ORDERED: ONDANSETRON 4 MG/2 ML VIAL IVP STA (21:13)
[2020-09-28] MEDS ORDERED: HYDROmorphone 0.5 MG/0.5 ML SYRINGE IVP STA ×2 (21:13→22:12)
[2020-09-28 21:59] LABS: Basophils # (A) 0.1 k/uL (0-0.2); Basophils % (A) 1 %; Eosinophils # (A) 0.1 k/uL (0-0.7); Eosinophils % (A) 1 %; HCT 36.3 % (34.0-46.0); HGB 12.8 gm/dL (11.4-16.0); Lymphocytes # (A) 1.4 k/uL (1.0-4.8); Lymphocytes % (A) 18 %; MCH 32.8 pg (25.0-35.0); MCHC 35.4 g/dL (31.0-37.0); Mean Platelet Volume 7.7; Monocytes # (A) 0.4 k/uL (0-1.0); Monocytes % (A) 5 %; Neutrophils # (A) 5.7 k/uL (1.3-7.7); Neutrophils % (A) 73 %; Platelet Count 256 k/uL (150-450); RBC 3.91 m/uL (3.80-5.40); WBC 7.7 k/uL (3.8-10.6)
[2020-09-28 22:01] LABS: ALT 20 U/L (4-34); AST 31 U/L (14-36); African American GFR (CKD) >90 (>60 ml/min/1.73 sqM); Albumin 3.7 g/dL (3.5-5.0); Alkaline Phosphatase 74 U/L (38-126); Anion Gap 10 mmol/L; Blood Urea Nitrogen 13 mg/dL (7-17); Calcium 8.9 mg/dL (8.4-10.2); Carbon Dioxide 18 mmol/L (22-30); Chloride 107 mmol/L (98-107); Glucose 91 mg/dL (74-99); Non-African American GFR(CKD) >90 (>60 ml/min/1.73 sqM); Potassium 3.6 mmol/L (3.5-5.1); Sodium 135 mmol/L (137-145); Total Bilirubin 0.3 mg/dL (0.2-1.3); Total Protein 6.5 g/dL (6.3-8.2)
[2020-09-28 22:05] LABS: MCV 92.8 fL (80.0-100.0)
[2020-09-28 22:15] VITALS: BP 138/78; PULSE 88; RESP 16
--- NOTE | 2020-09-28 22:16 | ED ---
General Adult HPI - General Chief complaint: GI Bleed Stated complaint: GI Bleed Time Seen by Provider: 09/28/20 21:02 Source: patient Mode of arrival: ambulatory Limitations: no limitations - History of Present Illness Initial comments: 50-year-old female with a past medical history of hypertension, Crohn's, bowel obstruction, previous colectomy with ileorectal anastomosis presents to the emergency room for a chief complaint of abdominal pain. Patient states she has rectal and anterior lower abdominal pain. States this started 3 days ago. States she has been having mucousy stools that are tinged with blood. 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 Patient refused ileostomy placement and would like to follow up outpatient at [facility] for second opinion. Patient denies fevers. Patient denies nausea or vomiting. Ppatient reports she is not currently on any medications for Crohn's and recently finished her steroids. Patient has no other complaints at this time including shortness of breath, chest pain, nausea or vomiting, headache, or visual changes. - Related Data Home Medications Medication Instructions Recorded Confirmed Citalopram Hydrobromide [CeleXA] 40 mg PO DAILY 05/03/19 08/14/20 amLODIPine [Norvasc] 10 mg PO HS 09/19/19 08/14/20 Albuterol Sulfate [Proair Hfa] 2 puff INHALATION RT-Q4H PRN 05/10/20 08/14/20 LORazepam [Ativan] 0.5 mg PO BID 05/10/20 08/14/20 Levocetirizine Dihydrochloride 5 mg PO DAILY 05/10/20 08/14/20 [Xyzal] inFLIXimab [Remicade] 100 mg IVPB Q56D 05/10/20 08/14/20 traZODone HCL [Desyrel] 100 mg PO HS PRN 05/10/20 08/14/20 polyethylene glycoL 3350 [Miralax] 17 gm PO BID PRN 08/14/20 08/14/20 Previous Rx's Medication Instructions Recorded Ertapenem [INVanz] 1 gm IVPB DAILY 10 Days #10 vial 08/23/20 Pantoprazole [Protonix] 40 mg PO DAILY #30 tablet. 08/23/20 predniSONE 10 mg PO DIRECTED #70 tab 08/23/20 Ketorolac [Toradol] 10 mg PO Q6HR PRN #12 tab 08/24/20 Ondansetron Odt [Zofran Odt] 4 mg PO Q8HR PRN #30 tab 08/24/20 traMADol HCl [Ultram] 100 mg PO QID PRN #12 tab 08/24/20 Allergies Allergy/AdvReac Type Severity Reaction Status Date / Time Cephalosporins Allergy Rash/Hives Verified 09/28/20 20:49 codeine Allergy Dyspnea Verified 09/28/20 20:49 meperidine [From Demerol] Allergy Unknown Verified 09/28/20 20:49 morphine Allergy Unknown Verified 09/28/20 20:49 Penicillins Allergy Rash/Hives Verified 09/28/20 20:49 Sulfa (Sulfonamide Allergy Unknown Verified 09/28/20 20:49 Antibiotics) Review of Systems ROS Statement: Those systems with pertinent positive or pertinent negative responses have been documented in the HPI. ROS Other: All systems not noted in ROS Statement are negative. Past Medical History Past Medical History: Hypertension Additional Past Medical History / Comment(s): chron's, bowel obstruction, Lupus History of Any Multi-Drug Resistant Organisms: None Reported Past Surgical History: Back Surgery, Bowel Resection, Section, Cholecy stectomy, Hysterectomy Additional Past Surgical History / Comment(s): Colonoscopy, colostomy with reversal, 2 spinal fusions. Past Anesthesia/Blood Transfusion Reactions: No Reported Reaction Past Psychological History: Anxiety Smoking Status: Current every day smoker Past Alcohol Use History: Occasional Past Drug Use History: None Reported - Past Family History Mother Family Medical History: No Reported History General Exam Limitations: no limitations General appearance: alert, in no apparent distress Head exam: Present: atraumatic, normocephalic, normal inspection Eye exam: Present: normal appearance, PERRL, EOMI. Absent: scleral icterus, conjunctival injection, periorbital swelling ENT exam: Present: normal exam, mucous membranes moist Neck exam: Present: normal inspection. Absent: tenderness, meningismus, lympha denopathy Respiratory exam: Present: normal lung sounds bilaterally. Absent: respiratory distress, wheezes, rales, rhonchi, stridor Cardiovascular Exam: Present: regular rate, normal rhythm, normal heart sounds. Absent: systolic murmur, diastolic murmur, rubs, gallop, clicks GI/Abdominal exam: Present: soft, normal bowel sounds. Absent: distended, tenderness, guarding, rebound, rigid Neurological exam: Present: alert Course Vital Signs 09/28/20 09/28/20 20:47 22:15 Temperature 98.2 F Pulse Rate 109 H 88 Respiratory 18 16 Rate Blood Pressure 133/78 138/78 O2 Sat by Pulse 97 98 Oximetry Medical Decision Making - Medical Decision Making Vitals are stable. CBC CMP unremarkable. Occult blood is positive, there was no gross blood on exam. CT abdomen and pelvis shows previous intestinal and surgery. Evidence for small bowel ileus, no transition point seen. Do not s uspect mechanical bowel obstruction. No pelvic abscess. Patient patient reports she has been eating and drinking without difficulty. She is having bowel movements. No vomiting. Patient states she did before she came. No clinical concern for bowel obstruction at this time. Patient was reevaluated and is having much better. Tolerating oral intake. At this time patient is stable for discharge home. I did offer steroids that she refuses. Patient will follow up with her GI doctor Dr. Hernandez and they are currently trying to get her insurance to approve a new infusion. She will also try to follow up with [facility] as she wants a second opinion by them. She does have an appointment but s he will call to try to expedite this. She'll return here for any worsening symptoms. - Lab Data Result diagrams: 09/28/20 21:41 09/28/20 21:30 Lab Results 09/28/20 09/28/20 09/28/20 Range/Units 21:30 21:30 21:30 WBC (3.8-10.6) k/uL RBC (3.80-5.40) m/uL Hgb (11.4-16.0) gm/dL Hct (34.0-46.0) % MCV (80.0-100.0) fL MCH (25.0-35.0) pg MCHC (31.0-37.0) g/dL RDW (11.5-15.5) % Plt Count (150-450) k/uL MPV Neutrophils % % Lymphocytes % % Monocytes % % Eosinophils % % Basophils % % Neutrophils # (1.3-7.7) k/uL Lymphocytes # (1.0-4.8) k/uL Monocytes # (0-1.0) k/uL Eosinophils # (0-0.7) k/uL Basophils # (0-0.2) k/uL Sodium 135 L (137-145) mmol/L Potassium 3.6 (3.5-5.1) mmol/L Chloride 107 (98-107) mmol/L Carbon Dioxide 18 L (22-30) mmol/L Anion Gap 10 mmol/L BUN 13 (7-17) mg/dL Creatinine 0.74 (0.52-1.04) mg/dL Est GFR (CKD-EPI)AfAm >90 (>60 ml/min/1.73 sqM) Est GFR (CKD-EPI)NonAf >90 (>60 ml/min/1.73 sqM) Glucose 91 (74-99) mg/dL Plasma Lactic Acid Aiden 1.7 (0.7-2.0) mmol/L Calcium 8.9 (8.4-10.2) mg/dL Total Bilirubin 0.3 (0.2-1.3) mg/dL AST 31 (14-36) U/L ALT 20 (4-34) U/L Alkaline Phosphatase 74 (38-126) U/L Total Protein 6.5 (6.3-8.2) g/dL Albumin 3.7 (3.5-5.0) g/dL Urine Color Urine Appearance (Clear) Urine pH (5.0-8.0) Ur Specific [place] (1.001-1.035) Urine Protein (Negative) Urine Glucose (UA) (Negative) Urine Ketones (Negative) Urine Blood (Negative) Urine Nitrite (Negative) Urine Bilirubin (Negative) Urine Urobilinogen (<2.0) mg/dL Ur Leukocyte Esterase (Negative) Urine RBC (0-5) /hpf Urine WBC (0-5) /hpf Ur Squamous Epith Cells (0-4) /hpf Urine Mucus (None) /hpf Stool Occult Blood Positive H (Negative) 09/28/20 09/28/20 Range/Units 21:41 22:12 WBC 7.7 (3.8-10.6) k/uL RBC 3.91 (3.80-5.40) m/uL Hgb 12.8 (11.4-16.0) gm/dL Hct 36.3 (34.0-46.0) % MCV 92.8 D (80.0-100.0) fL MCH 32.8 (25.0-35.0) pg MCHC 35.4 (31.0-37.0) g/dL RDW 12.0 (11.5-15.5) % Plt Count 256 (150-450) k/uL MPV 7.7 Neutrophils % 73 % Lymphocytes % 18 % Monocytes % 5 % Eosinophils % 1 % Basophils % 1 % Neutrophils # 5.7 (1.3-7.7) k/uL Lymphocytes # 1.4 (1.0-4.8) k/uL Monocytes # 0.4 (0-1.0) k/uL Eosinophils # 0.1 (0-0.7) k/uL Basophils # 0.1 (0-0.2) k/uL Sodium (137-145) mmol/L Potassium (3.5-5.1) mmol/L Chloride (98-107) mmol/L Carbon Dioxide (22-30) mmol/L Anion Gap mmol/L BUN (7-17) mg/dL Creatinine (0.52-1.04) mg/dL Est GFR (CKD-EPI)AfAm (>60 ml/min/1.73 sqM) Est GFR (CKD-EPI)NonAf (>60 ml/min/1.73 sqM) Glucose (74-99) mg/dL Plasma Lactic Acid Aiden (0.7-2.0) mmol/L Calcium (8.4-10.2) mg/dL Total Bilirubin (0.2-1.3) mg/dL AST (14-36) U/L ALT (4-34) U/L Alkaline Phosphatase (38-126) U/L Total Protein (6.3-8.2) g/dL Albumin (3.5-5.0) g/dL Urine Color Light Yellow Urine Appearance Clear (Clear) Urine pH 5.5 (5.0-8.0) Ur Specific [place] 1.037 H (1.001-1.035) Urine Protein Negative (Negative) Urine Glucose (UA) Negative (Negative) Urine Ketones Negative (Negative) Urine Blood Trace H (Negative) Urine Nitrite Negative (Negative) Urine Bilirubin Negative (Negative) Urine Urobilinogen <2.0 (<2.0) mg/dL Ur Leukocyte Esterase Negative (Negative) Urine RBC <1 (0-5) /hpf Urine WBC 2 (0-5) /hpf Ur Squamous Epith Cells 3 (0-4) /hpf Urine Mucus Rare H (None) /hpf Stool Occult Blood (Negative) Disposition Clinical Impression: Abdominal pain, History of Crohn's disease Disposition: HOME SELF-CARE Condition: Good Instructions (If sedation given, give patient instructions): Abdominal Pain (ED) Additional Instructions: Please try to follow-up with your GI doctor as well as your [facility] specialist as soon as possible. Return to the emergency room for any worsening symptoms. Is patient prescribed a controlled substance at d/c from ED?: No Referrals: Akil Ramirez MD [Primary Care Provider] - 1-2 days Vijaya Russell MD [STAFF PHYSICIAN] - 1-2 days Time of Disposition: 22:49
--- NOTE | 2020-09-28 22:17 | CT ---
EXAMINATION TYPE: CT abdomen pelvis w con DATE OF EXAM: 09/28/2020 COMPARISON: 08/20/2020 HISTORY: Abdominal pain, recent abscess. Hx Chrons and Lupus. CT DLP: 835.3 mGycm Automated exposure control for dose reduction was used. CONTRAST: Performed with IV Contrast, patient injected with 100 mL of Isovue 300. Lung bases are clear. There is no pleural effusion. Heart size is normal. There is no pericardial eff usion. Liver spleen pancreas appear normal. The bile ducts are not dilated. There are clips from chol ecystectomy. Stomach is large. There is no adrenal mass. Kidneys show satisfactory contrast opacification. There is no hydronephrosi s. There are some mildly dilated loops of small bowel in the right abdomen. These measure up to 3.3 c m. Ureters are not dilated. Delayed images show normal renal excretion. There is no retroperitoneal a denopathy. Bladder distends smoothly. There are surgical clips in the pelvis. There is previous surge ry on the rectosigmoid colon. I see no ascites. There is no pathologic fluid collection. There is gas down to the rectum. Lumbar vertebra have normal alignment. There is no compression fracture. There is disc surgery at L4- 5 with posterior fusion surgery at L4-5. The bony pelvis is intact. The hip joints are intact. There is no hip dysplasia. IMPRESSION: Previous intestinal surgery. There is evidence for small bowel ileus. No transition point seen. I do not suspect a mechanical bowel obstruction. No evidence of pelvic abscess. Small bowel is more disten ded than last exam.
[2020-09-28 22:24] LABS: Appearance,Urine Clear (Clear); Bilirubin,Urine Negative (Negative); Blood,Urine Trace (Negative); Color,Urine Light Yellow; Glucose,Urine (UA) Negative (Negative); Ketones,Urine Negative (Negative); Leukocyte Esterase,Urine Negative (Negative); Mucus,Urine Rare /hpf; Nitrite,Urine Negative (Negative); PH, Urine 5.5 (5.0-8.0); Protein,Urine Negative (Negative); RBC,Urine <1 /hpf (0-5); Specific Gravity,Urine 1.037 (1.001-1.035); Squamous Epithelial Cell,Urine 3 /hpf (0-4); Urobilinogen,Urine <2.0 mg/dL (<2.0); WBC,Urine 2 /hpf (0-5)
== END 2020-09-28 22:55 | disposition home or self-care (01) ==
LOC: EC 20:45
DX: R10.30 Lower abdominal pain, unspecified (principal); K50.911 Crohn's disease, unspecified, with rectal bleeding; I10 Essential (primary) hypertension; F41.9 Anxiety disorder, unspecified; F17.200 Nicotine dependence, unspecified, uncomplicated; Z79.52 Long term (current) use of systemic steroids; Z90.49 Acquired absence of other specified parts of digestive tract; Z90.710 Acquired absence of both cervix and uterus
CPT/HCPCS: 36415; 86900; 86901; 80053; 83605; 85025; 86850; 82272; 81001; 74177; 99284; 96365; 96376; 96375; J2405; C9113; J1170; Q9967